=== PATIENT | male | born 1930 | race Caucasian/White ===

== ENCOUNTER 2017-06-05 10:32 | Inpatient (IN) ==
--- NOTE | 2017-06-05 11:08 | Emergency Department Note ---
Disposition Clinical Impression: Cellulitis Qualifiers: Site of cellulitis: buttock Qualified Code(s): L03.317 - Cellulitis of buttock DVT (deep venous thrombosis) Qualifiers: DVT location: lower extremity Affected thrombotic vein of extremity: other lower extremity vein Chronicity: acute Laterality: right Qualified Code(s): I82.491 - Acute embolism and thrombosis of other specified deep vein of right lower extremity Disposition: Admitted As Inpatient Condition: Fair Referrals: Giovanni Morrow MD [Primary Care Provider] - Forms: ED Satisfaction Letter Time of Disposition: 13:46 General Adult HPI - General Chief complaint: ED Extremity Problem,Nontraumatic Stated complaint: Knee pain Time Seen by Provider: 06/05/17 10:48 Source: patient Limitations: no limitations Nursing Notes Reviewed: Yes Vital Signs Reviewed: Yes - History of Present Illness HPI Narrative: 86-year-old male presents to the emergency department with abrupt sudden onset of right knee pain that started in the middle of the night. Patient states that his knee was hot and red. Patient also reported calf pain. Patient does have a previous history of DVTs. He is currently on blood thinners. Patient denies any shortness of breath, chest pain, pressure, tightness. Patient denies any hemoptysis. Patient denies any recent travel. Patient denies any fever or chills. Patient is also complaining of some pain of the superior aspect of his gluteal cleft. Patient does wear diapers. Patient says it is going on for 3 weeks. Patient denies using any creams or ointments on this area. Pain Scale: 10 - Related Data Previous Rx's Medication Instructions Recorded HYDROcodone/Acet 5/325 mg [[place] 1 tab PO Q4-6H PRN #20 tab 03/22/17 5-325 mg] Ondansetron ODT [Zofran ODT] 4 mg SL Q6HR PRN #14 tab.rapdis 03/22/17 Allergies Allergy/AdvReac Type Severity Reaction Status Date / Time No Known Allergies Allergy Verified 03/21/17 23:14 All systems ED: reviewed and negative except as stated. Review of Systems: As Per HPI Constitutional: Denies: fever, chills Respiratory: Denies: cough, dyspnea, wheezes, hemoptysis Musculoskeletal: Reports: other (Right knee pain) Integumentary: Reports: rash (In the gluteal region) Past Medical History - Past Medical History Medical history: Reports: cancer, DVT, hypertension - Social History Smoking Status: Never smoker Smokeless Tobacco Status: No Alcohol use: Reports: none Drug use: Reports: none Physical Exam General: Well Appearing, 86-year-old male, in no acute distress Head: autraumatic, EOMI, no conjuncitval pallor, no scleral icterus, Mouth: oral mucous membranes moist Neck: neck soft, trachea midline Chest:: Equal chest wall rise Lungs: Normal lungs sounds bilaterally, no wheezes, no respiratory distress Heart: normal heart sounds, normal rate and rhythm, Abdomen: soft, non-tender, no rigidity, no guarding, no rebdound tenderness Lower Extremities: Right knee has tenderness to palpation of the lateral aspect on the lateral epicondyle. There is no effusion, no erythema, no redness, no calor, there feels to be a possible Blankens[place] cyst on the posterior popliteal fossa , tenderness upon palpation of the right calf. There does not appear to be any increased swelling of the right leg. There is, however 1+ pitting edema of the left leg. No palpable cords. exam: Appears to be erythema up on the superior aspect of the gluteal cleft that appears irritated in nature, very tender to palpation, no areas of fluctuance or induration. Neuro: Alert Psych: normal affect, normal mood - General Limitations: no limitations General appearance: alert, in no apparent distress Course Vital Signs Temperature 97.6 F 06/05/17 10:33 Pulse Rate 63 06/05/17 10:33 Respiratory Rate 18 06/05/17 10:33 Blood Pressure 142/86 06/05/17 10:33 O2 Sat by Pulse Oximetry 97 06/05/17 10:33 Temperature 97.6 F 06/05/17 10:33 Pulse Rate 71 06/05/17 13:19 Respiratory Rate 16 06/05/17 13:19 Blood Pressure 128/69 06/05/17 13:19 O2 Sat by Pulse Oximetry 97 06/05/17 13:19 Oxygen Delivery Oxygen Delivery Room Air Medical Decision Making - MDM Narrative Medical decision making narrative: 86-year-old male with past history of DVT of which she is taking blood thinners for and arthritis presents to the emergency department with right knee pain and right calf pain that is concerning for DVT. We are obtaining a Doppler of the right lower extremity to rule out a DVT as this patient's abdomen the past. We are also obtaining plain films of the right knee to rule out fracture. At this time, I do not think it is necessary to perform a needle aspiration of the right knee has his knee does not appear to be septic or gouty. Also, there is an area of irritation from the superior aspect of the gluteal cleft that is this was tender to palpation physical exam. CT scan of the pelvis was obtained and revealed possible infection without abscess of the left buttock. Again this patient Keflex here orally. Knee x-ray of the right revealed moderate to severe bicompartmental the DuoNeb changes. Patient's knee does not appear to be swollen or red or erythematous to be suspicious of septic arthritis or gout. 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 Patient is currently on Coumadin. His INR is 2.5. Due to the fact that he is therapeutic on Coumadin and is failing outpatient management for blood clot, we will initiate heparin at this time. There is also concern for further propagation of the blood clot, so we will admit this patient to the hospital at this time for further management. I discussed the plan with patient and daughter at bedside and they agree with the plan for admission. I discussed this with the hospitalist and he agrees as well. Patient was not in any acute distress and was hemodynamically stable at time of admission to the hospital. Knee X-Ray 06/05/17 10:49 IMPRESSION: Moderate to severe bicompartmental degenerative changes. D/ / Melvin Magaña MD / Melvin Magaña MD Interpreting Provider: Melvin Magaña MD Pelvis CT 06/05/17 11:18 within the prostate. Prominent nodular impression on the undersurface of the bladder, similar to the prior examination. There is asymmetric soft tissue thickening along the posterior left buttock relative to the right. There is linear soft tissue thickening extending toward the ischial tuberosity on the left which is asymmetric to the right though no rim enhancing collection is identified. Mild induration is also demonstrated of the subcutaneous fat posterior to the sacrum, without drainable collection. No soft tissue emphysema at these sites. Partially sclerotic lesion within the proximal left femur, for which fibrous dysplasia is most common in an otherwise healthy patient. Degenerative change of the spine. IMPRESSION: Asymmetric soft tissue induration at the left buttock and posterior to the sacrum, suggestive of localized inflammation or infection, without evidence of rim enhancing collection to suggest abscess. Suggest correlation with physical examination. Diverticulosis. D/ / Luca Valles MD / Luca Valles MD Interpreting Provider: Luca Valles MD Vital Signs Temperature 97.6 F 06/05/17 10:33 Pulse Rate 63 06/05/17 10:33 Respiratory Rate 18 06/05/17 10:33 Blood Pressure 142/86 06/05/17 10:33 O2 Sat by Pulse Oximetry 97 06/05/17 10:33 Temperature 97.6 F 06/05/17 10:33 Pulse Rate 71 06/05/17 13:19 Respiratory Rate 16 06/05/17 13:19 Blood Pressure 128/69 06/05/17 13:19 O2 Sat by Pulse Oximetry 97 06/05/17 13:19 Oxygen Delivery Oxygen Delivery Room Air - Medical Records Medical records reviewed: Yes I reviewed the patient's medical records. - Lab Data Lab results reviewed: Yes I reviewed the patient's lab results. Result diagrams: 06/05/17 11:31 06/05/17 11:31 Lab Results 06/05/17 06/05/17 06/05/17 Range/Units 11:31 11:31 11:31 WBC 7.9 (4.3-11.1) K/mcL RBC 4.43 (4.19-5.50) M/mcL Hgb 14.1 (12.9-16.9) g/dL Hct 42.9 (37.5-50.1) % MCV 96.8 (83.0-100.0) fL MCH 31.8 (28.0-33.3) pg MCHC 32.9 (31.6-35.5) g/dL RDW 12.5 (11.5-14.5) % Plt Count 215 (140-400) K/mcL MPV 10.9 (9.4-12.4) fL Immature Gran % 0.5 (0-4) % Seg Neutrophils % 67.5 % Lymphocytes % 19.3 % Monocytes % 10.6 % Eosinophils % 1.5 % Basophils % 0.6 % Neutrophils # 5.4 (1.6-8.9) K/mcL Lymphocytes # 1.5 (0.6-4.6) K/mcL Monocytes # 0.8 (0.0-1.3) K/mcL Eosinophils # 0.1 (0.0-0.6) K/mcL Basophils # 0.1 (0.0-0.2) K/mcL Immature Plt Fraction 4.9 (1.1-6.1) % PT 26.5 H (9.4-12.1) Seconds INR 2.4 APTT 40.1 H (26.0-36.0) Seconds Sodium 141 (136-145) mEq/L Potassium 4.1 (3.5-4.5) mEq/L Chloride 107 (98-109) mEq/L Carbon Dioxide 24 (19-29) mEq/L BUN 21 (8-26) mg/dL Creatinine 1.18 (0.72-1.25) mg/dL Est GFR ( Amer) > 60 (> 60) Est GFR (Non-Af Amer) 59 L (> 60) BUN/Creatinine Ratio 18 (6-26) Glucose 132 H (70-99) mg/dL Calculated Osmolality 297 (280-300) Calcium 9.4 (8.6-10.8) mg/dL - Radiology Data Radiology results reviewed: Yes I reviewed the patient's radiology results. Critical Care Time Critical Care Time: Yes Total Critical Care Time: 35 Attestation: Critical care performed: Time is exclusive of separately billable procedures. Time includes: direct patient care, patient reassessment, coordination of patient care, interpretation of data (laboratory data, radiology data, and respiratory data), review of patient's medical records, medical consultation and documentation of patient care. Procedures included in critical care time: Procedures excluded from critical care time: Attestation Statement - Attestation Attestation: I, Chinedu Waters DO, examined this patient [id number] and my medical decision-making was reviewed with Dr. Fuentes Barnhart, Resident Physician. I agree with the documented findings, disposition and treatment plan as described except to the extent set forth below. Please see my progress notes for details. 86-year-old male presents to the emergency room with multiple complaints including right knee pain that has been there since Tuesday as well as skin irritation to the back of his tailbone. Patient currently wears diapers and has appears to be skin excoriation over the sacral area of the back. Does not appear to be any rectal involvement no visible signs of hemorrhoid. No firm indurated areas noted on exam. Patient does have tenderness and feels pressure when he sitting down on the couch or on a firm surface. Patient denies any other trauma or injury. No fevers no chills no nausea vomiting or diarrhea. Denies chest pain shortness of breath headache or vision change this time. Patient has not been on any antibiotics recently and has not had any manipulation or surgery. Patient also is complaining of right knee pain since Tuesday. He denies any redness or irritation to the knee. He has had this several times in the past and has required cortisone shots to help with the symptoms. Clinical examination shows a well-appearing lower extremity with no redness no swelling no visible signs of joint effusion. He does have tenderness to the medial compartment of the knee but no visible signs of irritation trauma or injury. He has normal neuromuscular function distally to the affected extremity at this time. No other visible signs of cellulitis or infectious etiology. He does have a history of deep venous thrombosis which is concerning at this point considering the presentation of the knee pain at this time. Patient will have Doppler study as well as imaging of the right lower extremity and CT of the pelvis with IV contrast making sure there is no subcutaneous abscesses noted on evaluation. See detailed documentation of the physical exam, medical intervention, medical decision-making and disposition the resident physician's note [id number] Patient found to have new propagation of DVT in the right lower extremity. Heparin order set was utilized at this time. Patient does not have any acute infectious etiology except for cellulitis on the posterior aspect of his back. Was given at this time. Patient discussed with the hospitals for admission. Other concerns or issues noted. Patient is currently therapeutic with his Coumadin to there is concern for progression of clot burden secondary to unknown etiology. Patient will be admitted for further evaluation. 1400 Patient has no acute signs of melenic stool hemoglobin is 14.1. Is currently appropriately anticoagulated on Coumadin. Clinical concern for acute GI bleed patient will be started on heparin drip at this time until definitive treatment is completed with either new anticoagulant or IVC filter.
[2017-06-05] MEDS ORDERED: 0.9 % Sodium Chloride 1,000 ML IVC ONE (11:18)
[2017-06-05 12:02] LABS: BUN/Creatinine Ratio 18 (6-26); Blood Urea Nitrogen 21 mg/dL (8-26); Calcium 9.4 mg/dL (8.6-10.8); Carbon Dioxide 24 mEq/L (19-29); Chloride 107 mEq/L (98-109); Glucose 132 mg/dL (70-99); Osmolality,Calculated 297 (280-300); Potassium 4.1 mEq/L (3.5-4.5); Sodium 141 mEq/L (136-145); eGFR For African Americans > 60 (> 60); eGFR For Non-African Americans 59 (> 60)
[2017-06-05 12:22] LABS: Basophils # 0.1 K/mcL (0.0-0.2); Basophils % 0.6 %; Eosinophils # 0.1 K/mcL (0.0-0.6); Eosinophils % 1.5 %; Hematocrit 42.9 % (37.5-50.1); Hemoglobin 14.1 g/dL (12.9-16.9); Immature Granulocytes % 0.5 % (0-4); Immature Platelets 4.9 % (1.1-6.1); Lymphocytes # 1.5 K/mcL (0.6-4.6); Lymphocytes % 19.3 %; Mean Corpuscular HGB Conc 32.9 g/dL (31.6-35.5); Mean Corpuscular Hemoglobin 31.8 pg (28.0-33.3); Mean Corpuscular Volume 96.8 fL (83.0-100.0); Mean Platelet Volume 10.9 fL (9.4-12.4); Monocytes # 0.8 K/mcL (0.0-1.3); Monocytes % 10.6 %; Neutrophils # 5.4 K/mcL (1.6-8.9); Platelet Count 215 K/mcL (140-400); Red Blood Count 4.43 M/mcL (4.19-5.50); Red Cell Distribution Width 12.5 % (11.5-14.5); Segmented Neutrophils % 67.5 %
[2017-06-05 12:29] LABS: INR 2.4; Prothrombin Time 26.5 Seconds (9.4-12.1)
[2017-06-05 12:31] LABS: Activated Partial Thrombo Time 40.1 Seconds (26.0-36.0)
[2017-06-05] MEDS ORDERED: *HR* Heparin 5,000 UNIT/ML VIAL IVP PRN ×2 (12:41)
[2017-06-05] MEDS ORDERED: *HR* Heparin 5,000 UNIT/ML VIAL IVP ONE (12:41)
[2017-06-05] MEDS: Heparin 25,000 UNIT/500 ML D5W 25,000 UNIT/500 ML MLS IVC SCH (13:09)
[2017-06-05] MEDS ORDERED: cephALEXin 250 MG CAPSULE PO ONE (13:37)
[2017-06-05] MEDS ORDERED: *HR* HYDROcodone/Acet 5/325 mg TABLET PO PRN (17:05)
[2017-06-05] MEDS ORDERED: Ondansetron 4 MG/2 ML VIAL IVP PRN (17:05)
[2017-06-05] MEDS ORDERED: *HR* Morphine 2 MG/ML SYRINGE IVP PRN (17:05)
[2017-06-05] MEDS ORDERED: Naloxone 0.4 MG/ML INJ IVP PRN (17:05)
[2017-06-05] MEDS ORDERED: Acetaminophen 325 MG TABLET PO PRN (17:05)
--- NOTE | 2017-06-05 19:40 | Internal Med History&Physical ---
<JackierachealдмитрийAncelmo puga - Last Filed: 06/05/17 21:05> Date of Encounter: 06/05/17 Time of Encounter: 17:00 Assessment and Plan (1) DVT (deep venous thrombosis) Current visit: Yes Status: Acute Acute DVT in RLE. Pt. has hx of DVTs and takes Coumadin. Heparin drip started. Monitor pt. for signs of bleeding. Coumadin will be be pharmacy dosed. Pt is at high risk for further morbidity d/t current DVT, current cellulitis, hx, and risk factors. Inpatient. Qualifiers: DVT location: lower extremity Affected thrombotic vein of extremity: other lower extremity vein Chronicity: acute Laterality: right Qualified Code(s) : I82.491 - Acute embolism and thrombosis of other specified deep vein of right lower extremity (2) Cellulitis Current visit: Yes Status: Acute Pelvis CT today shows asymmetric soft tissue induration of the left buttock and posterior to the sacrum, suggestive of localized inflammation or infection without evidence of rim-enhancing collection to suggest abscess. Pt. does not currently meet SIRS criteria but will be monitored closely. IVPB clindamycin 900 mg Q8HR for cellulitis infection. Monitor pt. and f/u labs for signs of increasing infection. Qualifiers: Site of cellulitis: buttock Qualified Code(s): L03.317 - Cellulitis of buttock (3) Prostate cancer Current visit: Yes Status: Chronic Hx of prostate cancer. Pt. had seed therapy performed. Stable. (4) HTN (hypertension) Current visit: Yes Status: Chronic Hx of chronic HTN. Monitor pt. and VS. Continue Losartan. Qualifiers: Hypertension type: essential hypertension Qualified Code(s): I10 - Essential (primary) hypertension (5) HLD (hyperlipidemia) Current visit: Yes Status: Chronic Hx of chronic HLD. Lipid panel in a.m. labs. Continue Zocor. Qualifiers: Hyperlipidemia type: pure hypercholesterolemia Qualified Code(s): E78.00 - Pure hypercholesterolemia, unspecified; E78.0 - Pure hypercholesterolemia (6) DVT prophylaxis Current visit: Yes Status: Acute Pt. placed on heparin drip for current DVT of right leg. Monitor pt. for signs of bleeding. Internal Medicine - H&P: HPI Chief complaint: Right knee pain Admitted From: Emergency Dept Plans for Post Hospital Care: Home History of present illness: Mr. Akbar is a 86 year old male with medical hx of prostate cancer, hx of DVTs , HLD, and HTN presents from the ED with chief complaint of pain in his right knee that began last evening. He states that his knee was hot and red and that he could not sleep because the pain was so bad. Also reports pain in his left buttock for the past three weeks. Patient reports hx of DVTs. He denies recent illness, fever, chills, nausea, vomiting, abdominal pain, diarrhea, constipation , changes in vision, unusual bleeding, chest pain, palpitations, numbness, tingling, dizziness, lightheadedness, pre-syncope, or syncope. Past Med Surg Social Fam HX - Past Medical History Source: patient, old records reviewed Medical history: cancer (Prostate), DVT, hypertension - Past Surgical History Surgical History: herniorrhaphy - Social History Smoking Status: Never smoker Smokeless Tobacco Status: No Alcohol use: none Drug use: none Current living situation: Home, With Family Activity Level: Independent ambulation Recent Out of Country Travel Within the Last 8 Weeks: No Exposure or Possible Exposure to Illness During Travel: No - Family History Son Race: Family Member Ethnicity: Non- Living Status: Still Living Hx Family Cardiac Disorders: Yes (son had 5 stents placed) Father Race: Family Member Ethnicity: Non- Living Status: (82) Age at : 82 Cause of : Stroke Hx Family Cardiac Disorders: Yes (CVA) Mother Race: Family Member Ethnicity: Non- Living Status: Age at : 74 Cause of : CAD Hx Family Cardiac Disorders: Yes (CAD, HTN) Hx Family Endocrine Disorder: Yes (DM) Brother Race: Family Member Ethnicity: Non- Living Status: Age at : 83 Cause of : PA Hx Family Cardiac Disorders: Yes (PA, HTN) Sister Race: Family Member Ethnicity: Non- Living Status: Still Living Hx Family Cardiac Disorders: Yes (Strokes) Hx Family Musculoskeletal Disorders: Yes (Muscle spasms) Internal Medicine - H&P: Meds HYDROcodone/Acet 5/325 mg [[place] 5-325 mg] 1 tab PO Q4-6H PRN #20 tab 03/22/17 [ Rx] Betamethasone Gabriella 0.1% Crm [Valisone 0.1%] 1 appl TP TID 06/05/17 [History] Losartan Potassium [Cozaar] 50 mg PO DAILY 06/05/17 [History] Simvastatin [Zocor] 20 mg PO DAILY 06/05/17 [History] Warfarin Sodium [Warfarin Sodium] 1.25 mg PO SUTUWEFRSA 06/05/17 [History] Warfarin Sodium [Warfarin Sodium] 2.5 mg PO MOTH 06/05/17 [History] 3 Allergy/AdvReac Type Severity Reaction Status Date / Time No Known Allergies Allergy Verified 03/21/17 23:14 All Systems PM: A 10-system review of systems was performed and is negative for pertinent findings except as documented above in the HPI. - Constitutional Constitutional: no chills, no fever(s), no night sweats - EENT Eyes: no change in vision, no discharge, no pain, no photophobia Ears: no ear discharge, no ear pain, no tinnitus Nose, mouth and throat: no dysphagia, no nasal discharge, no neck pain, no sore throat - Breasts Breasts: as per HPI - Cardiovascular Cardiovascular ROS IM: no chest pain, no diaphoresis, no dyspnea, no lightheadedness, no palpitations, no syncope - Respiratory Respiratory: no cough, no dyspnea, no wheezing, no excessive phlegm production - Gastrointestinal Gastrointestinal: no abdominal pain, no diarrhea, no hematemesis, no hematochezia, no melena, no nausea, no vomiting - Genitourinary Genitourinary ROS male: as per HPI - Musculoskeletal Musculoskeletal ROS IM: as per HPI, other (Pain in the right knee) - Integumentary Integumentary IM: as per HPI, other (Pain in left buttock, pain in the right knee) - Neurological Neurological ROS: no confusion, no convulsions, no focal weakness, no numbness, no tingling, no tremor(s) - Psychiatric Psychiatric: as per HPI - Endocrine Endocrine IM: as per HPI - Hematologic/Lymphatic Hematologic/Lymphatic: no easy bruising - Allergic/Immunologic Allergic/Immunologic: as per HPI - Constitutional Vitals: Temp Pulse Resp BP Pulse Ox 97.9 F 51 18 142/58 97 06/05/17 14:40 06/05/17 14:40 06/05/17 14:40 06/05/17 14:40 06/05/17 14:40 General appearance: Present: cooperative, A&O X 3, pleasant, no acute distress, obese, answers questions appropriately - Head Head exam: Present: atraumatic, normocephalic - Eye Eye exam: Present: PERRL, conjuntiva pink, sclera anicteric Pupils: Present: PERRL - ENT ENT exam: Present: normal exam - Neck Neck exam general surgery: Present: normal inspection, supple, trachea midline. Absent: lymphadenopathy - Respiratory Respiratory exam: Present: CTAB. Absent: accessory muscle use, rales, rhonchi, wheezes - Cardiovascular Cardiovascular exam: Present: RRR, +S1, +S2. Absent: diastolic murmur, gallop, rubs, systolic murmur - GI/Abdominal GI/Abdominal exam: Present: normal bowel sounds, soft, no peritoneal signs. Absent: distended, tenderness - Rectal Rectal exam: Present: deferred - Additional comments: exam deferred. - Extremities Exam Extremities exam: Present: warm, radial pulses palpable and symmetrical. Absent : calf tenderness, cyanotic, pedal edema - Back Exam Back exam: Present: normal inspection - Neurological Exam Neurological exam: Present: CN II-XII intact, oriented X3, no focal deficits. Absent: pronater drift, facial droop, speech deficit - Psychiatric Psychiatric exam: Present: normal affect, normal mood - Skin Skin exam: Present: dry, intact Internal Med - H&P Results - Labs CBC & Chem 7: 06/05/17 11:31 06/05/17 11:31 - Diagnostic Studies Other Images Additional comments: Impressions Knee X-Ray 06/05/17 10:49 IMPRESSION: Moderate to severe bicompartmental degenerative changes. D/ / Melvin Magaña MD / Melvin Magaña MD Interpreting Provider: Melvin Magaña MD CT scan - pelvis Additional comments: Impressions Pelvis CT 06/05/17 11:18 within the prostate. Prominent nodular impression on the undersurface of the bladder, similar to the prior examination. There is asymmetric soft tissue thickening along the posterior left buttock relative to the right. There is linear soft tissue thickening extending toward the ischial tuberosity on the left which is asymmetric to the right though no rim enhancing collection is identified. Mild induration is also demonstrated of the subcutaneous fat posterior to the sacrum, without drainable collection. No soft tissue emphysema at these sites. Partially sclerotic lesion within the proximal left femur, for which fibrous dysplasia is most common in an otherwise healthy patient. Degenerative change of the spine. IMPRESSION: Asymmetric soft tissue induration at the left buttock and posterior to the sacrum, suggestive of localized inflammation or infection, without evidence of rim enhancing collection to suggest abscess. Suggest correlation with physical examination. Diverticulosis. D/ / Luca Valles MD / Luca Valles MD Interpreting Provider: Luca Valles MD <Zeus Walters P - Last Filed: 06/06/17 13:44> Date of Encounter: 06/06/17 Internal Medicine - H&P: HPI History of present illness: Mr. Akbar is a 86 year old male All Systems PM: A 10-system review of systems was performed and is negative for pertinent findings except as documented above in the HPI. - Constitutional Vitals: Temp Pulse Resp BP Pulse Ox 98.0 F 62 14 123/74 96 06/06/17 11:26 06/06/17 11:26 06/06/17 11:26 06/06/17 11:26 06/06/17 11:26 Internal Med - H&P Results - Labs CBC & Chem 7: 06/06/17 04:26 06/06/17 04:26 Labs: Short CBC 06/06/17 Range/Units 04:26 WBC 6.8 (4.3-11.1) K/mcL Hgb 12.8 L (12.9-16.9) g/dL Hct 39.3 (37.5-50.1) % Plt Count 183 (140-400) K/mcL Neutrophils # 3.9 (1.6-8.9) K/mcL BMP 06/06/17 04:26 Sodium 140 Potassium 4.1 Chloride 109 Carbon Dioxide 21 BUN 18 Creatinine 1.20 Glucose 153 H Calcium 8.5 L Liver Function 06/06/17 Range/Units 04:26 Total Bilirubin 0.2 (0.2-1.2) mg/dL AST 19 (5-34) Units/L ALT 16 (0-55) Units/L Alkaline Phosphatase 54 (38-126) Units/L Albumin 3.0 L (3.5-5.0) g/dL - Attending Attestation I examined this patient and my medical decision-making was reviewed with the Resident Physician/ BOG WORKER. I agree with the documented findings, disposition and treatment plan as described except to the extent set forth below.
[2017-06-05 20:34] LABS: Activated Partial Thrombo Time > 360.0 Seconds (26.0-36.0)
[2017-06-05] MEDS: BETAMETHASONE VALERATE 0.1% TP SCH (20:36)
[2017-06-05 20:45] LABS: Heparin anti-factor XA UFH 1.31 IU/mL (0.30-0.70)
[2017-06-06] MEDS ORDERED: Clindamycin 900 MG/50 ML 900 MG/50 ML IV.SOLN IVPB SCH
[2017-06-06] MEDS: Clindamycin 900 MG/50 ML 900 MG/50 ML IV.SOLN IVPB SCH ×3 (04:32→21:07)
[2017-06-06 04:56] LABS: Basophils # 0.1 K/mcL (0.0-0.2); Basophils % 0.7 %; Eosinophils # 0.2 K/mcL (0.0-0.6); Eosinophils % 3.1 %; Hematocrit 39.3 % (37.5-50.1); Hemoglobin 12.8 g/dL (12.9-16.9); Immature Granulocytes % 0.4 % (0-4); Lymphocytes # 1.9 K/mcL (0.6-4.6); Lymphocytes % 28.6 %; Mean Corpuscular HGB Conc 32.6 g/dL (31.6-35.5); Mean Corpuscular Hemoglobin 31.4 pg (28.0-33.3); Mean Corpuscular Volume 96.6 fL (83.0-100.0); Mean Platelet Volume 10.9 fL (9.4-12.4); Monocytes # 0.6 K/mcL (0.0-1.3); Monocytes % 9.3 %; Neutrophils # 3.9 K/mcL (1.6-8.9); Platelet Count 183 K/mcL (140-400); Red Blood Count 4.07 M/mcL (4.19-5.50); Red Cell Distribution Width 12.4 % (11.5-14.5); Segmented Neutrophils % 57.9 %
[2017-06-06 05:04] LABS: INR 2.4; Prothrombin Time 26.2 Seconds (9.4-12.1)
[2017-06-06 05:18] LABS: Activated Partial Thrombo Time 225.1 Seconds (26.0-36.0)
[2017-06-06 05:26] LABS: Heparin anti-factor XA UFH 0.66 IU/mL (0.30-0.70)
[2017-06-06 05:35] LABS: Alanine Aminotransferase 16 Units/L (0-55); Albumin/Globulin Ratio 0.9 (1.1-2.2); Alkaline Phosphatase 54 Units/L (38-126); Aspartate Amino Transferase 19 Units/L (5-34); BUN/Creatinine Ratio 15 (6-26); Bilirubin,Total 0.2 mg/dL (0.2-1.2); Blood Urea Nitrogen 18 mg/dL (8-26); Calcium 8.5 mg/dL (8.6-10.8); Carbon Dioxide 21 mEq/L (19-29); Chloride 109 mEq/L (98-109); Chol/HDL Ratio 4.6 (0-4.9); Cholesterol 125 mg/dL (< 200); Globulin 3.4 g/dL (2.4-3.5); Glucose 153 mg/dL (70-99); HDL Cholesterol 27 mg/dL (40-59); LDL Cholesterol,Calculated 65 mg/dL (0-99); Magnesium 1.9 mg/dL (1.6-2.6); Osmolality,Calculated 295 (280-300); Potassium 4.1 mEq/L (3.5-4.5); Sodium 140 mEq/L (136-145); Total Protein 6.4 g/dL (6.0-8.3); Triglycerides 166 mg/dL (< 150); eGFR For African Americans > 60 (> 60); eGFR For Non-African Americans 58 (> 60)
[2017-06-06] MEDS: BETAMETHASONE VALERATE 0.1% TP SCH ×3 (09:16→21:07)
--- NOTE | 2017-06-06 14:33 | Internal Med Progress Note ---
Date of Encounter: 06/06/17 Time of Encounter: 13:15 - Assessment and plan (1) Cellulitis Current Visit: Yes Status: Acute Assessment and plan: continue empiric abx f/u blood culture reports duration of abx depends on clinical response pt educated about the need to keep the area clean and frequent change of his soiled diapers, pt willing to comply Qualifiers: Site of cellulitis: buttock Qualified Code(s): L03.317 - Cellulitis of buttock (2) DVT (deep venous thrombosis) Current Visit: Yes Status: Acute Assessment and plan: Noted to have acute right tibioperoneal DVT despite being on coumadin therapy continue heparin gtt at this time Hematology consultation requested for mcc management, as patient appears to have failed coumadin therapy despite maintaining a therapeutic INR Qualifiers: DVT location: lower extremity Affected thrombotic vein of extremity: other lower extremity vein Chronicity: acute Laterality: right Qualified Code(s) : I82.491 - Acute embolism and thrombosis of other specified deep vein of right lower extremity (3) HLD (hyperlipidemia) Current Visit: Yes Status: Chronic Assessment and plan: continue home meds Qualifiers: Hyperlipidemia type: pure hypercholesterolemia Qualified Code(s): E78.00 - Pure hypercholesterolemia, unspecified; E78.0 - Pure hypercholesterolemia (4) HTN (hypertension) Current Visit: Yes Status: Chronic Assessment and plan: BP within acceptable range continue home medications Qualifiers: Hypertension type: essential hypertension Qualified Code(s): I10 - Essential (primary) hypertension (5) Prostate cancer Current Visit: Yes Status: Chronic - Subjective Interval history: Patient seen and examined with family present at bedside. Patient reports of feeling better compared to previous day. Pt is noted to have erythema surrounding the sacral area and as per ( present at bedside), patient has history of poor hygiene and does not change his soiled diapers frequently. 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 Absent: respiratory distress, wheezes - Cardiovascular Cardiovascular exam: Present: RRR, +S1, +S2 - GI/Abdominal GI/Abdominal exam: Present: normal bowel sounds, soft, no peritoneal signs. Absent: distended, tenderness - Extremities Exam Extremities exam: Present: pedal edema, tenderness (right knee tenderness to palpation ), warm, radial pulses palpable and symmetrical. Absent: calf tenderness - Back Exam Additional comments: erythema noted to sacral region, no skin tear noted - Neurological Exam Neurological exam: Present: alert, oriented X3 - Psychiatric Psychiatric exam: Present: normal affect, normal mood Internal Medicine: Result - Labs CBC & Chem 7: 06/06/17 04:26 06/06/17 04:26 Labs: Short CBC 06/06/17 Range/Units 04:26 WBC 6.8 (4.3-11.1) K/mcL Hgb 12.8 L (12.9-16.9) g/dL Hct 39.3 (37.5-50.1) % Plt Count 183 (140-400) K/mcL Neutrophils # 3.9 (1.6-8.9) K/mcL BMP 06/06/17 04:26 Sodium 140 Potassium 4.1 Chloride 109 Carbon Dioxide 21 BUN 18 Creatinine 1.20 Glucose 153 H Calcium 8.5 L Liver Function 06/06/17 Range/Units 04:26 Total Bilirubin 0.2 (0.2-1.2) mg/dL AST 19 (5-34) Units/L ALT 16 (0-55) Units/L Alkaline Phosphatase 54 (38-126) Units/L Albumin 3.0 L (3.5-5.0) g/dL - ABG Interpretation ABG results: PT/INR, D-dimer PT 26.2 Seconds (9.4-12.1) H 06/06/17 04:26 Consult Discharge Plan - Plan Referrals: Giovanni Morrow MD [Primary Care Provider] -
--- NOTE | 2017-06-06 15:28 | Oncology Inp Consult Note ---
Date of Encounter: 06/06/17 Time of Encounter: 17:00 Assessment and Plan (1) DVT (deep venous thrombosis) Status: Acute Assessment and plan: Deep venous thrombosis, acute lower extremity, right tibia peroneal vein thrombosis. Patient reports that he has had multiple prior DVT, has been on Coumadin for many years. He also has a inferior vena cava filter placed. INR has been therapeutic. Patient is ambulatory and does not have any recent sickness. We discussed briefly oral anticoagulation with alternative anticoagulants, Xarelto. He could be discharged home on 15 mg twice daily and follow up in the clinic for long-term anticoagulations. PSA added to labs history of prostate cancer in the past noted. Risks benefits of long-term anticoagulation, patient is aware. Currently without any evidence of bleeding lab works reviewed. Plan of care discussed in detail with patient. Qualifiers: DVT location: lower extremity Affected thrombotic vein of extremity: other lower extremity vein Chronicity: acute Laterality: right Qualified Code(s) : I82.491 - Acute embolism and thrombosis of other specified deep vein of right lower extremity - Data of Consult Requesting Physician: Nano Ventura MD Primary Care Provider: Giovanni Morrow MD - Consult Narrative Reason for consult: DVT on coumadin History of present illness: Mr. Akbar is a 86 year old male with medical history significant for deep venous thrombosis was taking Coumadin, with INR that appears to be therapeutic, history of prostate cancer, hypertension, hyperlipidemia developed pain in the right knee as well as pain in the left buttock for the last 3 weeks. A venous Doppler of the lower extremity shows a right tibial peroneal vein acute thrombosis right superficial femoral chronic thrombosis. He underwent Ct pelvis- -for pain-that showed asymmetric soft tissue induration at the left buttock and posterior to the sacrum, suggestive of localized inflammation or infection. No evidence of abscess, he is on clindamycin to treat possible cellulitis, without leukocytosis not needing drainage. He has been started here on Coumadin, hematology consulted as patient now has acute right lower extremity deep venous thrombosis on coumadin. He denies any blood in stool or hematuria. His pain in the left lower back has been present for the last few days only. He has a history of prostate cancer previously unknown. Review of systems negative for any shortness of breath chest pain or palpitations. Past Med Surg Social Fam HX - Past Medical History Medical history: cancer (Prostate), DVT, hypertension - Past Surgical History Surgical History: herniorrhaphy - Social History Smoking Status: Never smoker Smokeless Tobacco Status: No Alcohol use: none Drug use: none - Family History Son Race: Family Member Ethnicity: Non- Living Status: Still Living Hx Family Cardiac Disorders: Yes (son had 5 stents placed) Father Race: Family Member Ethnicity: Non- Living Status: (82) Age at : 82 Cause of : Stroke Hx Family Cardiac Disorders: Yes (CVA) Mother Race: Family Member Ethnicity: Non- Living Status: Age at : 74 Cause of : CAD Hx Family Cardiac Disorders: Yes (CAD, HTN) Hx Family Endocrine Disorder: Yes (DM) Brother Race: Family Member Ethnicity: Non- Living Status: Age at : 83 Cause of : RI Hx Family Cardiac Disorders: Yes (RI, HTN) Sister Race: Family Member Ethnicity: Non- Living Status: Still Living Hx Family Cardiac Disorders: Yes (Strokes) Hx Family Musculoskeletal Disorders: Yes (Muscle spasms) Medications and Allergies HYDROcodone/Acet 5/325 mg [[place] 5-325 mg] 1 tab PO Q4-6H PRN #20 tab 03/22/17 [ Rx] Betamethasone Gabriella 0.1% Crm [Valisone 0.1%] 1 appl TP TID 06/05/17 [History] Losartan Potassium [Cozaar] 50 mg PO DAILY 06/05/17 [History] Simvastatin [Zocor] 20 mg PO DAILY 06/05/17 [History] Warfarin Sodium [Warfarin Sodium] 1.25 mg PO SUTUWEFRSA 06/05/17 [History] Warfarin Sodium [Warfarin Sodium] 2.5 mg PO MOTH 06/05/17 [History] 3 Allergy/AdvReac Type Severity Reaction Status Date / Time No Known Allergies Allergy Verified 03/21/17 23:14 Review of systems: as in HPI Oncology - Exam - Constitutional Vitals: Temp Pulse Resp BP Pulse Ox 98.0 F 62 14 123/74 96 06/06/17 11:26 06/06/17 11:26 06/06/17 11:26 06/06/17 11:26 06/06/17 11:26 General appearance: average body habitus - Head Head exam: Present: atraumatic, normal inspection - Eye Eye exam: Present: sclera anicteric - ENT ENT exam: Present: mucous membranes moist, normal exam - Respiratory Respiratory exam: Present: CTAB - Cardiovascular Cardiovascular exam: Present: +S1, +S2 - GI/Abdominal GI/Abdominal exam: Present: normal bowel sounds, soft - Extremities Exam Extremities exam: Present: pedal edema - Neurological Exam Neurological exam: Present: alert, CN II-XII intact, oriented X3, no focal deficits Oncology - Results Labs: Short CBC 06/06/17 Range/Units 04:26 WBC 6.8 (4.3-11.1) K/mcL Hgb 12.8 L (12.9-16.9) g/dL Hct 39.3 (37.5-50.1) % Plt Count 183 (140-400) K/mcL Neutrophils # 3.9 (1.6-8.9) K/mcL BMP 06/06/17 04:26 Sodium 140 Potassium 4.1 Chloride 109 Carbon Dioxide 21 BUN 18 Creatinine 1.20 Glucose 153 H Calcium 8.5 L Liver Function 06/06/17 Range/Units 04:26 Total Bilirubin 0.2 (0.2-1.2) mg/dL AST 19 (5-34) Units/L ALT 16 (0-55) Units/L Alkaline Phosphatase 54 (38-126) Units/L Albumin 3.0 L (3.5-5.0) g/dL Consult Discharge Plan - Plan Referrals: Giovanni Morrow MD [Primary Care Provider] -
[2017-06-06] MEDS ORDERED: *HR* Warfarin 2.5 MG TABLET PO ONE (18:00)
[2017-06-06] MEDS ORDERED: Warfarin perPT PO PRN (18:00)
[2017-06-06] MEDS: Heparin 25,000 UNIT/500 ML D5W 25,000 UNIT/500 ML MLS IVC SCH (21:07)
[2017-06-07 02:21] LABS: Basophils % 0.6 %; Eosinophils # 0.3 K/mcL (0.0-0.6); Hematocrit 37.3 % (37.5-50.1); Hemoglobin 12.5 g/dL (12.9-16.9); Immature Granulocytes % 0.4 % (0-4); Lymphocytes # 1.6 K/mcL (0.6-4.6); Lymphocytes % 23.1 %; Mean Corpuscular HGB Conc 33.5 g/dL (31.6-35.5); Mean Corpuscular Hemoglobin 32.3 pg (28.0-33.3); Mean Corpuscular Volume 96.4 fL (83.0-100.0); Mean Platelet Volume 10.8 fL (9.4-12.4); Monocytes # 0.7 K/mcL (0.0-1.3); Monocytes % 10.4 %; Neutrophils # 4.2 K/mcL (1.6-8.9); Platelet Count 189 K/mcL (140-400); Red Blood Count 3.87 M/mcL (4.19-5.50); Red Cell Distribution Width 12.2 % (11.5-14.5); Segmented Neutrophils % 61.5 %
[2017-06-07 02:22] LABS: Magnesium 2.2 mg/dL (1.6-2.6); Phosphorous 3.4 mg/dL (2.3-4.7)
[2017-06-07 02:25] LABS: Alanine Aminotransferase 14 Units/L (0-55); Albumin/Globulin Ratio 0.9 (1.1-2.2); Alkaline Phosphatase 55 Units/L (38-126); Aspartate Amino Transferase 16 Units/L (5-34); BUN/Creatinine Ratio 15 (6-26); Bilirubin,Total 0.2 mg/dL (0.2-1.2); Blood Urea Nitrogen 18 mg/dL (8-26); Calcium 8.9 mg/dL (8.6-10.8); Carbon Dioxide 25 mEq/L (19-29); Chloride 109 mEq/L (98-109); Globulin 3.5 g/dL (2.4-3.5); Glucose 149 mg/dL (70-99); Osmolality,Calculated 293 (280-300); Potassium 4.4 mEq/L (3.5-4.5); Sodium 139 mEq/L (136-145); Total Protein 6.5 g/dL (6.0-8.3); eGFR For African Americans > 60 (> 60); eGFR For Non-African Americans 58 (> 60)
[2017-06-07] MEDS: Clindamycin 900 MG/50 ML 900 MG/50 ML IV.SOLN IVPB SCH (04:32)
[2017-06-07] MEDS ORDERED: *HR* Rivaroxaban 15 MG TABLET PO SCH (09:00)
[2017-06-07 09:38] LABS: Activated Partial Thrombo Time 126.5 Seconds (26.0-36.0)
[2017-06-07] MEDS: BETAMETHASONE VALERATE 0.1% TP SCH (09:43)
[2017-06-07 10:09] LABS: Heparin anti-factor XA UFH 0.43 IU/mL (0.30-0.70)
--- NOTE | 2017-06-07 13:07 | Discharge Summary ---
Date of Encounter: 06/07/17 Time of Encounter: 12:35 - Discharge Diagnosis (1) Cellulitis Priority: Secondary Status: Acute Qualifiers: Site of cellulitis: buttock Qualified Code(s): L03.317 - Cellulitis of buttock (2) DVT (deep venous thrombosis) Priority: Primary Status: Acute Qualifiers: DVT location: lower extremity Affected thrombotic vein of extremity: other lower extremity vein Chronicity: acute Laterality: right Qualified Code(s) : I82.491 - Acute embolism and thrombosis of other specified deep vein of right lower extremity (3) HLD (hyperlipidemia) Priority: Secondary Status: Chronic Qualifiers: Hyperlipidemia type: pure hypercholesterolemia Qualified Code(s): E78.00 - Pure hypercholesterolemia, unspecified; E78.0 - Pure hypercholesterolemia (4) HTN (hypertension) Priority: Secondary Status: Chronic Qualifiers: Hypertension type: essential hypertension Qualified Code(s): I10 - Essential (primary) hypertension (5) Prostate cancer Priority: Secondary Status: Chronic - Discharge Medications Prescriptions: RX: Clindamycin HCl [Cleocin HCl] 300 mg PO TID #16 cap Home Medications: HYDROcodone/Acet 5/325 mg [[place] 5-325 mg] 1 tab PO Q4-6H PRN #20 tab 03/22/17 [ Rx] Betamethasone Gabriella 0.1% Crm [Valisone 0.1%] 1 appl TP TID 06/05/17 [History] Losartan Potassium [Cozaar] 50 mg PO DAILY 06/05/17 [History] Simvastatin [Zocor] 20 mg PO DAILY 06/05/17 [History] Clindamycin HCl [Cleocin HCl] 300 mg PO TID #16 cap 06/07/17 [Rx] Rivaroxaban [Xarelto] 15 mg PO BIDWM tablet 06/07/17 [Rx] Allergies/Adverse Reactions: 3 Allergy/AdvReac Type Severity Reaction Status Date / Time No Known Allergies Allergy Verified 03/21/17 23:14 Date of admission: 06/05/17 17:06 Primary care physician: Giovanni Morrow MD Consults: 06/06/17 08:39 Consult to Oncology Hematology [CONS] Routine Consulting Provider: Donan Powers Reason for Consult: recurrent DVT despite anticoagulation therapy Call Completed: Yes 06/06/17 14:41 Consult to Physical Therapy [CONS] Routine Comment: Evaluate, develop and implement POC Reason for Consult: evaluation for placement Discharging clinician: Nano Ventura Anticipated date of discharge: 06/07/17 - Patient Status Disposition: Home, Self-Care Condition: Good Functional capacity at discharge: uses cane/walker Overall status at discharge: patient is back to baseline - Discharge Instructions Follow Up With: Giovanni Morrow MD [Primary Care Provider] - Additional Instructions: Please follow up with your primary care physician and parquet floor layer within one week after your discharge from the hospital. Your home medication of Coumadin has been discontinued. Xarelto 15mg twice a day has been added to your home medications. Your parquet floor layer will be managing continuation of this medication Please continue oral antibiotics with meals as prescribed. Resume all other medications as prescribed by your primary care physician. - Diet and Activity Activity: resume usual activities as tolerated Diet: low salt diet Hospital course: Mr. Akbar is a 86 year old male with PMH of PE, s/p IVC filter placement, DVT , HTN who was admitted for lower extremity pain and was found to have new acute LE DVT. He was noted to have failed coumadin therapy as he was found to have recurrent DVT despite having INR within therapeutic range. He was started on heparin gtt and hematology was consulted. He was switched to Xarelto, and heparin gtt and coumadin were discontinued. He was also noted to have sacral/ buttock erythema concerning for cellulitis for which he was started on IV abx. He responded well to therapy and reports of improvement of his presenting symptoms. He is currently hemodynamically stable and will be discharged to home with Xarelto and abx. He is to follow up with PCP and hematology after discharge. - Time Spent with Patient Total time spent providing and/or coordinating discharge services: Greater than 30 minutes - Constitutional Vitals: Temp Pulse Resp BP Pulse Ox 97.8 F 55 16 128/73 95 06/07/17 08:24 06/07/17 08:24 06/07/17 08:24 06/07/17 08:24 06/07/17 08:24 General appearance: Present: cooperative, A&O X 3, pleasant, no acute distress, obese, answers questions appropriately - Head Head exam: Present: atraumatic, normocephalic - Eye Eye exam: Present: conjuntiva pink, sclera anicteric - Respiratory Respiratory exam: Absent: respiratory distress, wheezes - Cardiovascular Cardiovascular exam: Present: RRR, +S1, +S2. Absent: diastolic murmur, gallop, rubs, systolic murmur - GI/Abdominal GI/Abdominal exam: Present: normal bowel sounds, soft, no peritoneal signs. Absent: distended, tenderness - Extremities Exam Extremities exam: Present: warm, radial pulses palpable and symmetrical. Absent : calf tenderness - Neurological Exam Neurological exam: Present: alert, oriented X3
[2017-06-07 13:53] VITALS: BP 119/71
== END 2017-06-07 15:15 | disposition home or self-care (01) | DRG 253 ==
LOC: 3NENU 10:32 → EMEROO 10:32 → 3NENU 14:28 → SUATTDRO 17:06
PROVIDERS: ADMIT Nurse Practitioner Family; ATTEND Internal Medicine

== ENCOUNTER 2018-04-10 09:02 | Observation (INO) ==
--- NOTE | 2018-04-10 09:39 | Emergency Department Note ---
Disposition Clinical Impression: Pulmonary nodule, History of prostate cancer, Hx of factor V Leiden mutation Chest pain Qualifiers: Chest pain type: unspecified Qualified Code(s): R07.9 - Chest pain, unspecified Disposition: Admitted As Inpatient Condition: Good Time of Disposition: 11:47 General Adult HPI - General Chief complaint: ED Chest Pain Stated complaint: Chest heaviness Time Seen by Provider: 04/10/18 09:13 Source: patient Mode of arrival: ambulatory Limitations: no limitations Nursing Notes Reviewed: Yes Vital Signs Reviewed: Yes - History of Present Illness HPI Narrative: Patient is an 87-year-old male with a past medical history of factor V, prostate cancer, DVT, PE and Malina filter currently on Coumadin presents the emergency department primarily further evaluation of chest pressure that has been going on for the past 3 weeks. The patient states that his symptoms have been intermittent. He describes it as a 5/10 pain across his chest. Denies any associated dyspnea, exertional component, nausea or vomiting. Patient also complaining of mild diffuse abdominal pain but is currently asymptomatic at this time. States that he is chronically dyspneic but there is no new dyspnea. States he has never had a VT in the past however he has had cardiac catheterization 2 times. Patient also states that he had one episode yesterday evening while he was sleeping when he had a sharp pain in his neck that he felt chilled through his entire body. According to his son the patient has been having issues with his neck and his currently planning to undergo some type of neck injection for relief of pain once they are able to switch him off his Coumadin on Lovenox for a 5 day period. - Related Data Home Medications Medication Instructions Recorded Confirmed Losartan Potassium [Cozaar] 50 mg PO DAILY 06/05/17 04/10/18 Simvastatin [Zocor] 20 mg PO HS 06/05/17 04/10/18 Timolol [Betimol] 1 drop BOTH EYES DAILY 04/10/18 04/10/18 Tizanidine HCl [Zanaflex] 2 mg PO DAILY PRN 04/10/18 04/10/18 Warfarin Sodium [Warfarin Sodium] 1.25 mg PO SUTUWEFRSA 04/10/18 04/10/18 Warfarin Sodium [Warfarin Sodium] 2.5 mg PO MOTH 04/10/18 04/10/18 Allergies Allergy/AdvReac Type Severity Reaction Status Date / Time No Known Allergies Allergy Verified 04/10/18 11:08 All systems ED: reviewed and negative except as stated. Review of Systems: As Per HPI Constitutional: Denies: fever, chills Cardiovascular: Reports: chest pain, dyspnea on exertion (chronic). Denies: palpitations, edema Respiratory: Reports: dyspnea. Denies: cough, wheezes, hemoptysis Gastrointestinal: Reports: abdominal pain. Denies: nausea, vomiting, diarrhea Genitourinary: Denies: urgency, dysuria Musculoskeletal: Denies: back pain, neck pain Integumentary: Denies: rash Neurological: Denies: headache, weakness Past Medical History - Past Medical History Attestation: Yes The following information was validated with the patient. Medical history: Reports: cancer, DVT, hypertension Surgical history: Reports: herniorrhaphy Psychiatric history: Reports: no psych history - Social History Smoking Status: Never smoker Smokeless Tobacco Status: No Alcohol use: Reports: none Drug use: Reports: none Physical Exam CONSTITUTIONAL: Well-appearing; well-nourished; A&O X 3, in no apparent distress HEAD: Normocephalic; atraumatic EYES: PERRL, no scleral icterus NOSE: The nose is normal in appearance without rhinorrhea NECK: No JVD or distended neck veins RESP: Normal chest excursion with respiration; breath sounds clear and equal bilaterally; no wheezes, rhonchi, or rales CARD: Regular rhythm, without murmurs, rub or gallop ABD: Non-distended; non-tender, soft, without rigidity, rebound or guarding,no pulsatile mass CHEST: No pain with palpation SKIN: Normal for age and race; warm and dry without diaphoresis ; no apparent lesions EXTREMITIES: Pulses are 2 plus and equal times 4 extremities, no peripheral edema or calf muscle pain NEUROLOGICAL: Patient is alert and oriented times three. Cranial nerves III- XII are intact. Sensory and motor functions are intact. Strength is 5/5 for flexion and extension in all 4 extremities. Patellar DTRS are equal and intact. Finger to nose testing is equal and normal bilaterally. Course Course Narrative: HEART Score of moderate. Plan at this time is to work the patient up for his chest pain has been going on for the past 3 weeks and is currently intermittent. He will undergo a chest x-ray, EKG as well as troponin. Given his history of his clotting disorder, patient will also undergo evaluation for pulmonary embolism pending metabolic panel results. We will treat the patient's pain with morphine at this time. Declined an aspirin, states he can't take them with his warfarin. Discussed with patient we will also evaluate his abdominal pain given complaints and recent outpatient KUB that negative. - Reevaluation(s) Reevaluation #1: Patient labwork was unremarkable. CT of the chest and abdomen negative for acute findings or PE. Pain improved with morphine. Patient admitted to the hospital for further evaluation and workup of his chest pain. Spoke with the hospitalist on-call, and he accepts the patient. Time: 11:46 Reevaluation #2: Patient pain consistent after morphine. Will start on nitro drip, given low blood pressure can tolerate. COAGs were also added. Time: 12:01 Vital Signs Temperature 98.5 F 04/10/18 09:26 Pulse Rate 62 04/10/18 09:26 Respiratory Rate 16 04/10/18 09:26 Blood Pressure 135/77 04/10/18 09:26 O2 Sat by Pulse Oximetry 95 04/10/18 09:26 Temperature 98.5 F 04/10/18 09:26 Pulse Rate 48 04/10/18 12:17 Respiratory Rate 18 04/10/18 12:17 Blood Pressure 116/64 04/10/18 12:17 O2 Sat by Pulse Oximetry 96 04/10/18 12:17 Oxygen Delivery Oxygen Delivery Room Air Medical Decision Making - Medical Records Medical records reviewed: Yes I reviewed the patient's medical records. - Lab Data Lab results reviewed: Yes I reviewed the patient's lab results. Result diagrams: 04/10/18 09:35 04/10/18 09:35 Lab Results 04/10/18 04/10/18 04/10/18 Range/Units 09:32 09:35 09:35 WBC 8.6 (4.3-11.1) K/mcL RBC 4.32 (4.19-5.50) M/mcL Hgb 13.7 (12.9-16.9) g/dL Hct 41.0 (37.5-50.1) % MCV 94.9 (83.0-100.0) fL MCH 31.7 (28.0-33.3) pg MCHC 33.4 (31.6-35.5) g/dL RDW 12.5 (11.5-14.5) % Plt Count 209 (140-400) K/mcL MPV 10.5 (9.4-12.4) fL Immature Gran % 0.5 (0-4) % Seg Neutrophils % 73.5 % Lymphocytes % 15.4 % Monocytes % 8.7 % Eosinophils % 1.3 % Basophils % 0.6 % Neutrophils # 6.3 (1.6-8.9) K/mcL Lymphocytes # 1.3 (0.6-4.6) K/mcL Monocytes # 0.7 (0.0-1.3) K/mcL Eosinophils # 0.1 (0.0-0.6) K/mcL Basophils # 0.1 (0.0-0.2) K/mcL Sodium 136 (136-145) mEq/L Potassium 4.3 (3.5-5.1) mEq/L Chloride 104 (98-107) mEq/L Carbon Dioxide 27 (23-29) mEq/L BUN 21 (8-23) mg/dL Creatinine 1.19 (0.70-1.30) mg/dL Est GFR ( Amer) > 60 (> 60) Est GFR (Non-Af Amer) 58 L (> 60) BUN/Creatinine Ratio 18 (6-26) Glucose 186 H (70-105) mg/dL Calculated Osmolality 290 (280-300) Calcium 9.2 (8.6-10.3) mg/dL Troponin I < 0.03 (< 0.04) ng/mL B-Natriuretic Peptide 24 (Less than 100) pg/mL - Radiology Data Radiology results reviewed: Yes I reviewed the patient's radiology results. Chest X-Ray 04/10/18 09:14 IMPRESSION: No acute abnormalities are identified. Stable prominence of aortic arch which could relate to ectasia/aneurysm. If there is clinical concern for acute aortic pathology, consider CTA evaluation. D/ : / 04/10/2018 10:00:11 Balbir Kang MD / aqu[facility] Interpreting Provider: Balbir Kang MD Abdomen/Pelvis CT 04/10/18 10:13 IMPRESSION: No acute central or segmental pulmonary embolus. Linear filling defect within a right lower lobe pulmonary artery branch is more suggestive of a remote/chronic nonocclusive pulmonary embolus. No acute pulmonary process. 4 mm left lower lobe nodule. Hepatic steatosis. Sigmoid diverticulosis without acute diverticulitis. Focal prostate nodule. Correlate with PSA values. RECOMMENDATIONS: Fleischner Society guidelines for follow-up and management of incidentally detected pulmonary nodules: Single Solid Nodule: Nodule size less than 6 mm In a low-risk patient, no routine follow-up. In a high-risk patient, optional CT at 12 months. - Low risk patients include individuals with minimal or absent history of smoking and other known risk factors. - High risk patients include individuals with a history or smoking or known risk factors. Radiology 2017 http://pubs.rsna.org/doi/full/10.1148/radiol.[email or web address] D/ / 04/10/2018 11:29:29 Shaw Betts MD / michael Interpreting Provider: Shaw Betts MD Chest CTA 04/10/18 10:13 IMPRESSION: No acute central or segmental pulmonary embolus. Linear filling defect within a right lower lobe pulmonary artery branch is more suggestive of a remote/chronic nonocclusive pulmonary embolus. No acute pulmonary process. 4 mm left lower lobe nodule. Hepatic steatosis. Sigmoid diverticulosis without acute diverticulitis. Focal prostate nodule. Correlate with PSA values. RECOMMENDATIONS: Fleischner Society guidelines for follow-up and management of incidentally detected pulmonary nodules: Single Solid Nodule: Nodule size less than 6 mm In a low-risk patient, no routine follow-up. In a high-risk patient, optional CT at 12 months. - Low risk patients include individuals with minimal or absent history of smoking and other known risk factors. - High risk patients include individuals with a history or smoking or known risk factors. Radiology 2017 http://pubs.rsna.org/doi/full/10.1148/radiol.[email or web address] D/ / 04/10/2018 11:29:29 Shaw Betts MD / michael Interpreting Provider: Shaw Betts MD Head CT 04/10/18 10:13 IMPRESSION: No acute intracranial abnormality. 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 D/ / 04/10/2018 11:17:22 Shaw Betts MD / michael Interpreting Provider: Shaw Betts MD - EKG Data EKG #1 EKG attestation: Yes I reviewed and interpreted this EKG. EKG results narrative: EKG done at 9:24 shows sinus rhythm at a rate of 57 bpm. Normal axis. Intervals within normal limits. No signs of ST elevation, ST depression or Q waves present. Patient does have a right bundle branch block. This is unchanged when looking at old EKG done on 01/06/2018. Attestation Statement - Attestation Attestation: I, Chinedu Waters DO, examined this patient [id number] and my medical decision-making was reviewed with Dr. Mamadou Cisse, Resident Physician. I agree with the documented findings, disposition and treatment plan as described except to the extent set forth below. Please see my progress notes for details.
[2018-04-10 09:58] LABS: Basophils # 0.1 K/mcL (0.0-0.2); Basophils % 0.6 %; Eosinophils # 0.1 K/mcL (0.0-0.6); Eosinophils % 1.3 %; Hemoglobin 13.7 g/dL (12.9-16.9); Immature Granulocytes % 0.5 % (0-4); Lymphocytes # 1.3 K/mcL (0.6-4.6); Lymphocytes % 15.4 %; Mean Corpuscular HGB Conc 33.4 g/dL (31.6-35.5); Mean Corpuscular Hemoglobin 31.7 pg (28.0-33.3); Mean Corpuscular Volume 94.9 fL (83.0-100.0); Mean Platelet Volume 10.5 fL (9.4-12.4); Monocytes # 0.7 K/mcL (0.0-1.3); Monocytes % 8.7 %; Neutrophils # 6.3 K/mcL (1.6-8.9); Platelet Count 209 K/mcL (140-400); Red Blood Count 4.32 M/mcL (4.19-5.50); Red Cell Distribution Width 12.5 % (11.5-14.5); Segmented Neutrophils % 73.5 %
[2018-04-10] MEDS ORDERED: *HR* Morphine 2 MG/ML SYRINGE IVP ONE (10:03)
[2018-04-10 10:11] LABS: BUN/Creatinine Ratio 18 (6-26); Blood Urea Nitrogen 21 mg/dL (8-23); Calcium 9.2 mg/dL (8.6-10.3); Carbon Dioxide 27 mEq/L (23-29); Chloride 104 mEq/L (98-107); Glucose 186 mg/dL (70-105); Osmolality,Calculated 290 (280-300); Potassium 4.3 mEq/L (3.5-5.1); Sodium 136 mEq/L (136-145); eGFR For Non-African Americans 58 (> 60)
[2018-04-10 10:12] LABS: Troponin I < 0.03 ng/mL (< 0.04)
[2018-04-10] MEDS ORDERED: Isovue-370 500 ML INFUS..BTL IV ONE (10:12)
[2018-04-10] MEDS ORDERED: 0.9 % Sodium Chloride 500 ML IVC ONE (10:12)
--- NOTE | 2018-04-10 10:55 | Emergency Department Note ---
Disposition Clinical Impression: Pulmonary nodule, History of prostate cancer, Hx of factor V Leiden mutation Chest pain Qualifiers: Chest pain type: unspecified Qualified Code(s): R07.9 - Chest pain, unspecified Disposition: Admitted As Inpatient Condition: Good Referrals: Giovanni Morrow MD [Primary Care Provider] - Forms: ED Satisfaction Letter Time of Disposition: 11:53 General Adult HPI - General Chief complaint: ED Chest Pain Stated complaint: Chest heaviness Time Seen by Provider: 04/10/18 09:13 Source: patient Mode of arrival: ambulatory Limitations: no limitations - History of Present Illness Pain Scale: 5 - Related Data Home Medications Medication Instructions Recorded Confirmed Losartan Potassium [Cozaar] 50 mg PO DAILY 06/05/17 04/10/18 Simvastatin [Zocor] 20 mg PO HS 06/05/17 04/10/18 Timolol [Betimol] 1 drop BOTH EYES DAILY 04/10/18 04/10/18 Tizanidine HCl [Zanaflex] 2 mg PO DAILY PRN 04/10/18 04/10/18 Warfarin Sodium [Warfarin Sodium] 1.25 mg PO SUTUWEFRSA 04/10/18 04/10/18 Warfarin Sodium [Warfarin Sodium] 2.5 mg PO MOTH 04/10/18 04/10/18 Allergies Allergy/AdvReac Type Severity Reaction Status Date / Time No Known Allergies Allergy Verified 04/10/18 11:08 Constitutional: Denies: fever, chills Cardiovascular: Reports: chest pain, dyspnea on exertion (chronic). Denies: palpitations, edema Respiratory: Reports: dyspnea. Denies: cough, wheezes, hemoptysis Gastrointestinal: Reports: abdominal pain. Denies: nausea, vomiting, diarrhea Genitourinary: Denies: urgency, dysuria Musculoskeletal: Denies: back pain, neck pain Integumentary: Denies: rash Neurological: Denies: headache, weakness Past Medical History - Past Medical History Medical history: Reports: cancer, DVT, hypertension Surgical history: Reports: herniorrhaphy Psychiatric history: Reports: no psych history - Social History Smoking Status: Never smoker Smokeless Tobacco Status: No Alcohol use: Reports: none Drug use: Reports: none Physical Exam - General Limitations: no limitations General appearance: alert, in no apparent distress Course Vital Signs Temperature 98.5 F 04/10/18 09:26 Pulse Rate 62 04/10/18 09:26 Respiratory Rate 16 04/10/18 09:26 Blood Pressure 135/77 04/10/18 09:26 O2 Sat by Pulse Oximetry 95 04/10/18 09:26 Temperature 98.5 F 04/10/18 09:26 Pulse Rate 56 04/10/18 11:00 Respiratory Rate 16 04/10/18 11:00 Blood Pressure 137/74 04/10/18 11:00 O2 Sat by Pulse Oximetry 96 04/10/18 11:00 Oxygen Delivery Oxygen Delivery Room Air Medical Decision Making - Lab Data Result diagrams: 04/10/18 09:35 04/10/18 09:35 Lab Results 04/10/18 04/10/18 04/10/18 Range/Units 09:32 09:35 09:35 WBC 8.6 (4.3-11.1) K/mcL RBC 4.32 (4.19-5.50) M/mcL Hgb 13.7 (12.9-16.9) g/dL Hct 41.0 (37.5-50.1) % MCV 94.9 (83.0-100.0) fL MCH 31.7 (28.0-33.3) pg MCHC 33.4 (31.6-35.5) g/dL RDW 12.5 (11.5-14.5) % Plt Count 209 (140-400) K/mcL MPV 10.5 (9.4-12.4) fL Immature Gran % 0.5 (0-4) % Seg Neutrophils % 73.5 % Lymphocytes % 15.4 % Monocytes % 8.7 % Eosinophils % 1.3 % Basophils % 0.6 % Neutrophils # 6.3 (1.6-8.9) K/mcL Lymphocytes # 1.3 (0.6-4.6) K/mcL Monocytes # 0.7 (0.0-1.3) K/mcL Eosinophils # 0.1 (0.0-0.6) K/mcL Basophils # 0.1 (0.0-0.2) K/mcL Sodium 136 (136-145) mEq/L Potassium 4.3 (3.5-5.1) mEq/L Chloride 104 (98-107) mEq/L Carbon Dioxide 27 (23-29) mEq/L BUN 21 (8-23) mg/dL Creatinine 1.19 (0.70-1.30) mg/dL Est GFR ( Amer) > 60 (> 60) Est GFR (Non-Af Amer) 58 L (> 60) BUN/Creatinine Ratio 18 (6-26) Glucose 186 H (70-105) mg/dL Calculated Osmolality 290 (280-300) Calcium 9.2 (8.6-10.3) mg/dL Troponin I < 0.03 (< 0.04) ng/mL B-Natriuretic Peptide 24 (Less than 100) pg/mL Attestation Statement - Attestation Attestation: I, Chinedu Waters DO, examined this patient [id number] and my medical decision-making was reviewed with Dr. Mamadou Cisse, Resident Physician. I agree with the documented findings, disposition and treatment plan as described except to the extent set forth below. Please see my progress notes for details. 87-year-old male presents emergency room with several days of progressively worsening shortness of breath and weakness and generalized malaise. Patient was describing chest discomfort and heaviness that started within the last 24 hours. He does not have any specific history of cardiac related coronary artery disease but he does have a history of blood clots in his lower extremities with a filter in place as well as being on blood thinners. Denies any nausea vomiting or diarrhea. Denies any fevers or chills. Denies any specific complaints of chest pain but he does have heaviness. He also describes exertional shortness of breath. On physical exam the patient's vital signs are stable he is alert he is oriented he speaks in full sentences. He has no signs of chest wall injury or trauma. His lungs are clear to auscultation his heart appears to be regular. Abdomen is soft but he does have tenderness diffusely across the abdominal wall. He denies any trauma or injury to the abdomen at this point please had these symptoms on and off for several days. He has a history of intra-abdominal issues but he cannot remember directly with they are. He has not had any recent surgeries. Patient does have prostate related pathology as well but has been having normal urination at home. He said decreased stool over the last several days as well. Patient has multiple complaints on presentation as well as a concerning history for blood clots and pulmonary emboli. Patient will have chest x-ray CBC chemistry labs including the coagulation studies liver function testing lipase and urinalysis. CT imaging of the chest and abdomen will also be ordered. Fluids and nitroglycerin and aspirin will be given. Patient will most likely require admission with concern for pulmonary emboli, exertional dyspnea, chest discomfort and pressure. We will continue to monitor here and treat symptoms as the treatment course is established and completed. Patient is otherwise stable but has concerning presentation. See detailed documentation of the physical exam, medical intervention, medical decision-making and disposition in the resident physician's note. No critical care applied to the patient's treatment course at this time. Patient has no specific history of dissection or aneurysm and himself or his family members. CT angiography the chest as well as CT the abdomen have been ordered at this time. 1045 Chest x-ray is concerning for aortic arch abnormality. Recommendation for CT angiogram looking for aneurysm was discussed. This is artery been ordered. Fluids pain medication and nitroglycerin have been provided. Repeat evaluation will be completed this time disposition will be determined. Patient was provided with morphine instead of nitroglycerin secondary to his blood pressure being 1:30 originally. There is concern for pressure dropping too low. Because of the aneurysm concern we will monitor his blood pressure closely and augment as necessary. [address] angiography the chest and abdomen. There is potential for remote right lower lobe pulmonary infarct but does not appear to be acute at this time. Patient has no other signs of right ventricular strain or other etiology. Patient will be admitted for chest pain symptoms. Morphine appears to result chest pain at this time. He does not require any other aggressive medical intervention or symptomatic control this time but will be admitted for cardiac evaluation treatment course. Patient was discussed with the hospitalist Dr. Leigh and no other concerns or issues were noted. Patient is otherwise clinically stable to time of admission. Patient's symptoms have been present for approximately 72 hours or more and did not show any acute pathology on the EKG at this time.
[2018-04-10] MEDS ORDERED: Nitroglycerin 0.4 MG TAB.SUBL SL PRN (11:16)
[2018-04-10] MEDS ORDERED: Nitroglycerin 25 MG/250 ML INFUS..BTL IVC SCH (12:00)
[2018-04-10 12:41] LABS: INR 2.2; Prothrombin Time 24.5 Seconds (9.4-12.1)
[2018-04-10 12:43] LABS: Activated Partial Thrombo Time 41.7 Seconds (26.0-36.0)
--- NOTE | 2018-04-10 13:28 | Electrocardiograph Report ---
[place] [facility] Test Date: 2018-04-10 Pat Name: Deshaun Akbar Department: EXAM3 Room: 3B64 Gender: M [facility] Sales Consultant: : [id number] Requested By: Mamadou Cisse Order Number: [id number] Reading MD: Ancelmo Correa Measurements Intervals [place] Rate: 57 P: 34 MA: 171 QRS: 100 QRSD: 152 T: 55 QT: 457 QTc: 445 Interpretive Statements Sinus rhythm Right bundle branch block Electronically Signed On 04-10-2018 13:27:12 EDT by Ancelmo Correa
[2018-04-10] MEDS ORDERED: tiZANidine 4 MG TABLET PO PRN (14:53)
[2018-04-10] MEDS ORDERED: *HR* HYDROcodone/Acet 5/325 mg TABLET PO PRN (14:57)
[2018-04-10] MEDS ORDERED: Naloxone 0.4 MG/ML INJ IVP PRN (14:57)
[2018-04-10] MEDS ORDERED: Acetaminophen 325 MG TABLET PO PRN (14:57)
--- NOTE | 2018-04-10 16:01 | Internal Med History&Physical ---
<NickiAncelmo Dyer - Last Filed: 04/10/18 16:29> Date of Encounter: 04/10/18 Time of Encounter: 14:30 Internal Medicine - H&P: HPI Chief complaint: CP Admitted From: Emergency Dept Plans for Post Hospital Care: Home History of present illness: Mr. Akbar is a 87 year old male w/PMH of prostate cancer w/seed therapy, pulmonary nodule, Factor V Leiden mutation, hx of DVTs w/filter placed in 2007 (MRI compatible not exceeding 1.5 [place]) and on Coumadin, HLD, and HTN presents from the ED with CC of chest pain that began on Tuesday. Patient reports he could not see his physician until and had testing done which was basically unremarkable. Patient describes pain as pressure across his chest that is intermittent and radiates to his neck and shoulder blades. No alleviating or aggravating factors. Associated symptoms: Nausea and shortness of breath. Denies vomiting or diaphoresis. Pt. reports he was cold this morning and could not get warm. Pt. states he uses @L @ night via NC. Pt. denies recent illness, fever, chills, vomiting, headache, changes in vision, unusual bleeding, cough, chest congestion, abdominal pain, diarrhea, constipation, dizziness, lightheadedness, numbness, tingling, pre-syncope, or syncope. Past Med Surg Social Fam HX - Past Medical History Source: patient, old records reviewed, obtained from family Medical history: cancer (Prostate w/seed therapy), DVT, hyperlipidemia, hypertension, pulmonary embolus Additional medical history: prostate cancer Psychiatric history: no psych history - Past Surgical History Surgical History: cataract, herniorrhaphy, IVC Filter Additional surgical history: Radiation seeds (118) 2009 - Social History Smoking Status: Never smoker Smokeless Tobacco Status: No Alcohol use: none Drug use: none Current living situation: Home, With Family Activity Level: Independent ambulation Recent Out of Country Travel Within the Last 8 Weeks: No Exposure or Possible Exposure to Illness During Travel: No - Family History Son Race: Family Member Ethnicity: Non- Living Status: Still Living Hx Family Cardiac Disorders: Yes (son had 5 stents placed) Father Race: Family Member Ethnicity: Non- Living Status: Age at : 86 Cause of : Complications from hip fx Hx Family Cardiac Disorders: Yes (CVA) Mother Race: Family Member Ethnicity: Non- Living Status: Age at : 74 Cause of : [place] Hx Family Cardiac Disorders: Yes (CAD, HTN) Hx Family Endocrine Disorder: Yes (DM) Brother Race: Family Member Ethnicity: Non- Living Status: Age at : 82 Cause of : [place] Hx Family Cardiac Disorders: Yes (RI, HTN, CAD) Sister Race: Family Member Ethnicity: Non- Living Status: Still Living Hx Family Cardiac Disorders: Yes (CVA x3) Hx Family Neurologic Disorders: Yes (CVA) Internal Medicine - H&P: Meds Losartan Potassium [Cozaar] 50 mg PO DAILY 06/05/17 [History] Simvastatin [Zocor] 20 mg PO HS 06/05/17 [History] Timolol [Betimol] 1 drop BOTH EYES DAILY 04/10/18 [History] Tizanidine HCl [Zanaflex] 2 mg PO DAILY PRN 04/10/18 [History] Warfarin Sodium [Warfarin Sodium] 1.25 mg PO SUTUWEFRSA 04/10/18 [History] Warfarin Sodium [Warfarin Sodium] 2.5 mg PO MOTH 04/10/18 [History] 3 Allergy/AdvReac Type Severity Reaction Status Date / Time No Known Allergies Allergy Verified 04/10/18 11:08 All Systems PM: A 10-system review of systems was performed and is negative for pertinent findings except as documented above in the HPI. - Constitutional Constitutional: as per HPI, no chills, no fever(s), no night sweats - EENT Eyes: no change in vision, no discharge, no pain, no photophobia Ears: no ear discharge, no ear pain, no tinnitus Nose, mouth and throat: no dysphagia, no nasal discharge, no neck pain, no sore throat - Breasts Breasts: as per HPI - Cardiovascular Cardiovascular ROS IM: as per HPI, chest pain, dyspnea, dyspnea on exertion, no diaphoresis, no lightheadedness, no palpitations, no syncope - Respiratory Respiratory: as per HPI, dyspnea, dyspnea on exertion, no cough, no wheezing, no excessive phlegm production - Gastrointestinal Gastrointestinal: as per HPI, nausea, no abdominal pain, no diarrhea, no hematemesis, no hematochezia, no melena, no vomiting - Genitourinary Genitourinary ROS male: as per HPI - Musculoskeletal Musculoskeletal ROS IM: no numbness, no tingling - Integumentary Integumentary IM: no rash, no unusual bruising - Neurological Neurological ROS: no confusion, no convulsions, no focal weakness, no numbness, no tingling, no tremor(s) - Psychiatric Psychiatric: as per HPI - Endocrine Endocrine IM: as per HPI - Hematologic/Lymphatic Hematologic/Lymphatic: no easy bruising - Allergic/Immunologic Allergic/Immunologic: as per HPI - Constitutional Vitals: Temp Pulse Resp BP Pulse Ox 97.8 F 56 15 126/67 96 04/10/18 13:46 04/10/18 13:46 04/10/18 13:46 04/10/18 13:46 04/10/18 13:46 General appearance: Present: cooperative, A&O X 3, pleasant, no acute distress, answers questions appropriately Exam: Pt. examined at bedside. Pt. denies CP during exam. Nitro drip started in ED. Pt. reports SOB and nausea but denies any other sx or complaints at this time. VS: 97.8F temp, HR 56, RR 15, BP 126/67, SpO2 96% on RA. Plan for ACS r/o discussed w/pt. and family who expressed understanding and agreement. - Head Head exam: Present: atraumatic, normocephalic - Eye Eye exam: Present: PERRL, conjuntiva pink, sclera anicteric Pupils: Present: PERRL - ENT ENT exam: Present: normal exam - Neck Neck exam general surgery: Present: normal inspection, supple, trachea midline. Absent: lymphadenopathy - Respiratory Respiratory exam: Present: CTAB. Absent: accessory muscle use, rales, rhonchi, wheezes - Cardiovascular Cardiovascular exam: Present: RRR, +S1, +S2. Absent: diastolic murmur, gallop, rubs, systolic murmur - GI/Abdominal GI/Abdominal exam: Present: normal bowel sounds, soft, no peritoneal signs. Absent: distended, tenderness - Rectal Rectal exam: Present: deferred - Additional comments: exam deferred. - Extremities Exam Extremities exam: Present: warm, radial pulses palpable and symmetrical. Absent : calf tenderness, cyanotic, pedal edema - Back Exam Back exam: Present: normal inspection - Neurological Exam Neurological exam: Present: alert, CN II-XII intact, oriented X3, no focal deficits. Absent: pronater drift, facial droop, speech deficit - Psychiatric Psychiatric exam: Present: normal affect, normal mood - Skin Skin exam: Present: dry, intact Internal Med - H&P Results - Labs CBC & Chem 7: 04/10/18 09:35 04/10/18 09:35 - Diagnostic Studies CT scan - head Additional comments: Impressions Head CT 04/10/18 10:13 IMPRESSION: No acute intracranial abnormality. 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 D/ / 04/10/2018 11:17:22 Shaw Betts MD / michael Interpreting Provider: Shaw Betts MD Chest x-ray Additional comments: Impressions Chest X-Ray 04/10/18 09:14 IMPRESSION: No acute abnormalities are identified. Stable prominence of aortic arch which could relate to ectasia/aneurysm. If there is clinical concern for acute aortic pathology, consider CTA evaluation. D/ / 04/10/2018 10:00:11 Balbir Kang MD / aquiles Interpreting Provider: Balbir Kang MD CT scan - abdomen Additional comments: Impressions Abdomen/Pelvis CT 04/10/18 10:13 IMPRESSION: No acute central or segmental pulmonary embolus. Linear filling defect within a right lower lobe pulmonary artery branch is more suggestive of a remote/chronic nonocclusive pulmonary embolus. No acute pulmonary process. 4 mm left lower lobe nodule. Hepatic steatosis. Sigmoid diverticulosis without acute diverticulitis. Focal prostate nodule. Correlate with PSA values. RECOMMENDATIONS: Fleischner Society guidelines for follow-up and management of incidentally detected pulmonary nodules: Single Solid Nodule: Nodule size less than 6 mm In a low-risk patient, no routine follow-up. In a high-risk patient, optional CT at 12 months. - Low risk patients include individuals with minimal or absent history of smoking and other known risk factors. - High risk patients include individuals with a history or smoking or known risk factors. Radiology 2017 http://pubs.rsna.org/doi/full/10.1148/radiol.5143651949 D/ : / 04/10/2018 11:29:29 Shaw Betts MD / michael Interpreting Provider: Shaw Betts MD CT scan - chest Additional comments: Impressions Chest CTA 04/10/18 10:13 IMPRESSION: No acute central or segmental pulmonary embolus. Linear filling defect within a right lower lobe pulmonary artery branch is more suggestive of a remote/chronic nonocclusive pulmonary embolus. No acute pulmonary process. 4 mm left lower lobe nodule. Hepatic steatosis. Sigmoid diverticulosis without acute diverticulitis. Focal prostate nodule. Correlate with PSA values. RECOMMENDATIONS: Fleischner Society guidelines for follow-up and management of incidentally detected pulmonary nodules: Single Solid Nodule: Nodule size less than 6 mm In a low-risk patient, no routine follow-up. In a high-risk patient, optional CT at 12 months. - Low risk patients include individuals with minimal or absent history of smoking and other known risk factors. - High risk patients include individuals with a history or smoking or known risk factors. Radiology 2017 http://pubs.rsna.org/doi/full/10.1148/radiol.[email or web address] D/ /10/2018 11:29:29 Shaw Betts MD / michael Interpreting Provider: Shaw Betts MD - Assessment and plan (1) Chest pain Current Visit: Yes Status: Acute Assessment and plan: Acute CP that pt. reports began on Tuesday. Patient reports he could not see his physician until and had testing done which was basically unremarkable. Patient describes pain as pressure across his chest that is intermittent and radiates to his neck and shoulder blades. No alleviating or aggravating factors. Associated symptoms: Nausea and shortness of breath. Denies vomiting or diaphoresis. Initial troponin <0.03. Will trend. No recent cardiac w/u. Continuous cardiac telemetry. Echocardiogram. NPO @ midnight for a.m. nuclear pharm stress test if troponins remain WNL. Lipitor 80 mg NOW. Nitro drip started in ED. CTA of chest negative for PE. Continue pts. Coumadin w /Pharmacy dosing for now. Will convert to heparin drip if troponins begin to elevate. Falls/safety precautions and up with assist. Consider adding Cardiology consult if troponins, Echocardiogram, and/or stress test results abnormal. Pt. discussed w/Dr. Leigh who agrees w/plan of care. Pt. is high risk for cardiac event and further morbidity d/t current CP sx for the past several days, hx of DVT/PE/Factor V Leiden mutation; and risk factors of HTN, HLD, and borderline DM. Observation. Qualifiers: Chest pain type: unspecified Qualified Code(s): R07.9 - Chest pain, unspecified (2) Nausea Current Visit: Yes Status: Acute Assessment and plan: Acute nausea accompanying CP sx. IVP Zofran 4 mg Q6HR PRN for N/V. (3) SOB (shortness of breath) Current Visit: Yes Status: Acute Assessment and plan: Acute SOB accompanying CP sx. Reports using 2L O2 @ night via NC. Supplemental O2 w/titration and SpO2 monitoring. Falls/safety precautions and up with assist. (4) KRYSTEN (acute kidney injury) Current Visit: Yes Status: Acute Assessment and plan: KRYSTEN on admission w/GFR of 58. Hx of CKD dating back to 2017. Will use IV fluids judiciously and avoid nephrotoxins. Monitor I&O and daily weight. (5) Hx of deep venous thrombosis Current Visit: Yes Status: Chronic Assessment and plan: Hx of DVT. CTA negative for PE. Bilateral Dopplers of LEs ordered d/t report of recent DVT. Continue pts. Coumadin w/Pharmacy dosing. (6) Hx of factor V Leiden mutation Current Visit: Yes Status: Chronic Assessment and plan: Hx of chronic Factor V Leiden mutation. Continue pts. Coumadin w/Pharmacy dosing. CTA negative for PE. Bilateral Dopplers of LEs ordered. (7) HLD (hyperlipidemia) Current Visit: Yes Status: Chronic Assessment and plan: Hx of chronic HLD. Lipid panel in a.m. labs. Continue patient's Zocor. Qualifiers: Hyperlipidemia type: pure hypercholesterolemia Qualified Code(s): E78.00 - Pure hypercholesterolemia, unspecified; E78.0 - Pure hypercholesterolemia (8) HTN (hypertension) Current Visit: Yes Status: Chronic Assessment and plan: Hx of of chronic HTN. Monitor pt. and VS. Continue pts. Cozaar. Qualifiers: Hypertension type: essential hypertension Qualified Code(s): I10 - Essential (primary) hypertension (9) History of prostate cancer Current Visit: Yes Status: Chronic Assessment and plan: Hx of prostate cancer. Pt. reports being treated w/seed therapy. (10) DVT prophylaxis Current Visit: Yes Status: Acute Assessment and plan: Continue patient's Coumadin with pharmacy dosing for DVT prophylaxis. Monitor patient for signs of bleeding. (11) Hyperglycemia Current Visit: Yes Status: Acute Assessment and plan: Acute hyperglycemia w/BG of 186 on admission. Pt. reports he is borderline diabetic but does not use oral meds or insulin. Monitor. - Time Spent With Patient Total time spent is greater than 50% in coordination of care (as documented) at patient's floor/unit and/or counseling patient: Greater than 35 minutes <Chely Leigh - Last Filed: 04/11/18 13:48> Date of Encounter: 04/11/18 Internal Medicine - H&P: HPI History of present illness: Mr. Akbar is a 87 year old male All Systems PM: A 10-system review of systems was performed and is negative for pertinent findings except as documented above in the HPI. - Constitutional Vitals: Temp Pulse Resp BP Pulse Ox 98.1 F 54 15 136/71 96 04/11/18 06:41 04/11/18 06:41 04/11/18 06:41 04/11/18 06:41 04/11/18 06:41 Internal Med - H&P Results - Labs CBC & Chem 7: 04/11/18 07:16 04/11/18 07:16 Labs: Short CBC 04/11/18 Range/Units 07:16 WBC 7.3 (4.3-11.1) K/mcL Hgb 13.6 (12.9-16.9) g/dL Hct 41.5 (37.5-50.1) % Plt Count 188 (140-400) K/mcL Neutrophils # 4.9 (1.6-8.9) K/mcL BMP 04/11/18 07:16 Sodium 139 Potassium 4.2 Chloride 107 Carbon Dioxide 26 BUN 20 Creatinine 1.09 Glucose 165 H Calcium 9.1 Cardiac Enzymes 04/10/18 04/10/18 Range/Units 15:31 22:55 Troponin I < 0.03 < 0.03 (< 0.04) ng/mL Liver Function 04/11/18 Range/Units 07:16 Total Bilirubin 0.5 (0.3-1.0) mg/dL AST 18 (13-39) Units/L ALT 19 (7-52) Units/L Alkaline Phosphatase 49 (34-104) Units/L Albumin 3.8 (3.5-5.7) g/dL Urine 04/10/18 Range/Units 16:05 Urine Color Yellow (Yellow) Urine Clarity Clear (Clear) Urine pH 6.5 (5.0-8.0) pH Units Ur Specific Leslie > 1.030 H (1.010-1.025) Urine Protein Negative (Neg-Trace) mg/dL Urine Glucose (UA) Normal (Normal) mg/dL - Impressions ITS Impressions Echocardiogram 04/10/18 14:57 Impressions: LVEF 55%. Mild left ventricular diastolic dysfunction. Normal right ventricular structure and function. Mild tricuspid regurgitation. No pulmonary hypertension. Mildly dilated proximal ascending thoracic aorta, 3.8 cm. Left Ventricular Wall Motion: Rest Echo Findings All wall segments showed normal motion. Findings: Study Quality * Technically adequate exam. ECG Findings * Normal sinus rhythm. Left Ventricle * LVEF 55%. * Mild left ventricular diastolic dysfunction. * Normal LV chamber size and wall thickness. Right Ventricle * Normal right ventricular structure and function. Left Atrium * Left atrial size is not optimally visualized. Right Atrium * Right atrium is not well visualized. Aortic Valve * No aortic regurgitation. * Trileaflet aortic valve. * No aortic stenosis. Mitral Valve * No mitral regurgitation. * Normal mitral valve structure. * No mitral stenosis. Tricuspid Valve * Tricuspid valve not well visualized. * Mild tricuspid regurgitation. * Estimated RA pressure is 3 mmHg. * Estimated RVSP is 28 mmHg. * No pulmonary hypertension. Pulmonic Valve * Pulmonic valve is not well visualized. * No pulmonic stenosis. * No pulmonic regurgitation. Pulmonary Artery * Pulmonary artery not well visualized. Aorta * Normally sized aortic root. * Mildly dilated proximal ascending thoracic aorta, 3.8 cm. Pericardium * There is no pericardial effusion present. Interatrial Septum * No evidence of PFO by color Doppler. IVC * Normal IVC dimensions and inspiratory collapse. - Assessment and plan (1) DVT prophylaxis Current Visit: Yes Status: Acute (2) HTN (hypertension) Current Visit: Yes Status: Chronic Qualifiers: Hypertension type: essential hypertension Qualified Code(s): I10 - Essential (primary) hypertension (3) HLD (hyperlipidemia) Current Visit: Yes Status: Chronic Qualifiers: Hyperlipidemia type: pure hypercholesterolemia Qualified Code(s): E78.00 - Pure hypercholesterolemia, unspecified; E78.0 - Pure hypercholesterolemia (4) Chest pain Current Visit: Yes Status: Acute Qualifiers: Chest pain type: unspecified Qualified Code(s): R07.9 - Chest pain, unspecified (5) History of prostate cancer Current Visit: Yes Status: Chronic (6) Hx of factor V Leiden mutation Current Visit: Yes Status: Chronic (7) Nausea Current Visit: Yes Status: Acute (8) SOB (shortness of breath) Current Visit: Yes Status: Acute (9) Hx of deep venous thrombosis Current Visit: Yes Status: Chronic (10) KRYSTEN (acute kidney injury) Current Visit: Yes Status: Acute (11) Hyperglycemia Current Visit: Yes Status: Acute - Time Spent With Patient Total time spent is greater than 50% in coordination of care (as documented) at patient's floor/unit and/or counseling patient: - Attending Attestation Seen and assessed. Continue management for chest pain. Agree with plan per SPLICER OPERATOR
[2018-04-10] MEDS ORDERED: Ondansetron 4 MG/2 ML VIAL IVP PRN (16:19)
[2018-04-10 16:24] LABS: Bilirubin,Urine Negative (Negative); Blood,Urine Negative (Negative); Clarity,Urine Clear (Clear); Color,Urine Yellow (Yellow); Glucose,Urine (UA) Normal (Normal); Ketones,Urine Negative (Negative); Leukocyte Esterase,Urine Negative (Negative); Nitrite,Urine Negative (Negative); PH,Urine 6.5 pH Units (5.0-8.0); Protein,Urine Negative (Neg-Trace); Specific Gravity,Urine > 1.030 (1.010-1.025); Urobilinogen,Urine Normal (Normal)
[2018-04-10] MEDS ORDERED: *HR* Warfarin 2.5 MG TABLET PO ONE ×2 (18:00→23:30)
[2018-04-10] MEDS ORDERED: Warfarin perPT PO PRN (18:00)
[2018-04-10 18:20] LABS: Adenovirus Not Detected (Not Detect); Bordetella Pertussis Not Detected (Not Detect); Chlamydophila pneumoniae Not Detected (Not Detect); Coronavirus 229E Not Detected (Not Detect); Coronavirus HKU1 Not Detected (Not Detect); Coronavirus NL63 Not Detected (Not Detect); Coronavirus OC43 Not Detected (Not Detect); Human Metapneumovirus Not Detected (Not Detect); Human Rhinovirus/Enterovirus Not Detected (Not Detect); Influenza A Subtype 2009 H1 Not Detected (Not Detect); Influenza A Untypeable Not Detected (Not Detect); Influenza B Not Detected (Not Detect); Mycoplasma pneumoniae Not Detected (Not Detect); Parainfluenza Virus 1 Not Detected (Not Detect); Parainfluenza Virus 2 Not Detected (Not Detect); Parainfluenza Virus 3 Not Detected (Not Detect); Parainfluenza Virus 4 Not Detected (Not Detect); Respiratory Syncytial Virus Not Detected (Not Detect)
[2018-04-10] MEDS ORDERED: Dextrose Gel 15 GM/37.5 ML TUBE PO PRN ×2 (20:32)
[2018-04-10] MEDS ORDERED: *HR* Dextrose 50 % in Water (Syg) 50 ML SYRINGE IVP PRN (20:32)
[2018-04-10] MEDS ORDERED: D5% in Water 1,000 ML IVC PRN (20:32)
--- NOTE | 2018-04-10 22:31 | Event Note ---
Date of Encounter: 04/10/18 Time of Encounter: 21:18 Alerted by Cardio Venous Doppler that pt. 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 Pt. has hx of DVTs and PEs as well as hx of Factor V Leiden mutation. Pt. is on daily Coumadin. Pt. admitted w/CP and plan was to hold Coumadin tonight and re-check INR at 04:00 to see if INR <2.0 in order to transition to heparin drip if needed for increasing troponins and/or possible heart cath if needed. Three troponins <0.03. Cardiology consult ordered and discussed w/Dr. Cole d/t concern for DVTs in LEs, continuation of Coumadin versus heparin, and appropriateness of nuclear stress test w/presence of DVTs in LEs. Recommendation to resume Coumadin tonight, keep pt. NPO @ midnight, and pt. will be evaluated in a.m. pertaining to stress test. I appreciate the consult and recommendations as always. Order to resume Coumadin w/Pharmacy dosing placed and 2.5 mg to be given tonight per Bin in Pharmacy. Pt. to be monitored closely.
[2018-04-10] MEDS: Insulin LISPRO 300 UNITS/3 ML VIAL SQ SCH (23:40)
[2018-04-11 07:32] LABS: Basophils # 0.1 K/mcL (0.0-0.2); Basophils % 0.7 %; Eosinophils # 0.2 K/mcL (0.0-0.6); Eosinophils % 2.9 %; Hematocrit 41.5 % (37.5-50.1); Hemoglobin 13.6 g/dL (12.9-16.9); Immature Granulocytes % 0.5 % (0-4); Lymphocytes # 1.4 K/mcL (0.6-4.6); Lymphocytes % 18.9 %; Mean Corpuscular HGB Conc 32.8 g/dL (31.6-35.5); Mean Corpuscular Hemoglobin 31.9 pg (28.0-33.3); Mean Corpuscular Volume 97.4 fL (83.0-100.0); Mean Platelet Volume 10.5 fL (9.4-12.4); Monocytes # 0.7 K/mcL (0.0-1.3); Monocytes % 9.9 %; Neutrophils # 4.9 K/mcL (1.6-8.9); Platelet Count 188 K/mcL (140-400); Red Blood Count 4.26 M/mcL (4.19-5.50); Red Cell Distribution Width 12.5 % (11.5-14.5); Segmented Neutrophils % 67.1 %
[2018-04-11 07:33] LABS: Estimated Average Glucose 200 mg/dl; Hemoglobin A1C 8.6 %
[2018-04-11 07:38] LABS: INR 1.9; Prothrombin Time 21.6 Seconds (9.4-12.1)
[2018-04-11 07:50] LABS: Alanine Aminotransferase 19 Units/L (7-52); Albumin 3.8 g/dL (3.5-5.7); Albumin/Globulin Ratio 1.3 (1.1-2.2); Alkaline Phosphatase 49 Units/L (34-104); Aspartate Amino Transferase 18 Units/L (13-39); BUN/Creatinine Ratio 18 (6-26); Bilirubin,Total 0.5 mg/dL (0.3-1.0); Blood Urea Nitrogen 20 mg/dL (8-23); Calcium 9.1 mg/dL (8.6-10.3); Carbon Dioxide 26 mEq/L (23-29); Chloride 107 mEq/L (98-107); Chol/HDL Ratio 4.7 (0-4.9); Cholesterol 132 mg/dL (< 200); Globulin 2.9 g/dL (2.4-3.5); Glucose 165 mg/dL (70-105); HDL Cholesterol 28 mg/dL (40-59); LDL Cholesterol,Calculated 69 mg/dL (0-99); Magnesium 2.2 mg/dL (1.6-2.6); Osmolality,Calculated 294 (280-300); Potassium 4.2 mEq/L (3.5-5.1); Sodium 139 mEq/L (136-145); Total Protein 6.7 g/dL (6.4-8.9); Triglycerides 177 mg/dL (< 150); eGFR For Non-African Americans > 60 (> 60)
[2018-04-11] MEDS: Insulin LISPRO 300 UNITS/3 ML VIAL SQ SCH ×4 (09:39→20:49)
[2018-04-11] MEDS ORDERED: 0.9 % Sodium Chloride 500 ML IVC SCH (09:45)
[2018-04-11] MEDS ORDERED: Regadenoson 0.4 MG/5 ML SYRINGE IVP ONE (12:36)
--- NOTE | 2018-04-11 16:07 | Internal Med Progress Note ---
Hospitalist Progress Note - Encounter Date of Encounter: 04/11/18 Time of Encounter: 09:25 - Subjective Interval History: cont intermittent panfilo pain an pressure, located at right chest and left chest when present. no associated n/v/diaphoresis. no sob, calf pain or swelling at this time. - Exam Vitals: Temp Pulse Resp BP Pulse Ox 98.4 F 61 15 138/74 96 04/11/18 16:03 04/11/18 16:03 04/11/18 16:03 04/11/18 16:03 04/11/18 16:03 Exam: General: awake, alert, appears stated age HEENT:EOM intact, pupils equal, round, moist mucus membranes Cardiovascular:regular rate and rhythm, normal S1 & S2, no rubs, murmurs or gallops. No JVD. radial pulses 2+, no lower extremity edema Lungs:Normal breath sounds, no wheezes, or crackles. Normal respiratory effort Abdomen:Soft, non-tender, non-distended, , + bowel sounds Extremities:equal calf size Neurological: AAOx3 Skin:Normal color, no rash, no pallor, no jaundice - Assessment and Plan (1) Chest pain Current Visit: Yes Status: Acute Assessment and Plan: Atypical Acute CP -that pt. reports began nearly a week ago. - Initial troponin <0.03. neg x3 -ekg in ED withotu acute ischemic changes -CXR no acute findings - CTA of chest negative for acute PE or aneurysm/dissection. 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 Continue pts. Coumadin w/Pharmacy dosing for now. Will convert to heparin drip if troponins begin to elevate. -Echocardiogram EF 55%, mild diastolic dysfunction, mildly dilated thoracic aorta 3.8 cm, no sig valvular disease, no pulm htn -cards consulted and rec for stress test 04/11 -stress test normal with normal EF -will fu further cards recs -Lipitor 80 mg daily started this admit--lipid panel -not on asa at home, start baby asa + statin + cont home arb and prn nitro while awaiting formal cards recs -Nitro drip started in ED, discontinued on admit (2) HTN (hypertension) Current Visit: Yes Status: Chronic Assessment and Plan: Hx of of chronic HTN. Monitor pt. and VS. Continue pts. Cozaar. (3) HLD (hyperlipidemia) Current Visit: Yes Status: Chronic Assessment and Plan: Hx of chronic HLD. Lipid panel with high LDL and low HDL Continue patient's Zocor. (4) History of prostate cancer Current Visit: Yes Status: Chronic Assessment and Plan: Hx of prostate cancer. Pt. reports being treated w/seed therapy. (5) Hx of factor V Leiden mutation Current Visit: Yes Status: Chronic Assessment and Plan: Hx of chronic Factor V Leiden mutation. Continue pts. Coumadin w/Pharmacy dosing. CTA negative for acute PE, + remote RLL PE BL LE US +R superficial fem vein and popliteal vein chronci thrombosis, left great saphenous superficial chronic thrombosis -INR is 1.9 today, therapeutic lovenox dosing to bridge to therapeutic INR -pharmacy dosing coumadin (6) Nausea Current Visit: Yes Status: Resolved Assessment and Plan: Acute nausea accompanying CP sx. IVP Zofran 4 mg Q6HR PRN for N/V. now resolved (7) SOB (shortness of breath) Current Visit: Yes Status: Resolved Assessment and Plan: Acute SOB accompanying CP sx. Now resolved Reports using 2L O2 @ night via NC. Supplemental O2 w/titration and SpO2 monitoring. (8) Hx of deep venous thrombosis Current Visit: Yes Status: Chronic Assessment and Plan: Hx of DVT. CTA negative for acute PE, + for chronic PE. Bilateral Dopplers of LEs + chronic thromboses as above . Continue pts. Coumadin w/Pharmacy dosing. bridge as needed as noted above (9) KRYSTEN (acute kidney injury) Current Visit: Yes Status: Acute Assessment and Plan: KRYSTEN on admission w/GFR of 58. Resolved Hx of CKD dating back to 2017. avoid nephrotoxins. Monitor I&O and daily weight. (10) Hyperglycemia Current Visit: Yes Status: Acute Assessment and Plan: New Diagnosis DM with A1C 8.6 -SSI and accu checks -will require outpt fu (11) DVT prophylaxis Current Visit: Yes Status: Acute Assessment and Plan: Continue patient's Coumadin with pharmacy dosing, see above - Time Spent with Patient Total time spent is greater than 50% in coordination of care (as documented) at patient's floor/unit and/or counseling patient: 25 - 35 minutes Plan of Care Discussed with: patient Internal Medicine: Result - Labs CBC & Chem 7: 04/11/18 07:16 04/11/18 07:16 Labs: Short CBC 04/11/18 Range/Units 07:16 WBC 7.3 (4.3-11.1) K/mcL Hgb 13.6 (12.9-16.9) g/dL Hct 41.5 (37.5-50.1) % Plt Count 188 (140-400) K/mcL Neutrophils # 4.9 (1.6-8.9) K/mcL BMP 04/11/18 07:16 Sodium 139 Potassium 4.2 Chloride 107 Carbon Dioxide 26 BUN 20 Creatinine 1.09 Glucose 165 H Calcium 9.1 Cardiac Enzymes 04/10/18 04/10/18 Range/Units 15:31 22:55 Troponin I < 0.03 < 0.03 (< 0.04) ng/mL Liver Function 04/11/18 Range/Units 07:16 Total Bilirubin 0.5 (0.3-1.0) mg/dL AST 18 (13-39) Units/L ALT 19 (7-52) Units/L Alkaline Phosphatase 49 (34-104) Units/L Albumin 3.8 (3.5-5.7) g/dL Urine 04/10/18 Range/Units 16:05 Urine Color Yellow (Yellow) Urine Clarity Clear (Clear) Urine pH 6.5 (5.0-8.0) pH Units Ur Specific [place] > 1.030 H (1.010-1.025) Urine Protein Negative (Neg-Trace) mg/dL Urine Glucose (UA) Normal (Normal) mg/dL - ABG Interpretation ABG results: PT/INR, D-dimer PT 21.6 Seconds (9.4-12.1) H 04/11/18 07:16 - Impressions Impressions Echocardiogram 04/10/18 14:57 Impressions: LVEF 55%. Mild left ventricular diastolic dysfunction. Normal right ventricular structure and function. Mild tricuspid regurgitation. No pulmonary hypertension. Mildly dilated proximal ascending thoracic aorta, 3.8 cm. Left Ventricular Wall Motion: Rest Echo Findings All wall segments showed normal motion. Findings: Study Quality * Technically adequate exam. ECG Findings * Normal sinus rhythm. Left Ventricle * LVEF 55%. * Mild left ventricular diastolic dysfunction. * Normal LV chamber size and wall thickness. Right Ventricle * Normal right ventricular structure and function. Left Atrium * Left atrial size is not optimally visualized. Right Atrium * Right atrium is not well visualized. Aortic Valve * No aortic regurgitation. * Trileaflet aortic valve. * No aortic stenosis. Mitral Valve * No mitral regurgitation. * Normal mitral valve structure. * No mitral stenosis. Tricuspid Valve * Tricuspid valve not well visualized. * Mild tricuspid regurgitation. * Estimated RA pressure is 3 mmHg. * Estimated RVSP is 28 mmHg. * No pulmonary hypertension. Pulmonic Valve * Pulmonic valve is not well visualized. * No pulmonic stenosis. * No pulmonic regurgitation. Pulmonary Artery * Pulmonary artery not well visualized. Aorta * Normally sized aortic root. * Mildly dilated proximal ascending thoracic aorta, 3.8 cm. Pericardium * There is no pericardial effusion present. Interatrial Septum * No evidence of PFO by color Doppler. IVC * Normal IVC dimensions and inspiratory collapse. Consult Discharge Plan - Plan Instructions: How to Check Your Blood Sugar (DC), Diabetes Mellitus Type 2 in Adults (GEN) Referrals: Giovanni Morrow MD [Primary Care Provider] - (1) Chest pain Qualifiers: Chest pain type: unspecified Qualified Code(s): R07.9 - Chest pain, unspecified (2) HTN (hypertension) Qualifiers: Hypertension type: essential hypertension Qualified Code(s): I10 - Essential (primary) hypertension (3) HLD (hyperlipidemia) Qualifiers: Hyperlipidemia type: pure hypercholesterolemia Qualified Code(s): E78.00 - Pure hypercholesterolemia, unspecified; E78.0 - Pure hypercholesterolemia
--- NOTE | 2018-04-11 16:27 | Cardiology Consult Note ---
Date of Encounter: 04/11/18 Time of Encounter: 10:00 Assessment and Plan (1) Atypical chest pain Current Visit: Yes Status: Acute Troponin negative x 2 and no ischemic changes on EKG Will proceed with pharmacological nuclear stress test......negative for ischemia. EF 64%. No further cardiac test needed at this time. (2) Hx of deep venous thrombosis Current Visit: Yes Status: Chronic Hx of multipe DVTs and PE. CTA negative for acute PE in this admission. Lower extremity USS showed chronic thormboses. Continue coumadin dosing to therapeutic INR of 2-3 Discussion w patient/family: The assessment and plan as outlined above was discussed with the patient and/or family members who expressed understanding and agreement. All questions were answered. Thank you for involving us in the care of your patient. Please call with any questions. History of Present Illness Consult date: 04/11/18 Requesting physician: Chely Leigh Consult reason: Chest pain History of present illness: Mr. Akbar is a pleasant 87 year old male with PMH of prostate cancer s/p seed therapy, pulmonary nodule, Factor V Leiden mutation, hx of VTEs s/p IVC filter placed in 09/25/2007, on Coumadin, HLD, and HTN admitted for atypical chest pain at rest. Described as as pressure across his chest that is intermittent and radiates to his neck and shoulder blades, associated dry heaves with shortness of breath. Denies vomiting or diaphoresis. No hemoptysis, no calf pain or swelling. He has been taking his coumadin religiously. Denies history of CAD, unsure if he ever had a stress test. Past Med Surg Social Fam HX - Past Medical History Medical history: cancer, DVT, hypertension Additional medical history: prostate cancer Psychiatric history: no psych history - Past Surgical History Surgical History: herniorrhaphy Additional surgical history: Radiation seeds ([phone] 2009 - Social History Smoking Status: Never smoker Smokeless Tobacco Status: No Alcohol use: none Drug use: none - Family History Son Race: Family Member Ethnicity: Non- Living Status: Still Living Hx Family Cardiac Disorders: Yes (son had 5 stents placed) Father Race: Family Member Ethnicity: Non- Living Status: Age at : 86 Cause of : Complications from hip fx Hx Family Cardiac Disorders: Yes (CVA) Mother Race: Family Member Ethnicity: Non- Living Status: Age at : 74 Cause of : ID Hx Family Cardiac Disorders: Yes (CAD, HTN) Hx Family Endocrine Disorder: Yes (DM) Brother Race: Family Member Ethnicity: Non- Living Status: Age at : 82 Cause of : ID Hx Family Cardiac Disorders: Yes (ID, HTN, CAD) Sister Race: Family Member Ethnicity: Non- Living Status: Still Living Hx Family Cardiac Disorders: Yes (CVA x3) Hx Family Neurologic Disorders: Yes (CVA) Medications and Allergies Losartan Potassium [Cozaar] 50 mg PO DAILY 06/05/17 [History] Simvastatin [Zocor] 20 mg PO HS 06/05/17 [History] Timolol [Betimol] 1 drop BOTH EYES DAILY 04/10/18 [History] Tizanidine HCl [Zanaflex] 2 mg PO DAILY PRN 04/10/18 [History] Warfarin Sodium [Warfarin Sodium] 1.25 mg PO SUTUWEFRSA 04/10/18 [History] Warfarin Sodium [Warfarin Sodium] 2.5 mg PO MOTH 04/10/18 [History] 3 Allergy/AdvReac Type Severity Reaction Status Date / Time No Known Allergies Allergy Verified 04/10/18 11:08 All Systems Review: The remainder of the systems were reviewed and are negative - Constitutional Constitutional: no anorexia, no fever(s), no headache(s) - EENT Eyes: no blurred vision Nose, mouth and throat: no bleeding gums - Cardiovascular Cardiovascular: as per HPI, no chest pain with exertion, no diaphoresis - Respiratory Respiratory: no cough - Gastrointestinal Gastrointestinal: no abdominal pain - Genitourinary Genitourinary: no dysuria - Musculoskeletal Musculoskeletal: no abnormal gait - Integumentary Integumentary: no erythema - Neurological Neurological: no abnormal speech - Psychiatric Psychiatric: no anxiety, no depression - Hematological/Lymphatic Hematologic/Lymphatic: no easy bleeding Physical Examination Vital Signs, Last 4 Hours Temp Pulse Resp BP Pulse Ox 04/11/18 16:03 98.4 F 61 15 138/74 96 04/11/18 15:52 98.3 F 79 16 151/72 97 General: Conversant HEENT: Atraumatic Neck: No JVD Cardiac: Reg Rate and Rhythm, Normal S1 and S2 Lungs: Normal Breath Sounds, No Wheeze, Rales, Rhonchi Neuro: Alert and responsive Abdomen: Soft Musculoskeletal: No Chest Wall Tenderness Extremities: No Edema Results 04/11/18 07:16 04/11/18 07:16 Lab Results 04/10/18 04/11/18 04/11/18 22:55 07:16 07:16 WBC 7.3 Hgb 13.6 Hct 41.5 Plt Count 188 INR Sodium 139 Potassium 4.2 Chloride 107 Carbon Dioxide 26 BUN 20 Creatinine 1.09 Glucose 165 H Calcium 9.1 Magnesium 2.2 Total Bilirubin 0.5 AST 18 ALT 19 Alkaline Phosphatase 49 Troponin I < 0.03 04/11/18 07:16 WBC Hgb Hct Plt Count INR 1.9 Sodium Potassium Chloride Carbon Dioxide BUN Creatinine Glucose Calcium Magnesium Total Bilirubin AST ALT Alkaline Phosphatase Troponin I Consult Discharge Plan - Plan Instructions: How to Check Your Blood Sugar (DC), Diabetes Mellitus Type 2 in Adults (GEN) Referrals: Giovanni Morrow MD [Primary Care Provider] -
[2018-04-11] MEDS ORDERED: *HR* Warfarin 2.5 MG TABLET PO ONE (18:00)
[2018-04-11] MEDS: *HR* Enoxaparin 100 MG/ML SYRINGE SQ SCH (19:37)
[2018-04-11] MEDS: Nystatin POWDER 30 GM BOTTLE TP SCH (19:40)
[2018-04-12] MEDS: *HR* Enoxaparin 100 MG/ML SYRINGE SQ SCH (05:33)
[2018-04-12 05:54] LABS: Basophils # 0.1 K/mcL (0.0-0.2); Basophils % 0.6 %; Eosinophils # 0.3 K/mcL (0.0-0.6); Eosinophils % 3.5 %; Hematocrit 41.9 % (37.5-50.1); Immature Granulocytes % 0.4 % (0-4); Lymphocytes # 1.3 K/mcL (0.6-4.6); Lymphocytes % 15.4 %; Mean Corpuscular HGB Conc 33.4 g/dL (31.6-35.5); Mean Corpuscular Hemoglobin 32.1 pg (28.0-33.3); Mean Corpuscular Volume 96.1 fL (83.0-100.0); Mean Platelet Volume 10.9 fL (9.4-12.4); Monocytes # 0.7 K/mcL (0.0-1.3); Neutrophils # 6.1 K/mcL (1.6-8.9); Platelet Count 190 K/mcL (140-400); Red Blood Count 4.36 M/mcL (4.19-5.50); Red Cell Distribution Width 12.3 % (11.5-14.5); Segmented Neutrophils % 72.1 %
[2018-04-12 05:58] LABS: INR 2.2; Prothrombin Time 24.5 Seconds (9.4-12.1)
[2018-04-12 07:34] LABS: Alanine Aminotransferase 18 Units/L (7-52); Albumin 3.8 g/dL (3.5-5.7); Albumin/Globulin Ratio 1.3 (1.1-2.2); Alkaline Phosphatase 52 Units/L (34-104); Aspartate Amino Transferase 18 Units/L (13-39); BUN/Creatinine Ratio 17 (6-26); Bilirubin,Total 0.6 mg/dL (0.3-1.0); Blood Urea Nitrogen 18 mg/dL (8-23); Calcium 9.2 mg/dL (8.6-10.3); Carbon Dioxide 21 mEq/L (23-29); Chloride 107 mEq/L (98-107); Glucose 166 mg/dL (70-105); Osmolality,Calculated 292 (280-300); Potassium 4.2 mEq/L (3.5-5.1); Sodium 138 mEq/L (136-145); Total Protein 6.8 g/dL (6.4-8.9); eGFR For Non-African Americans > 60 (> 60)
[2018-04-12] MEDS: Nystatin POWDER 30 GM BOTTLE TP SCH (08:08)
[2018-04-12] MEDS: Insulin LISPRO 300 UNITS/3 ML VIAL SQ SCH (08:09)
[2018-04-12] MEDS ORDERED: Aspirin 81 MG TAB.CHEW PO SCH (09:00)
[2018-04-12 12:11] VITALS: BP 126/73
--- NOTE | 2018-04-12 12:24 | Discharge Summary ---
- NOTES TO OUTPATIENT PROVIDER Notes to Outpatient Provider: he has a new diagnosis of DM with A1C 8.6. Blood sugars remained under 200 throughout admission and he was covered with sliding scale insulin if needed. Discussed lifestyle modification and weight loss with pt. No metformin started due to having CTA chest with dye load preformed. He received diabetes education, rxs for blood sugar testing supplies, and needs to follow up in the upcoming days to discuss treatment of diabetes and arrange outpt podiatry and ophtho evals. Please check inr at appt, 2.2 on dc Orders not resulted at time of discharge: Pending orders 04/11/18 10:12 NM franki perf SPECT multi [NM] Routine 04/13/18 04:00 Complete Blood Count [HEME] AM 0400 Comprehensive Metabolic Panel AM 0400 Prothrombin Time INR [COAG] AM 0400 04/14/18 04:00 Prothrombin Time INR [COAG] AM 0400 04/15/18 04:00 Prothrombin Time INR [COAG] AM 0400 Date of Encounter: 04/12/18 Time of Encounter: 10:30 - Discharge Diagnosis (1) Chest pain Priority: Primary Status: Resolved Assessment and Plan: Atypical Acute CP, ACS ruled out, ischemic chest pain ruled out -that pt. reports began nearly a week ago - Initial troponin <0.03. neg x3 -ekg in ED withotu acute ischemic changes -CXR no acute findings - CTA of chest negative for acute PE or aneurysm/dissection. 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 Continue pts. Coumadin w/Pharmacy -Echocardiogram EF 55%, mild diastolic dysfunction, mildly dilated thoracic aorta 3.8 cm, no sig valvular disease, no pulm htn -cards consulted and rec for stress test 04/11 -stress test normal with normal EF -no further cardiac testing recommended -Lipitor 80 mg daily started this admit--lipid panel with elevated TGs and vldl- will cont on dc -november dc asa, cont home arb -fu with pcp Qualifiers: Chest pain type: unspecified Qualified Code(s): R07.9 - Chest pain, unspecified (2) HTN (hypertension) Priority: Secondary Status: Chronic Assessment and Plan: Hx of of chronic HTN. Continue pts. Cozaar. fu with outpt pcp for further management Qualifiers: Hypertension type: essential hypertension Qualified Code(s): I10 - Essential (primary) hypertension (3) HLD (hyperlipidemia) Priority: Secondary Status: Chronic Assessment and Plan: Hx of chronic HLD. Lipid panel with high LDL and low HDL and elevated TGs Continue patient's Zocor. Qualifiers: Hyperlipidemia type: pure hypercholesterolemia Qualified Code(s): E78.00 - Pure hypercholesterolemia, unspecified; E78.0 - Pure hypercholesterolemia (4) History of prostate cancer Priority: Secondary Status: Chronic Assessment and Plan: Hx of prostate cancer. Pt. reports being treated w/seed therapy. (5) Hx of factor V Leiden mutation Priority: Secondary Status: Chronic Assessment and Plan: Hx of chronic Factor V Leiden mutation. Continue pts. Coumadin CTA negative for acute PE, + remote RLL PE BL LE US +R superficial fem vein and popliteal vein chronci thrombosis, left great saphenous superficial chronic thrombosis -INR was subtherapeutic for one day, therapeutic lovenox dosing to bridge to therapeutic INR -pharmacy dosed coumadin -cont home dose on dc and inr check at pcp f/u appt, INR 2.2 on dc (6) Nausea Priority: Secondary Status: Resolved Assessment and Plan: Acute nausea accompanying CP sx. IVP Zofran 4 mg Q6HR PRN for N/V. now resolved (7) SOB (shortness of breath) Priority: Secondary Status: Resolved Assessment and Plan: Acute SOB accompanying CP sx. Now resolved Reports using 2L O2 @ night via NC. Supplemental O2 w/titration and SpO2 monitoring. cont home o2 (8) Hx of deep venous thrombosis Priority: Secondary Status: Chronic (9) KRYSTEN (acute kidney injury) Priority: Secondary Status: Resolved Assessment and Plan: KRYSTEN on admission w/GFR of 58. Resolved Hx of CKD dating back to 2017. avoid nephrotoxins. (10) Hyperglycemia Priority: Secondary Status: Acute Assessment and Plan: New Diagnosis DM with A1C 8.6 -SSI and accu checks while here, he was largely under 200 with little SSI reuirement -discussed diet and exercise, weight loss, diabetic educaiton provided by nursing -would have started metformin, however received dye load for CTA this admit. d/ w pt and his daughter and --he will check bs at home, keep record, fu with pcp in the next 3-5 days to initiate treatment plan (11) DVT prophylaxis Priority: Secondary Status: Acute Assessment and Plan: Continue patient's Coumadin with pharmacy dosing, see above Hospital course: Mr. Akbar is a 87 year old male with atypical chest pain and history of F5LD. Cardiac work up including stress test was negative. Cardiology followed and no further testing required. CTA showed remote PE and US LE showed chronic thromboses but no acute clots identified. Home meds were continued. All symptoms resolved this admission. New diagnosis DM based on A1c. Details of hospital course, treatment and dc recs as noted in assessment/plan. DC to home in stable condition with pcp fu Discharge discussed with: patient, family, nurse - Time Spent with Patient Total time spent providing and/or coordinating discharge services: Less than 30 minutes - Discharge Medications Home Medications: Losartan Potassium [Cozaar] 50 mg PO DAILY 06/05/17 [History] Simvastatin [Zocor] 20 mg PO HS 06/05/17 [History] Timolol [Betimol] 1 drop BOTH EYES DAILY 04/10/18 [History] Tizanidine HCl [Zanaflex] 2 mg PO DAILY PRN 04/10/18 [History] Warfarin Sodium 1.25 mg PO SUTUWEFRSA 04/10/18 [History] Warfarin Sodium 2.5 mg PO MOTH 04/10/18 [History] Allergies/Adverse Reactions: 3 Allergy/AdvReac Type Severity Reaction Status Date / Time No Known Allergies Allergy Verified 04/10/18 11:08 Date of admission: 04/10/18 12:31 Primary care physician: Giovanni Morrow MD Consults: 04/10/18 15:00 Consult to Steward/[employer]ward[employer] [CONS] Routine Reason for SW Consult: Please assess patient for possible home needs for post -discharge planning. Pt. and family are concerned that pts. insurance will not pay for Observation status. Please clarify ARMANDO. 04/10/18 15:01 Consult to Physical Therapy [CONS] Routine Comment: Evaluate, develop and implement POC Reason for Consult: Patient reports bilateral LE weakness and inability to walk long distances d/t SOB and weakness. Please assess patient for ambulation strength, safety, stability, and possible home assistive/rehabilitation needs for postdischarge planning. Does patient have active BEDREST order?: No Is patient medically & hemodynamically stable?: Yes Patient assessed for mobility or mobilized this visit?: No 04/10/18 23:02 Consult to Cardiology [CONS] Routine Comment: Consulting Provider: Cardiology Beba Reason for Consult: Patient admitted w/CP that he describes as across his chest as pressure that is intermittent and radiates to his neck and shoulder blades. First and second troponins <0.03. No recent cardiac w/u. Placed on nitro drip in ED. Hx of DVTs and PEs and on Coumadin. Currently negative for PE but multiple DVTs in LEs. Echocardiogram ordered. Recommendations from Cardiology appreciated on continuation of Coumadin versus heparin if LHC needed as well as contraindications for nuclear stress test d/t multiple DVTs in LEs. Call Completed: Yes Discharging clinician: Giovana Farley - Constitutional Vitals: Temp Pulse Resp BP Pulse Ox 98.7 F 67 15 126/73 97 04/12/18 12:09 04/12/18 12:09 04/12/18 12:09 04/12/18 12:04/12/18 12:09 General appearance: Present: cooperative, A&O X 3, pleasant, no acute distress, answers questions appropriately Exam: General: awake, alert, appears stated age Cardiovascular:regular rate and rhythm, normal S1 & S2, no rubs, murmurs or gallops. No JVD. radial pulses 2+, no lower extremity edema Lungs:Normal breath sounds, no wheezes, or crackles. Normal respiratory effort on RA Abdomen:Soft, non-tender, non-distended, , + bowel sounds Neurological: AAOx3 Skin:Normal color, no rash, no pallor, no jaundice - Patient Status Disposition: Home, Self-Care Condition: Good Overall status at discharge: patient is back to baseline - Discharge Instructions Instructions: How to Check Your Blood Sugar (DC), Diabetes Mellitus Type 2 in Adults (GEN) Follow Up With: Giovanni Morrow MD [Primary Care Provider] - - Diet and Activity Activity: increase activity as tolerated Diet: diabetic diet
[2018-04-12] MEDS ORDERED: *HR* Warfarin 2.5 MG TABLET PO ONE (18:00)
== END 2018-04-12 16:20 | disposition home or self-care (01) ==
LOC: 3BNU 09:02 → EMEROOARM 09:02 → SUATTDRO 12:31 → 3BNU 13:27
PROVIDERS: ADMIT Student in an Organized Health Care Education/Training Program; ATTEND Internal Medicine

== ENCOUNTER 2018-04-23 19:22 | Observation (INO) ==
[2018-04-23] MEDS ORDERED: 0.9 % Sodium Chloride 1,000 ML IVC ONE (21:04)
--- NOTE | 2018-04-23 21:05 | Emergency Department Note ---
Disposition Clinical Impression: Hematochezia, Abdominal pain, Lower GI bleed, Anticoagulated on Coumadin Disposition: Admitted As Inpatient Condition: Fair Referrals: Giovanni Morrow MD [Primary Care Provider] - Forms: ED Satisfaction Letter Time of Disposition: 23:11 GI Bleed HPI - General Chief complaint: ED GI Bleed Stated complaint: Rectal Bleeding Time Seen by Provider: 04/23/18 20:15 Source: patient, family Limitations: no limitations Nursing Notes Reviewed: Yes Vital Signs Reviewed: Yes - History of Present Illness HPI Narrative: 87yo male presents from home for evaluation of bright red blood in his stools. This occurred twice today. Associate with straining. Patient had copious bright red blood in the commode as well as blood on the toilet tissue. Patient has dyspnea slightly worse than his chronic dyspnea. He has weakness slightly worse than his chronic weakness. 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 Pulmonary nodule. HTN, HLD. Hx prostate cancer with seed therapy. Patient denies history of diverticulosis. Patient has never had a colonoscopy. ROS: Positive: As above Negative: Fever, chills, nausea, vomiting, chest pains, palpitations, diaphoresis, abdominal pain, dysuria - Related Data Home Medications Medication Instructions Recorded Confirmed Losartan Potassium [Cozaar] 50 mg PO DAILY 06/05/17 04/10/18 Simvastatin [Zocor] 20 mg PO HS 06/05/17 04/10/18 Timolol [Betimol] 1 drop BOTH EYES DAILY 04/10/18 04/10/18 Tizanidine HCl [Zanaflex] 2 mg PO DAILY PRN 04/10/18 04/10/18 Warfarin Sodium 1.25 mg PO SUTUWEFRSA 04/10/18 04/10/18 Warfarin Sodium 2.5 mg PO MOTH 04/10/18 04/10/18 Allergies Allergy/AdvReac Type Severity Reaction Status Date / Time No Known Allergies Allergy Verified 04/10/18 11:08 All systems ED: reviewed and negative except as stated. Review of Systems: As Per HPI Past Medical History - Past Medical History Medical history: Reports: cancer, DVT, hypertension Surgical history: Reports: herniorrhaphy Psychiatric history: Reports: no psych history - Social History Smoking Status: Never smoker Smokeless Tobacco Status: No Alcohol use: Reports: none Drug use: Reports: none Physical Exam Vital Signs Reviewed General: Patient is alert, oriented, and in no acute distress. Head: atraumatic, normocephalic Eye: normal appearance, PERRL, EOMI, no scleral icterus, no conjunctival injection ENT: mucous membranes moist, normal external ear exam Neck: normal inspection, trachea midline, full ROM Chest: normal inspection, symmetric chest rise Respiratory: Good respiratory effort. Bilateral breath sounds are clear without wheezing, crackles, or rhonchi. Cardiovascular: Regular rate and rhythm. No clicks, rubs, gallops, or murmors. Normal heart sounds. Abdomen: Bowel sounds present normoactive x-4 quadrants. Abdomen is soft, nondistended, and nontender. No guarding or rebound. Rectal exam: [place] Maker present. Appropriate rectal tone. Bright red blood mixed with stool on glove fingertip. FOBT submitted. Musculoskeletal: Spontaneously moving all extremities. Skin: warm, dry, intact. Neuro: Alert and oriented x4. Sensation light touch intact. Psych: Patient's affect is appropriate for situation. - General Limitations: no limitations General appearance: alert, in no apparent distress Course Course Narrative: 04/11/2018 nuclear stress test: Impression: Normal hemodynamic response to pharmacologic stress. Negative for ischemia at level of heart rate achieved. ECG not appreciably changed from baseline. No arrhythmias noted. No chest pain during stress test. Resting EKG was normal sinus rhythm with right bundle branch block. 04/10/2018 CTA of the chest with CT abdomen pelvis with IV contrast: Radiology impression: No PE. Right lower lobe pulmonary artery filling defect suggestive of remote/chronic nonocclusive PE. 4 mm left lower lobe nodule. Hepatic steatosis. Sigmoid diverticulosis without acute diverticulitis. Prostate nodule. 04/10/18 echocardiogram: Impression: LVEF 55% with mild LV diastolic dysfunction. Mild tricuspid regurg. No pulmonary Mildly dilated proximal ascending thoracic aorta 3.8 cm. Serum hematology shows no anemia. Serum chemistry shows elevation in creatinine above his baseline. INR is 2.5; appropriate for his Leiden factor V mutation. No elevation in lactic acid or troponin. Discussed the above with the patient's family. Discussed my concern over the patient's age, his cardiac history, his anticoagulation on Coumadin, is bright red blood per rectum, and the need for a colonoscopy. They agreed to admission to the hospital. I discussed the above with the hospitalist, Dr. Sepulveda, who agrees to accept the patient for continued evaluation and management. Consultation placed to gastroenterology with no call placed. EKG dated 04/23/2018 at 21:25 interpreted as sinus rhythm with rate of 61. MT 172. QTC 470. Normal axis. Nonspecific ST-T changes. Compared to previous EKG dated 04/10/2018 showing no acute ischemic changes in comparison. Chest X-Ray 04/23/18 21:04 IMPRESSION: Persistently enlarged cardiomediastinal silhouette. No radiographic evidence of acute cardiopulmonary process. D/ / Kevin Godinez MD / Kevin Godinez MD Interpreting Provider: Kevin Godinez MD Abdomen/Pelvis CT 04/23/18 22:17 IMPRESSION: Diverticulosis without scan evidence for diverticulitis or other acute process. D/ / Rudolph Breen MD / Rudolph Breen MD Interpreting Provider: Rudolph Breen MD Vital Signs Temperature 98.3 F 04/23/18 19:24 Pulse Rate 71 04/23/18 19:24 Respiratory Rate 18 04/23/18 19:24 Blood Pressure 123/64 04/23/18 19:24 O2 Sat by Pulse Oximetry 98 04/23/18 19:24 Temperature 98.3 F 04/23/18 19:24 Pulse Rate 57 04/23/18 22:00 Respiratory Rate 18 04/23/18 19:24 Blood Pressure 118/58 04/23/18 22:00 O2 Sat by Pulse Oximetry 99 04/23/18 22:00 Oxygen Delivery Oxygen Delivery Room Air GI Bleed - Lab Data Result diagrams: 04/23/18 21:25 04/23/18 21:25 Lab Results 04/23/18 04/23/18 04/23/18 Range/Units 20:50 21:25 21:25 WBC (4.3-11.1) K/mcL RBC (4.19-5.50) M/mcL Hgb (12.9-16.9) g/dL Hct (37.5-50.1) % MCV (83.0-100.0) fL MCH (28.0-33.3) pg MCHC (31.6-35.5) g/dL RDW (11.5-14.5) % Plt Count (140-400) K/mcL MPV (9.4-12.4) fL Immature Gran % (0-4) % Seg Neutrophils % % Lymphocytes % % Monocytes % % Eosinophils % % Basophils % % Neutrophils # (1.6-8.9) K/mcL Lymphocytes # (0.6-4.6) K/mcL Monocytes # (0.0-1.3) K/mcL Eosinophils # (0.0-0.6) K/mcL Basophils # (0.0-0.2) K/mcL PT (9.4-12.1) Seconds INR APTT (26.0-36.0) Seconds Sodium (136-145) mEq/L Potassium (3.5-5.1) mEq/L Chloride (98-107) mEq/L Carbon Dioxide (23-29) mEq/L BUN (8-23) mg/dL Creatinine (0.70-1.30) mg/dL Est GFR ( Amer) (> 60) Est GFR (Non-Af Amer) (> 60) BUN/Creatinine Ratio (6-26) Glucose (70-105) mg/dL Calculated Osmolality (280-300) Lactic Acid 1.1 (0.5-2.2) mmol/L Calcium (8.6-10.3) mg/dL Troponin I < 0.03 (< 0.04) ng/mL Lipase 43 (11-82) Units/L Stool Occult Bld Scrn Positive A (Negative) Blood Type Antibody Screen 04/23/18 04/23/18 04/23/18 Range/Units 21:25 21:25 21:25 WBC 8.3 (4.3-11.1) K/mcL RBC 4.18 L (4.19-5.50) M/mcL Hgb 13.4 (12.9-16.9) g/dL Hct 40.8 (37.5-50.1) % MCV 97.6 (83.0-100.0) fL MCH 32.1 (28.0-33.3) pg MCHC 32.8 (31.6-35.5) g/dL RDW 12.5 (11.5-14.5) % Plt Count 221 (140-400) K/mcL MPV 10.8 (9.4-12.4) fL Immature Gran % 0.5 (0-4) % Seg Neutrophils % 70.1 % Lymphocytes % 17.6 % Monocytes % 9.4 % Eosinophils % 1.9 % Basophils % 0.5 % Neutrophils # 5.8 (1.6-8.9) K/mcL Lymphocytes # 1.5 (0.6-4.6) K/mcL Monocytes # 0.8 (0.0-1.3) K/mcL Eosinophils # 0.2 (0.0-0.6) K/mcL Basophils # 0.0 (0.0-0.2) K/mcL PT 27.9 H (9.4-12.1) Seconds INR 2.5 APTT 41.0 H (26.0-36.0) Seconds Sodium 139 (136-145) mEq/L Potassium 3.9 (3.5-5.1) mEq/L Chloride 107 (98-107) mEq/L Carbon Dioxide 25 (23-29) mEq/L BUN 27 H (8-23) mg/dL Creatinine 1.46 H (0.70-1.30) mg/dL Est GFR ( Amer) 55 L (> 60) Est GFR (Non-Af Amer) 46 L (> 60) BUN/Creatinine Ratio 18 (6-26) Glucose 135 H (70-105) mg/dL Calculated Osmolality 295 (280-300) Lactic Acid (0.5-2.2) mmol/L Calcium 9.3 (8.6-10.3) mg/dL Troponin I (< 0.04) ng/mL Lipase (11-82) Units/L Stool Occult Bld Scrn (Negative) Blood Type Antibody Screen 04/23/18 Range/Units 21:25 WBC (4.3-11.1) K/mcL RBC (4.19-5.50) M/mcL Hgb (12.9-16.9) g/dL Hct (37.5-50.1) % MCV (83.0-100.0) fL MCH (28.0-33.3) pg MCHC (31.6-35.5) g/dL RDW (11.5-14.5) % Plt Count (140-400) K/mcL MPV (9.4-12.4) fL Immature Gran % (0-4) % Seg Neutrophils % % Lymphocytes % % Monocytes % % Eosinophils % % Basophils % % Neutrophils # (1.6-8.9) K/mcL Lymphocytes # (0.6-4.6) K/mcL Monocytes # (0.0-1.3) K/mcL Eosinophils # (0.0-0.6) K/mcL Basophils # (0.0-0.2) K/mcL PT (9.4-12.1) Seconds INR APTT (26.0-36.0) Seconds Sodium (136-145) mEq/L Potassium (3.5-5.1) mEq/L Chloride (98-107) mEq/L Carbon Dioxide (23-29) mEq/L BUN (8-23) mg/dL Creatinine (0.70-1.30) mg/dL Est GFR ( Amer) (> 60) Est GFR (Non-Af Amer) (> 60) BUN/Creatinine Ratio (6-26) Glucose (70-105) mg/dL Calculated Osmolality (280-300) Lactic Acid (0.5-2.2) mmol/L Calcium (8.6-10.3) mg/dL Troponin I (< 0.04) ng/mL Lipase (11-82) Units/L Stool Occult Bld Scrn (Negative) Blood Type O POSITIVE Antibody Screen NEGATIVE Attestation Statement - Attestation Attestation: I, Chinedu Waters DO, examined this patient [id number] and my medical decision-making was reviewed with Dr. Benitez Cummings, Resident Physician. I agree with the documented findings, disposition and treatment plan as described except to the extent set forth below. Please see my progress notes for details.
[2018-04-23] MEDS ORDERED: Isovue-370 500 ML INFUS..BTL IV ONE (21:06)
[2018-04-23 21:40] LABS: Basophils % 0.5 %; Eosinophils # 0.2 K/mcL (0.0-0.6); Eosinophils % 1.9 %; Hematocrit 40.8 % (37.5-50.1); Hemoglobin 13.4 g/dL (12.9-16.9); Immature Granulocytes % 0.5 % (0-4); Lymphocytes # 1.5 K/mcL (0.6-4.6); Lymphocytes % 17.6 %; Mean Corpuscular HGB Conc 32.8 g/dL (31.6-35.5); Mean Corpuscular Hemoglobin 32.1 pg (28.0-33.3); Mean Corpuscular Volume 97.6 fL (83.0-100.0); Mean Platelet Volume 10.8 fL (9.4-12.4); Monocytes # 0.8 K/mcL (0.0-1.3); Monocytes % 9.4 %; Neutrophils # 5.8 K/mcL (1.6-8.9); Platelet Count 221 K/mcL (140-400); Red Blood Count 4.18 M/mcL (4.19-5.50); Red Cell Distribution Width 12.5 % (11.5-14.5); Segmented Neutrophils % 70.1 %
[2018-04-23 21:50] LABS: INR 2.5; Prothrombin Time 27.9 Seconds (9.4-12.1)
[2018-04-23 21:59] LABS: Calcium 9.3 mg/dL (8.6-10.3); Potassium 3.9 mEq/L (3.5-5.1)
[2018-04-23 22:02] LABS: Lipase 43 Units/L (11-82); Troponin I < 0.03 ng/mL (< 0.04)
--- NOTE | 2018-04-23 22:02 | Emergency Department Note ---
Disposition Clinical Impression: Hematochezia, Lower gastrointestinal hemorrhage Disposition: Admitted As Inpatient Condition: Fair Forms: ED Satisfaction Letter Time of Disposition: 23:08 General Adult HPI - General Chief complaint: ED GI Bleed Stated complaint: Rectal Bleeding Time Seen by Provider: 04/23/18 20:15 Source: patient, family Limitations: no limitations - History of Present Illness Pain Scale: 0 - Related Data Home Medications Medication Instructions Recorded Confirmed Losartan Potassium [Cozaar] 50 mg PO DAILY 06/05/17 04/10/18 Simvastatin [Zocor] 20 mg PO HS 06/05/17 04/10/18 Timolol [Betimol] 1 drop BOTH EYES DAILY 04/10/18 04/10/18 Tizanidine HCl [Zanaflex] 2 mg PO DAILY PRN 04/10/18 04/10/18 Warfarin Sodium 1.25 mg PO SUTUWEFRSA 04/10/18 04/10/18 Warfarin Sodium 2.5 mg PO MOTH 04/10/18 04/10/18 Allergies Allergy/AdvReac Type Severity Reaction Status Date / Time No Known Allergies Allergy Verified 04/10/18 11:08 Past Medical History - Past Medical History Medical history: Reports: cancer, DVT, hypertension Surgical history: Reports: herniorrhaphy Psychiatric history: Reports: no psych history - Social History Smoking Status: Never smoker Smokeless Tobacco Status: No Alcohol use: Reports: none Drug use: Reports: none Physical Exam - General Limitations: no limitations General appearance: alert, in no apparent distress Course Vital Signs Temperature 98.3 F 04/23/18 19:24 Pulse Rate 71 04/23/18 19:24 Respiratory Rate 18 04/23/18 19:24 Blood Pressure 123/64 04/23/18 19:24 O2 Sat by Pulse Oximetry 98 04/23/18 19:24 Temperature 98.3 F 04/23/18 19:24 Pulse Rate 71 04/23/18 19:24 Respiratory Rate 18 04/23/18 19:24 Blood Pressure 123/64 04/23/18 19:24 O2 Sat by Pulse Oximetry 98 04/23/18 19:24 Oxygen Delivery Oxygen Delivery Room Air Medical Decision Making - Lab Data Result diagrams: 04/23/18 21:25 Lab Results 04/23/18 04/23/18 04/23/18 Range/Units 20:50 21:25 21:25 WBC 8.3 (4.3-11.1) K/mcL RBC 4.18 L (4.19-5.50) M/mcL Hgb 13.4 (12.9-16.9) g/dL Hct 40.8 (37.5-50.1) % MCV 97.6 (83.0-100.0) fL MCH 32.1 (28.0-33.3) pg MCHC 32.8 (31.6-35.5) g/dL RDW 12.5 (11.5-14.5) % Plt Count 221 (140-400) K/mcL MPV 10.8 (9.4-12.4) fL Immature Gran % 0.5 (0-4) % Seg Neutrophils % 70.1 % Lymphocytes % 17.6 % Monocytes % 9.4 % Eosinophils % 1.9 % Basophils % 0.5 % Neutrophils # 5.8 (1.6-8.9) K/mcL Lymphocytes # 1.5 (0.6-4.6) K/mcL Monocytes # 0.8 (0.0-1.3) K/mcL Eosinophils # 0.2 (0.0-0.6) K/mcL Basophils # 0.0 (0.0-0.2) K/mcL PT (9.4-12.1) Seconds INR APTT (26.0-36.0) Seconds Lactic Acid 1.1 (0.5-2.2) mmol/L Stool Occult Bld Scrn Positive A (Negative) 04/23/18 Range/Units 21:25 WBC (4.3-11.1) K/mcL RBC (4.19-5.50) M/mcL Hgb (12.9-16.9) g/dL Hct (37.5-50.1) % MCV (83.0-100.0) fL MCH (28.0-33.3) pg MCHC (31.6-35.5) g/dL RDW (11.5-14.5) % Plt Count (140-400) K/mcL MPV (9.4-12.4) fL Immature Gran % (0-4) % Seg Neutrophils % % Lymphocytes % % Monocytes % % Eosinophils % % Basophils % % Neutrophils # (1.6-8.9) K/mcL Lymphocytes # (0.6-4.6) K/mcL Monocytes # (0.0-1.3) K/mcL Eosinophils # (0.0-0.6) K/mcL Basophils # (0.0-0.2) K/mcL PT 27.9 H (9.4-12.1) Seconds INR 2.5 APTT 41.0 H (26.0-36.0) Seconds Lactic Acid (0.5-2.2) mmol/L Stool Occult Bld Scrn (Negative) Attestation Statement - Attestation Attestation: I, Chinedu Waters DO, examined this patient [id number] and my medical decision-making was reviewed with Dr. Benitez Cummings, Resident Physician. I agree with the documented findings, disposition and treatment plan as described except to the extent set forth below. Please see my progress notes for details. 87-year-old male presents emergency room with gross hematochezia here today. He denied any trauma or injury with it. He does have blood in the stool since yesterday. Patient is on Coumadin secondary to factor V deficiency. He was seen and evaluated and admitted by myself less than 2 weeks ago. During that admission process at an echocardiogram stress test and Doppler studies of his lower extremities completed. Patient was discharged home with persistent chest discomfort but did not have a cardiac etiology noted during the treatment course and evaluation here in the hospital setting. He presents here today secondary to the pain in his lower abdomen as well as blood in his stool. Denies any fever cough cold congestion chest pain shortness breath headache vision changes nausea vomiting or diarrhea. He did have constipation with a very closed with 3 days ago and then his had blood in his stool for the last 24 hours. Rectal examination was completed initially with gross blood noted at the rectal wall. No visible signs of large fissure but possible tears at the anal verge were noted. Patient also had good sphincter tone. No stool in the rectal vault was noted. Vital signs are stable patient does appear to be in some mild distress. Otherwise is not describing any other complaints or issues. Lungs are clear heart is regular abdomen is soft does have tenderness in left lower quadrant of the abdomen that is worse in the right. No specific history of hemorrhoids or Polyps. Patient does have a history of prostate related disease but is never had any surgical resection. Patient will have detailed workup. In today with CBC chemistry labs including chest x-ray troponin and BNP type and screen Hemoccult testing. CT imaging the abdomen was also ordered. Fluids pain medication will be provided as needed. Patient is otherwise resting in the bed. Disposition pending the full workup and treatment course. See detailed documentation of the physical exam, medical intervention, medical decision-making and disposition in the resident physician' s note. No critical care provider the patient's treatment course at this time. 2200 Hemoglobin appears to be stable. INR is 2.5. Creatinine is slightly elevated from baseline fluids will be provided.. Hemoccult testing is positive. CT imaging the abdomen is pending. Chest x-ray was added on as well. EKG appears to be stable. 2300 CT imaging of the abdomen is negative for diverticulitis. No signs of perforation obstruction or other intra-abdominal related etiology at this time. Patient was discussed with the hospitalist detailed review the presentation symptoms were discussed. No other concerns or issues noted this time. Patient will be admitted secondary to his age, coagulation and GI bleed. Patient family informed no other acute issues noted this time. Labs are otherwise unremarkable. Patient will be observed here in the emergency room until admission process is completed. Creatinine is slightly elevated and fluids have been provided.
[2018-04-24] MEDS ORDERED: tiZANidine 4 MG TABLET PO PRN (00:33)
[2018-04-24] MEDS: Ringers Solution, Lactated 1,000 ML IVC SCH ×2 (01:36→11:05)
--- NOTE | 2018-04-24 01:48 | Internal Med History&Physical ---
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 He presents today with a complaint of bright red blood per rectum that started today. He does report a chronic history of constipation and he frequently strains however he has never had bleeding through his stool. Denies any associated abdominal pain or cramping but noticed blood all over the toilet and it happened on 2 occasions prior to coming to the hospital. While he was clinically and hemodynamically stable on arrival physical exam done was not revealing of external hemorrhoids or fissures however there was gross blood noted in the rectal wall from gloved finger exam. Although his hemoglobin is stable and he shows no signs of decompensation, being that he is on warfarin with a therapeutic INR we have decided to observe him overnight in case of any recurrence requiring reversion of his INR. At this time he reports feeling well and has no other complaints. Past Med Surg Social Fam HX - Past Medical History Medical history: cancer, DVT, hypertension Additional medical history: prostate cancer Psychiatric history: no psych history - Past Surgical History Surgical History: herniorrhaphy Additional surgical history: Radiation seeds ([phone] 2009 - Social History Smoking Status: Never smoker Smokeless Tobacco Status: No Alcohol use: none Drug use: none - Family History Son Family Member Ethnicity: Non- Living Status: Still Living Hx Family Cardiac Disorders: Yes (son had 5 stents placed) Father Family Member Ethnicity: Non- Living Status: Hx Family Cardiac Disorders: Yes (CVA) Mother Family Member Ethnicity: Non- Living Status: Hx Family Cardiac Disorders: Yes (CAD, HTN) Hx Family Endocrine Disorder: Yes (DM) Brother Family Member Ethnicity: Non- Living Status: Hx Family Cardiac Disorders: Yes (ND, HTN, CAD) Sister Family Member Ethnicity: Non- Living Status: Still Living Hx Family Cardiac Disorders: Yes (CVA x3) Hx Family Neurologic Disorders: Yes (CVA) Internal Medicine - H&P: Meds Losartan Potassium [Cozaar] 50 mg PO DAILY 06/05/17 [History] Simvastatin [Zocor] 20 mg PO HS 06/05/17 [History] Timolol [Betimol] 1 drop BOTH EYES DAILY 04/10/18 [History] Tizanidine HCl [Zanaflex] 2 mg PO DAILY PRN 04/10/18 [History] Warfarin Sodium 1.25 mg PO SUTUWEFRSA 04/10/18 [History] Warfarin Sodium 2.5 mg PO MOTH 04/10/18 [History] 3 Allergy/AdvReac Type Severity Reaction Status Date / Time No Known Allergies Allergy Verified 04/10/18 11:08 All Systems PM: A 10-system review of systems was performed and is negative for pertinent findings except as documented above in the HPI. - Constitutional Vitals: Temp Pulse Resp BP Pulse Ox 97.8 F 58 15 127/74 97 04/24/18 00:19 04/24/18 00:19 04/24/18 00:19 04/24/18 00:19 04/24/18 00:19 Exam: Vitals: Reviewed General: Well-developed male lying comfortably in bed in no acute distress Skin: Warm and supple HEENT: Moist mucous membranes. No conjunctivae pallor. Neck: No lymphadenopathy. No JVD. No carotid bruits. No palpable thyroid. Chest: Normal thoracic expansion. Normal breath sounds. Clear to auscultation. Heart: Normal S1 & S2; rhythmic. No rubs or murmurs. Abdomen: Non-distended, soft and non-tender to palpation. Extremities: No clubbing, cyanosis or edema. No calf tenderness. Normal distal pulses. Neurological: Awake, alert and oriented to person, place and time. No focal deficits. Psych: Affect appropriate. Internal Med - H&P Results - Labs CBC & Chem 7: 04/23/18 21:25 04/23/18 21:25 - Assessment and plan (1) Lower gastrointestinal hemorrhage Current Visit: Yes Status: Acute Assessment and plan: Being completely painless bright red blood per rectum differentials include diverticulosis and colonic angiodysplasias. We shall obtain a CT scan of his abdomen and pelvis for further assessment. He will remain nothing by mouth pending GI evaluation in the morning. Obtain repeat H&H every 4 hours 3. If active bleeding recurs or becomes hemodynamically unstable FFP shall be given to revert INR. For now warfarin will remain simply on hold given his extensive history of venous thromboembolic phenomena. (2) KRYSTEN (acute kidney injury) Current Visit: Yes Status: Resolved Assessment and plan: Likely due to volume depletion. We will give IV fluids and recheck creatinine in the morning. (3) HLD (hyperlipidemia) Current Visit: Yes Status: Chronic Assessment and plan: On statin therapy. Qualifiers: Hyperlipidemia type: unspecified Qualified Code(s): E78.5 - Hyperlipidemia , unspecified (4) HTN (hypertension) Current Visit: Yes Status: Chronic Assessment and plan: We will hold antihypertensives for now in the setting of bleeding until we can ensure clinical and hemodynamic stability. 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 (6) DVT prophylaxis Current Visit: Yes Status: Acute Assessment and plan: On antiembolic stockings and INR is currently therapeutic. - Time Spent With Patient Total time spent is greater than 50% in coordination of care (as documented) at patient's floor/unit and/or counseling patient: Greater than 35 minutes
[2018-04-24 02:00] LABS: Basophils % 0.5 %; Eosinophils # 0.2 K/mcL (0.0-0.6); Eosinophils % 2.4 %; Hematocrit 36.7 % (37.5-50.1); Immature Granulocytes % 0.4 % (0-4); Lymphocytes # 1.7 K/mcL (0.6-4.6); Mean Corpuscular HGB Conc 32.7 g/dL (31.6-35.5); Mean Corpuscular Hemoglobin 32.1 pg (28.0-33.3); Mean Corpuscular Volume 98.1 fL (83.0-100.0); Mean Platelet Volume 10.7 fL (9.4-12.4); Monocytes # 0.7 K/mcL (0.0-1.3); Monocytes % 8.7 %; Neutrophils # 5.3 K/mcL (1.6-8.9); Platelet Count 196 K/mcL (140-400); Red Blood Count 3.74 M/mcL (4.19-5.50); Red Cell Distribution Width 12.5 % (11.5-14.5)
[2018-04-24 02:05] LABS: INR 2.7; Prothrombin Time 30.2 Seconds (9.4-12.1)
[2018-04-24 02:09] LABS: Activated Partial Thrombo Time 37.3 Seconds (26.0-36.0)
[2018-04-24 02:18] LABS: BUN/Creatinine Ratio 20 (6-26); Blood Urea Nitrogen 25 mg/dL (8-23); Calcium 8.7 mg/dL (8.6-10.3); Carbon Dioxide 24 mEq/L (23-29); Chloride 110 mEq/L (98-107); Glucose 136 mg/dL (70-105); Osmolality,Calculated 298 (280-300); Potassium 3.9 mEq/L (3.5-5.1); Sodium 141 mEq/L (136-145); eGFR For Non-African Americans 54 (> 60)
[2018-04-24] MEDS: Nystatin POWDER 30 GM BOTTLE TP SCH ×3 (11:07→22:34)
[2018-04-24] MEDS ORDERED: Albuterol 2.5 MG/3 ML NEBULIZER IH PRN (12:05)
[2018-04-24] MEDS ORDERED: *HR* Dextrose 50 % in Water (Syg) 50 ML SYRINGE IVP PRN (12:33)
[2018-04-24] MEDS ORDERED: D5% in Water 1,000 ML IVC PRN (12:33)
[2018-04-24] MEDS ORDERED: Dextrose Gel 15 GM/37.5 ML TUBE PO PRN ×2 (12:33)
--- NOTE | 2018-04-24 12:42 | Gastroenterology Consult Note ---
<MacHimanshu lugo Joseph - Last Filed: 04/24/18 12:40> Date of Encounter: 04/24/18 Time of Encounter: 11:15 - Assessment and plan (1) Lower gastrointestinal hemorrhage Current Visit: Yes Status: Acute Assessment and plan: On admission Hgb 13.4, MCV 97.6, INR 2.5 and this AM Hgb 12, MCV 98.1, INR 2.7. Baseline Hgb 13-14. Continue to monitor CBC and transfuse PRBC as needed. Plan for colonoscopy tomorrow. Clear liquid diet today, no red or purple. NPO at midnight. If unable tolerate NuLytely please use MiraLAX prep. If not clear by 6 AM, give 2 tap water enemas. (2) Hx of factor V Leiden mutation Current Visit: No Status: Chronic (3) Anticoagulated on Coumadin Current Visit: Yes Status: Acute - Time Spent With Patient Total time spent is greater than 50% in coordination of care (as documented) at patient's floor/unit and/or counseling patient: GI History of Present Illness - Data of Consult Patient: new to practice Consult date: 04/24/18 Requesting Physician: Boubacar Sepulveda MD - Consult Narrative Reason for consult: Hematochezia, diverticulosis History of present illness: Mr. Akbar is a 87 year old male with PMHx of PE, DVT, factor V Leiden-on Coumadin, HTN HLD, prostate cancer, and CKD who was recently admitted here for chest pain with before meals as being ruled out and a negative stress test less than 2 weeks ago. He presents 04/23 with a complaint of bright red blood per rectum that started the day of admission. He does report a chronic history of constipation and he frequently strains however he has never had bleeding through his stool. Denies any associated abdominal pain or cramping but noticed blood all over the toilet and it happened on 2 occasions prior to coming to the hospital. His warfarin was held given his extensive history of venous thromboembolic phenomena. On admission Hgb 13.4, MCV 97.6, INR 2.5 and this AM Hgb 12, MCV 98.1, INR 2.7. Baseline Hgb 13-14. Procedures: No record NSAIDs: None Anticoagulation: Coumadin Past Med Surg Social Fam HX - Past Medical History Medical history: cancer, DVT, hypertension Additional medical history: prostate cancer Psychiatric history: no psych history - Past Surgical History Surgical History: herniorrhaphy Additional surgical history: Radiation seeds ([phone] 2009 - Social History Smoking Status: Never smoker Smokeless Tobacco Status: No Alcohol use: none Drug use: none - Family History Son Family Member Ethnicity: Non- Living Status: Still Living Hx Family Cardiac Disorders: Yes (son had 5 stents placed) Father Family Member Ethnicity: Non- Living Status: Hx Family Cardiac Disorders: Yes (CVA) Mother Family Member Ethnicity: Non- Living Status: Hx Family Cardiac Disorders: Yes (CAD, HTN) Hx Family Endocrine Disorder: Yes (DM) Brother Family Member Ethnicity: Non- Living Status: Hx Family Cardiac Disorders: Yes (HI, HTN, CAD) Sister Family Member Ethnicity: Non- Living Status: Still Living Hx Family Cardiac Disorders: Yes (CVA x3) Hx Family Neurologic Disorders: Yes (CVA) - Gastrointestinal Gastrointestinal: Present: as per HPI - Constitutional Constitutional: as per HPI - EENT Eyes: as per HPI Ears: Present: as per HPI Nose, mouth and throat: Present: as per HPI - Cardiovascular Cardiovascular ROS: Present: as per HPI - Respiratory Respiratory IM: Present: as per HPI - Genitourinary Genitourinary: Absent: change in color, Urinary frequency - Neurological ROS Neurological GI: Present: as per HPI - Hematologic/Lymphatic Hematologic/Lymphatic pediatric: Present: as per HPI - Musculoskeletal Musculoskeletal ROS GI: Present: as per HPI - Integumentary Integumentary GI: Present: as per HPI - Psychiatric ROS Psychiatric GI: Present: as per HPI - Endocrine Endocrine IM: Present: as per HPI - Constitutional Vitals: Temp Pulse Resp BP Pulse Ox 98.4 F 53 16 134/71 97 04/24/18 11:09 04/24/18 11:09 04/24/18 11:09 04/24/18 11:09 04/24/18 11:09 General appearance: Present: cooperative, A&O X 3, no acute distress, answers questions appropriately - Head Head exam: Present: atraumatic, normocephalic - Eye Eye exam: Present: normal appearance, sclera anicteric - ENT ENT exam: Present: mucous membranes dry - Neck Neck exam general surgery: Present: normal inspection, trachea midline - Respiratory Respiratory exam: Present: CTAB. Absent: rales, rhonchi - Cardiovascular Cardiovascular exam: Present: RRR, +S1, +S2 - GI/Abdominal GI/Abdominal exam: Present: soft, no peritoneal signs. Absent: distended, firm , guarding, tenderness - Rectal Rectal exam: Present: deferred - Extremities Exam Extremities exam: Present: warm - Neurological Exam Neurological exam: Present: no focal deficits - Psychiatric Psychiatric exam: Present: normal affect, normal mood - Skin Skin exam: Present: dry, intact, normal color, warm Results - Labs CBC & Chem 7: 04/24/18 01:34 04/24/18 01:34 Labs: Last Result Calcium 8.7 mg/dL (8.6-10.3) 04/24/18 01:34 Troponin I < 0.03 ng/mL (< 0.04) 04/23/18 21:25 Entire Visit Hgb 12.0 g/dL (12.9-16.9) L 04/24/18 01:34 Hct 36.7 % (37.5-50.1) L 04/24/18 01:34 PT 30.2 Seconds (9.4-12.1) H 04/24/18 01:34 Lipase 43 Units/L (11-82) 04/23/18 21:25 - ABG ABG results: PT/INR, D-dimer PT 30.2 Seconds (9.4-12.1) H 04/24/18 01:34 Consult Discharge Plan - Plan Referrals: Giovanni Morrow MD [Primary Care Provider] - <Colette Hernandez - Last Filed: 04/24/18 18:33> Date of Encounter: 04/24/18 Time of Encounter: 14:35 - Time Spent With Patient Total time spent is greater than 50% in coordination of care (as documented) at patient's floor/unit and/or counseling patient: GI History of Present Illness - Data of Consult Requesting Physician: Boubacar Seuplveda MD - Consult Narrative History of present illness: Mr. Akbar is a 87 year old male - Constitutional Vitals: Temp Pulse Resp BP Pulse Ox 98.5 F 57 16 133/69 97 04/24/18 16:50 04/24/18 16:50 04/24/18 16:50 04/24/18 16:50 04/24/18 16:50 Results - Labs CBC & Chem 7: 04/24/18 01:34 04/24/18 01:34 Labs: Last Result Calcium 8.7 mg/dL (8.6-10.3) 04/24/18 01:34 Troponin I < 0.03 ng/mL (< 0.04) 04/23/18 21:25 Entire Visit Hgb 12.0 g/dL (12.9-16.9) L 04/24/18 01:34 Hct 36.7 % (37.5-50.1) L 04/24/18 01:34 PT 30.2 Seconds (9.4-12.1) H 04/24/18 01:34 Lipase 43 Units/L (11-82) 04/23/18 21:25 - ABG ABG results: PT/INR, D-dimer PT 30.2 Seconds (9.4-12.1) H 04/24/18 01:34 - Attending Attestation I have personally performed a face to face evaluation on this patient. I have reviewed and agree with the care plan. History and Exam by me shows: Pt seen at the bedside no more bloody bowel movements since in the hospital. Examination abdomen is benign no tenderness in the left lower quadrant. Assessment: Patient with lower GI bleed most probably diverticular. Patient also has factor V Leiden and is currently on Coumadin. Recommendation: As patient bleeding has stopped at this point we will just watch him. If further drop in his hemoglobin then we will consider colonoscopy.
[2018-04-24] MEDS ORDERED: *HR* Phytonadione 10 MG/ML AMPUL SQ ONE (14:42)
[2018-04-24] MEDS ORDERED: SODIUM CHLORIDE/NAHCO3/KCL/PEG 4,000 ML SOLN.RECON PO ONE (17:00)
[2018-04-24] MEDS: Insulin LISPRO 300 UNITS/3 ML VIAL SQ SCH (17:01)
[2018-04-24] MEDS ORDERED: Insulin LISPRO 300 UNITS/3 ML VIAL SQ SCH (21:00)
[2018-04-25 06:18] LABS: Basophils % 0.5 %; Eosinophils # 0.2 K/mcL (0.0-0.6); Eosinophils % 2.7 %; Hematocrit 37.8 % (37.5-50.1); Hemoglobin 12.4 g/dL (12.9-16.9); Immature Granulocytes % 0.4 % (0-4); Lymphocytes % 12.6 %; Mean Corpuscular HGB Conc 32.8 g/dL (31.6-35.5); Mean Corpuscular Hemoglobin 32.1 pg (28.0-33.3); Mean Corpuscular Volume 97.9 fL (83.0-100.0); Mean Platelet Volume 10.8 fL (9.4-12.4); Monocytes # 0.7 K/mcL (0.0-1.3); Monocytes % 8.2 %; Neutrophils # 6.3 K/mcL (1.6-8.9); Platelet Count 201 K/mcL (140-400); Red Blood Count 3.86 M/mcL (4.19-5.50); Red Cell Distribution Width 12.1 % (11.5-14.5); Segmented Neutrophils % 75.6 %
[2018-04-25 06:21] LABS: INR 2.3; Prothrombin Time 25.5 Seconds (9.4-12.1)
[2018-04-25 06:42] LABS: BUN/Creatinine Ratio 15 (6-26); Blood Urea Nitrogen 17 mg/dL (8-23); Carbon Dioxide 26 mEq/L (23-29); Chloride 109 mEq/L (98-107); Glucose 150 mg/dL (70-105); Osmolality,Calculated 294 (280-300); Potassium 4.2 mEq/L (3.5-5.1); Sodium 140 mEq/L (136-145); eGFR For Non-African Americans > 60 (> 60)
[2018-04-25] MEDS ORDERED: *HR* SitaGLIPtin 100 MG TABLET PO SCH (09:00)
[2018-04-25] MEDS ORDERED: *HR* SitaGLIPtin 25 MG TABLET PO SCH (09:00)
[2018-04-25] MEDS: Insulin LISPRO 300 UNITS/3 ML VIAL SQ SCH (09:16)
--- NOTE | 2018-04-25 09:55 | Internal Med Progress Note ---
Hospitalist Progress Note - Encounter Date of Encounter: 04/25/18 Time of Encounter: 09:53 - Subjective Interval History: Patient with history of multiple pulmonary embolism and DVT and on Coumadin , factor V Leiden deficiency, hypertension, high cholesterol, prostate cancer, CK D patient was admitted with GI bleed hemoglobin is stable he has been seen by GI and plan for colonoscopy this morning patient apparently ate breakfast and is unclear about the current plan for GI evaluation nurse il will call and clarify from the GI about the plan hemoglobin is stable stool is to formed stool with some blood in - Exam Vitals: Temp Pulse Resp BP Pulse Ox 97.9 F 52 16 107/56 96 04/25/18 07:00 04/25/18 07:00 04/25/18 07:00 04/25/18 07:00 04/25/18 07:00 Exam: Vitals: Reviewed General: Well-developed male lying comfortably in bed in no acute distress Skin: Warm and supple HEENT: Moist mucous membranes. No conjunctivae pallor. Neck: No lymphadenopathy. No JVD. No carotid bruits. No palpable thyroid. Chest: Normal thoracic expansion. Normal breath sounds. Clear to auscultation. Heart: Normal S1 & S2; rhythmic. No rubs or murmurs. Abdomen: Non-distended, soft and non-tender to palpation. Extremities: No clubbing, cyanosis or edema. No calf tenderness. Normal distal pulses. Neurological: Awake, alert and oriented to person, place and time. No focal deficits. Psych: Affect appropriate. 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 on chronic Coumadin therapy (2) HTN (hypertension) Current Visit: Yes Status: Chronic Assessment and Plan: Chronic and well controlled (3) HLD (hyperlipidemia) Current Visit: Yes Status: Chronic (4) History of prostate cancer Current Visit: No Status: Chronic (5) Hx of factor V Leiden mutation Current Visit: No Status: Chronic Assessment and Plan: On chronic Coumadin therapy (6) KRYSTEN (acute kidney injury) Current Visit: Yes Status: Resolved Assessment and Plan: Resolved (7) Lower gastrointestinal hemorrhage Current Visit: Yes Status: Resolved Assessment and Plan: GI consult and evaluation noted plan for colonoscopy this morning nurse will call to clarify the plan since patient had breakfast this morning - Time Spent with Patient Total time spent is greater than 50% in coordination of care (as documented) at patient's floor/unit and/or counseling patient: Internal Medicine: Result - Labs CBC & Chem 7: 04/25/18 05:31 04/25/18 05:31 Labs: Short CBC 04/25/18 Range/Units 05:31 WBC 8.3 (4.3-11.1) K/mcL Hgb 12.4 L (12.9-16.9) g/dL Hct 37.8 (37.5-50.1) % Plt Count 201 (140-400) K/mcL Neutrophils # 6.3 (1.6-8.9) K/mcL BMP 04/25/18 05:31 Sodium 140 Potassium 4.2 Chloride 109 H Carbon Dioxide 26 BUN 17 Creatinine 1.10 Glucose 150 H Calcium 9.0 - ABG Interpretation ABG results: PT/INR, D-dimer PT 25.5 Seconds (9.4-12.1) H 04/25/18 05:31 Consult Discharge Plan - Plan Referrals: Giovanni Morrow MD [Primary Care Provider] - (1) DVT (deep venous thrombosis) Qualifiers: DVT location: lower extremity Affected thrombotic vein of extremity: other lower extremity vein Chronicity: acute Laterality: right Qualified Code(s): I82.491 - Acute embolism and thrombosis of other specified deep vein of right lower extremity (2) HTN (hypertension) Qualifiers: Hypertension type: essential hypertension Qualified Code(s): I10 - Essential (primary) hypertension (3) HLD (hyperlipidemia) Qualifiers: Hyperlipidemia type: pure hypercholesterolemia Qualified Code(s): E78.00 - Pure hypercholesterolemia, unspecified; E78.0 - Pure hypercholesterolemia
[2018-04-25 15:07] VITALS: BP 107/57
--- NOTE | 2018-04-25 17:28 | Discharge Summary ---
Orders not resulted at time of discharge: Pending orders 04/26/18 04:00 CBC no Diff [Complete Blood Count w/o Diff] [HEME] AM 0400 Date of Encounter: 04/25/18 Time of Encounter: 17:26 - Discharge Diagnosis (1) DVT (deep venous thrombosis) Priority: Secondary Status: Acute Qualifiers: DVT location: lower extremity Affected thrombotic vein of extremity: other lower extremity vein Chronicity: acute Laterality: right Qualified Code(s) : I82.491 - Acute embolism and thrombosis of other specified deep vein of right lower extremity (2) HTN (hypertension) Priority: Secondary Status: Chronic Qualifiers: Hypertension type: essential hypertension Qualified Code(s): I10 - Essential (primary) hypertension (3) HLD (hyperlipidemia) Priority: Secondary Status: Chronic Qualifiers: Hyperlipidemia type: pure hypercholesterolemia Qualified Code(s): E78.00 - Pure hypercholesterolemia, unspecified; E78.0 - Pure hypercholesterolemia (4) History of prostate cancer Priority: Secondary Status: Chronic (5) Hx of factor V Leiden mutation Priority: Secondary Status: Chronic (6) KRYSTEN (acute kidney injury) Priority: Secondary Status: Resolved (7) Lower gastrointestinal hemorrhage Priority: Primary Status: Resolved Hospital course: Mr. Akbar is a 87 year old male - Time Spent with Patient Total time spent providing and/or coordinating discharge services: Greater than 30 minutes - Discharge Medications Home Medications: Losartan Potassium [Cozaar] 50 mg PO DAILY 06/05/17 [History] Simvastatin [Zocor] 20 mg PO HS 06/05/17 [History] Timolol [Betimol] 1 drop LEFT EYE DAILY 04/10/18 [History] Tizanidine HCl [Zanaflex] 2 mg PO DAILY PRN 04/10/18 [History] Warfarin Sodium 1.25 mg PO SUTUWEFRSA 04/10/18 [History] Warfarin Sodium 2.5 mg PO MOTH 04/10/18 [History] Albuterol Neb [Proventil Neb] 1 aerosol AER Q4H PRN 04/24/18 [History] Omeprazole [PriLOSEC] 20 mg PO DAILY 04/24/18 [History] SitaGLIPtin [Januvia] 100 mg PO DAILY 04/24/18 [History] Allergies/Adverse Reactions: 3 Allergy/AdvReac Type Severity Reaction Status Date / Time No Known Allergies Allergy Verified 04/10/18 11:08 Date of admission: 04/23/18 23:24 Primary care physician: Giovanni Morrow MD Consults: 04/24/18 03:00 Consult to Pastoral Services [CONS] Routine Comment: Discharging clinician: Kaila Valdes Anticipated date of discharge: 04/25/18 - Constitutional Vitals: Temp Pulse Resp BP Pulse Ox 98.0 F 58 16 107/57 96 04/25/18 15:06 04/25/18 15:06 04/25/18 15:06 04/25/18 15:06 04/25/18 15:06 Exam: Vitals: Reviewed General: Well-developed male lying comfortably in bed in no acute distress Skin: Warm and supple HEENT: Moist mucous membranes. No conjunctivae pallor. Neck: No lymphadenopathy. No JVD. No carotid bruits. No palpable thyroid. Chest: Normal thoracic expansion. Normal breath sounds. Clear to auscultation. Heart: Normal S1 & S2; rhythmic. No rubs or murmurs. Abdomen: Non-distended, soft and non-tender to palpation. Extremities: No clubbing, cyanosis or edema. No calf tenderness. Normal distal pulses. Neurological: Awake, alert and oriented to person, place and time. No focal deficits. Psych: Affect appropriate. - Patient Status Disposition: Home, Self-Care Functional capacity at discharge: independent ambulation Overall status at discharge: patient is progressing back to baseline - Discharge Instructions - Diet and Activity Activity: other Diet: advance to your usual diet
--- NOTE | 2018-04-25 21:55 | Event Note ---
Date of Encounter: 04/25/18 Time of Encounter: 15:00 Pt seen, no more rectal bleed. O/E abd soft. A: Pt LGI bleed due to diverticulosis Rec: No Colon, can be d/c home
--- NOTE | 2018-04-27 09:35 | Electrocardiograph Report ---
[place] [id number] Test Date: 2018-04-23 Pat Name: Deshaun Akbar Department: [id number] Room: 3A32 Gender: M [employer]: : 1930 Requested By: Benitez Cummings Order Number: [id number] Reading MD: Jonas Guevara Measurements Intervals Sherrill Rate: 61 P: 64 IL: 172 QRS: 81 QRSD: 161 T: 54 QT: 474 QTc: 478 Interpretive Statements Sinus rhythm Ventricular premature complex Right bundle branch block Electronically Signed On 04-27-2018 9:34:00 EDT by Jonas Guevara
== END 2018-04-25 18:22 | disposition home or self-care (01) ==
LOC: 3ANU 19:22 → EMEROOARM 19:22 → 3ANU 23:56
PROVIDERS: ADMIT Internal Medicine; ATTEND Internal Medicine

== ENCOUNTER 2019-03-24 19:12 | Inpatient (IN) ==
--- NOTE | 2019-03-24 20:55 | Emergency Department Note ---
Disposition Clinical Impression: Suprapubic abdominal pain Chest pain Qualifiers: Chest pain type: unspecified Qualified Code(s): R07.9 - Chest pain, unspecified Right-sided back pain Qualifiers: Back pain location: back pain in unspecified location Chronicity: unspecified Qualified Code(s): M54.9 - Dorsalgia, unspecified Disposition: Still a Patient Condition: Good Referrals: NONE,PCP [Non-Partnered Physician] - Forms: ED Satisfaction Letter Time of Disposition: 22:18 Male Urogenital HPI - General Chief complaint: ED Urogenital-Male Stated complaint: Urinary Symptoms, RATLIFF Time Seen by Provider: 03/24/19 20:07 Source: patient Mode of arrival: private vehicle Limitations: no limitations Nursing Notes Reviewed: Yes Vital Signs Reviewed: Yes - History of Present Illness HPI Narrative: 88-year-old male with a past medical history of kidney stones that presents for 3 days of suprapubic abdominal pain, urinary frequency, dysuria. He is also endorsing some right-sided lumbar back pain. He is also endorsing some fevers and chills. Additionally he is complaining of some chest pain which radiates across his chest. Patient states that is intermittent and he does not know what triggers it. He denies shortness of breath. He reports some left hand numbness which is chronic for him. He also reports some bilateral leg weakness which has started over the last 2-3 days. - Related Data Home Medications Medication Instructions Recorded Confirmed Losartan Potassium [Cozaar] 50 mg PO DAILY 06/05/17 03/24/19 Timolol [Betimol] 1 drop LEFT EYE DAILY 04/10/18 03/24/19 Warfarin Sodium 1.25 mg PO SUTUWEFRSA 04/10/18 03/24/19 Warfarin Sodium 2.5 mg PO MOTH 04/10/18 03/24/19 Omeprazole [PriLOSEC] 20 mg PO DAILY 04/24/18 03/24/19 Rosuvastatin Calcium [Crestor] 10 mg PO DAILY 03/24/19 03/24/19 metFORMIN [Glucophage] 500 mg PO BIDWM 03/24/19 03/24/19 Allergies Allergy/AdvReac Type Severity Reaction Status Date / Time No Known Allergies Allergy Verified 03/24/19 19:51 Review of Systems: In addition to that documented in the HPI above, the additional ROS was obtained: Constitutional: Reports fevers and chills Eyes: Denies vision changes ENMT: Denies sore throat CV: Reports intermittent chest pain Resp: Denies SOB GI: Denies vomiting or diarrhea Reports anorexia : Reports painful urination, urinary frequency MSK: Denies recent trauma Skin: Denies new rashes Neuro: Denies new numbness or tingling Reports chronic left hand numbness, reports new bilateral leg weakness Endocrine: Denies unexpected weight loss Heme: Denies bleeding disorders Past Medical History - Past Medical History Attestation: Yes The following information was validated with the patient. Medical history: Reports: cancer, DVT, hypertension Surgical history: Reports: herniorrhaphy Psychiatric history: Reports: no psych history - Social History Smoking Status: Never smoker Smokeless Tobacco Status: No Alcohol use: Reports: none Drug use: Reports: none Physical Exam General: No acute distress. Well developed, well nourished. Head: atraumatic, normocephalic. ENT: No conjunctival injection, no scleral icterus. PERRLA. EOMI. Oropharynx non- erythematous. mucous membranes dry. Neuro: No focal deficits, no speech deficit, no facial droop, mentating well. Pulm: Lungs CTAB A/P. No wheezes, rales, ronchi. Cardio: Rate is mostly normal with occasional extra beats. Chest not tender to palpation. Abd: Soft, non-distended. Normoactive bowel sounds. Tender to palpation in suprapubic area. No guarding. Non rigid. Back: Right sided lumbar back pain, not made worse with palpation Extremities: Radial pulses 2+ savanna, dorsalis pedis/posterior tibialis 2+ savanna. No LE edema. No cyanosis, clubbing. Skin: warm, dry, intact. No rashes. Psych: Appropriate mood and affect. Answers questions appropriately. Cooperative with exam. - General Limitations: no limitations General appearance: alert Course Vital Signs Temperature 98.3 F 03/24/19 19:51 Pulse Rate 91 03/24/19 19:51 Respiratory Rate 18 03/24/19 19:51 Blood Pressure 154/83 03/24/19 19:51 O2 Sat by Pulse Oximetry 98 03/24/19 19:51 Temperature 98.3 F 03/24/19 19:51 Pulse Rate 72 03/24/19 21:54 Respiratory Rate 16 03/24/19 21:54 Blood Pressure 152/80 03/24/19 21:54 O2 Sat by Pulse Oximetry 97 03/24/19 21:54 Oxygen Delivery Oxygen Delivery Room Air Urogenital-Male - MDM Narrative Medical decision making narrative: 2058:88-year-old male with past medical history of kidney stones and urinary tract infections that presents with fevers chills, suprapubic abdominal pain, chest pain, right-sided lumbar back pain, urinary frequency, dysuria, bilateral leg weakness. We will obtain CT of abdomen and pelvis to rule out kidney stone or other intra-abdominal pathology. We will obtain UA to check for signs of infection. We will also do a septic workup to include blood cultures, lactic acid. Suspect the patient will be admitted. Pt was signed out to Dr. Ashley Arrington, please see her note for results of the workup and disposition. - Medical Records Medical records reviewed: Yes I reviewed the patient's medical records. - Lab Data Lab results reviewed: Yes I reviewed the patient's lab results. Result diagrams: 03/24/19 20:57 03/24/19 20:57 Lab Results 03/24/19 03/24/19 03/24/19 Range/Units 20:44 20:57 20:57 WBC 9.3 (4.3-11.1) K/mcL RBC 4.40 (4.19-5.50) M/mcL Hgb 13.8 (12.9-16.9) g/dL Hct 41.9 (37.5-50.1) % MCV 95.2 (83.0-100.0) fL MCH 31.4 (28.0-33.3) pg MCHC 32.9 (31.6-35.5) g/dL RDW 12.5 (11.5-14.5) % Plt Count 205 (140-400) K/mcL MPV 10.5 (9.4-12.4) fL Immature Gran % 0.6 (0-4) % Seg Neutrophils % 76.5 % Lymphocytes % 13.5 % Monocytes % 8.1 % Eosinophils % 0.8 % Basophils % 0.5 % Neutrophils # 7.1 (1.6-8.9) K/mcL Lymphocytes # 1.3 (0.6-4.6) K/mcL Monocytes # 0.8 (0.0-1.3) K/mcL Eosinophils # 0.1 (0.0-0.6) K/mcL Basophils # 0.1 (0.0-0.2) K/mcL Sodium 135 L (136-145) mEq/L Potassium 4.1 (3.5-5.1) mEq/L Chloride 102 (98-107) mEq/L Carbon Dioxide 22 L (23-29) mEq/L BUN 22 (8-23) mg/dL Creatinine 1.19 (0.70-1.30) mg/dL Est GFR ( Amer) > 60 (> 60) Est GFR (Non-Af Amer) 58 L (> 60) BUN/Creatinine Ratio 18 (6-26) Glucose 128 H (70-105) mg/dL Calculated Osmolality 285 (280-300) Lactic Acid (0.5-2.2) mmol/L Calcium 9.6 (8.6-10.3) mg/dL Troponin I (< 0.04) ng/mL Lipase (11-82) Units/L Urine Color Yellow (Yellow) Urine Clarity Clear (Clear) Urine pH 6.0 (5.0-8.0) pH Units Ur Specific Kimberly 1.019 (1.010-1.025) Urine Protein Negative (Neg-Trace) mg/dL Urine Glucose (UA) Normal (Normal) mg/dL Urine Ketones Negative (Negative) mg/dL Urine Blood Negative (Negative) Urine Nitrite Negative (Negative) Urine Bilirubin Negative (Negative) Urine Urobilinogen Normal (Normal) mg/dL Ur Leukocyte Esterase Negative (Negative) Ur Culture Indicated? NO (NO) 03/24/19 03/24/19 03/24/19 Range/Units 21:23 21:23 21:23 WBC (4.3-11.1) K/mcL RBC (4.19-5.50) M/mcL Hgb (12.9-16.9) g/dL Hct (37.5-50.1) % MCV (83.0-100.0) fL MCH (28.0-33.3) pg MCHC (31.6-35.5) g/dL RDW (11.5-14.5) % Plt Count (140-400) K/mcL MPV (9.4-12.4) fL Immature Gran % (0-4) % Seg Neutrophils % % Lymphocytes % % Monocytes % % Eosinophils % % Basophils % % Neutrophils # (1.6-8.9) K/mcL Lymphocytes # (0.6-4.6) K/mcL Monocytes # (0.0-1.3) K/mcL Eosinophils # (0.0-0.6) K/mcL Basophils # (0.0-0.2) K/mcL Sodium (136-145) mEq/L Potassium (3.5-5.1) mEq/L Chloride (98-107) mEq/L Carbon Dioxide (23-29) mEq/L BUN (8-23) mg/dL Creatinine (0.70-1.30) mg/dL Est GFR ( Amer) (> 60) Est GFR (Non-Af Amer) (> 60) BUN/Creatinine Ratio (6-26) Glucose (70-105) mg/dL Calculated Osmolality (280-300) Lactic Acid 1.2 (0.5-2.2) mmol/L Calcium (8.6-10.3) mg/dL Troponin I 0.03 (< 0.04) ng/mL Lipase 28 (11-82) Units/L Urine Color (Yellow) Urine Clarity (Clear) Urine pH (5.0-8.0) pH Units Ur Specific Kimberly (1.010-1.025) Urine Protein (Neg-Trace) mg/dL Urine Glucose (UA) (Normal) mg/dL Urine Ketones (Negative) mg/dL Urine Blood (Negative) Urine Nitrite (Negative) Urine Bilirubin (Negative) Urine Urobilinogen (Normal) mg/dL Ur Leukocyte Esterase (Negative) Ur Culture Indicated? (NO) - EKG Data EKG attestation: Yes I reviewed and interpreted this EKG. EKG results narrative: Rate 92, rhythm sinus, axis right. MT 167, QRS 142 and prolonged, QTC 407. Right bundle branch noted which is also noted on previous EKG dated 12/12/18. No significant ST elevation or depression. Attestation Statement - Attestation Attestation: I, Gabino Arrington, examined this patient and my medical decision-making was reviewed with the PATIENT FINANCIAL SERVICES SPECIALIST/PA/Advanced Practice Nurse/Resident Physician. I agree with the documented findings, disposition and treatment plan as described except to the extent set forth below. 88-year-old male presents emergency Department with multiple complaints. His main concerns during my evaluation her chest pain that radiates to his abdomen, weakness, fatigue. Patient denies hematochezia, hematemesis, melena. No recent trauma. Patient denies fever, chills, vomiting, recent trauma. Patient reports that he has had dysuria and increased urinary frequency. Initial laboratory evaluation did not show evidence of acute abnormality. EKG did not show evidence of STEMI. I reviewed the EKG with the resident and agree with the interpretation. Patient signed out to Dr. Greco pending CT scan to evaluate for possible dissection, reevaluation and disposition.
[2019-03-24 21:00] LABS: Bilirubin,Urine Negative (Negative); Blood,Urine Negative (Negative); Clarity,Urine Clear (Clear); Color,Urine Yellow (Yellow); Glucose,Urine (UA) Normal (Normal); Ketones,Urine Negative (Negative); Leukocyte Esterase,Urine Negative (Negative); Nitrite,Urine Negative (Negative); Protein,Urine Negative (Neg-Trace); Specific Gravity,Urine 1.019 (1.010-1.025); Urobilinogen,Urine Normal (Normal)
[2019-03-24] MEDS ORDERED: Isovue-370 500 ML BOTTLE IVP ONE (21:13)
[2019-03-24 21:33] LABS: Basophils # 0.1 K/mcL (0.0-0.2); Basophils % 0.5 %; Eosinophils # 0.1 K/mcL (0.0-0.6); Eosinophils % 0.8 %; Hematocrit 41.9 % (37.5-50.1); Hemoglobin 13.8 g/dL (12.9-16.9); Immature Granulocytes % 0.6 % (0-4); Lymphocytes # 1.3 K/mcL (0.6-4.6); Lymphocytes % 13.5 %; Mean Corpuscular HGB Conc 32.9 g/dL (31.6-35.5); Mean Corpuscular Hemoglobin 31.4 pg (28.0-33.3); Mean Corpuscular Volume 95.2 fL (83.0-100.0); Mean Platelet Volume 10.5 fL (9.4-12.4); Monocytes # 0.8 K/mcL (0.0-1.3); Monocytes % 8.1 %; Neutrophils # 7.1 K/mcL (1.6-8.9); Platelet Count 205 K/mcL (140-400); Red Cell Distribution Width 12.5 % (11.5-14.5); Segmented Neutrophils % 76.5 %; White Blood Count 9.3 K/mcL (4.3-11.1)
[2019-03-24 21:53] LABS: BUN/Creatinine Ratio 18 (6-26); Blood Urea Nitrogen 22 mg/dL (8-23); Calcium 9.6 mg/dL (8.6-10.3); Carbon Dioxide 22 mEq/L (23-29); Chloride 102 mEq/L (98-107); Glucose 128 mg/dL (70-105); Osmolality,Calculated 285 (280-300); Potassium 4.1 mEq/L (3.5-5.1); Sodium 135 mEq/L (136-145); eGFR For African Americans > 60 (> 60); eGFR For Non-African Americans 58 (> 60)
[2019-03-24 22:37] LABS: INR 2.3; Prothrombin Time 26.6 Seconds (9.4-12.1)
--- NOTE | 2019-03-24 23:57 | Emergency Department Note ---
Disposition Clinical Impression: Suprapubic abdominal pain Chest pain Qualifiers: Chest pain type: unspecified Qualified Code(s): R07.9 - Chest pain, unspecified Right-sided back pain Qualifiers: Back pain location: back pain in unspecified location Chronicity: unspecified Qualified Code(s): M54.9 - Dorsalgia, unspecified Disposition: Still a Patient Condition: Good Referrals: NONE,PCP [Non-Partnered Physician] - Forms: ED Satisfaction Letter Time of Disposition: 23:57 General Adult HPI - General Chief complaint: ED Urogenital-Male Stated complaint: Urinary Symptoms, RATLIFF Time Seen by Provider: 03/24/19 20:07 Source: patient Mode of arrival: private vehicle Limitations: no limitations - History of Present Illness Pain Scale: 5 - Related Data Home Medications Medication Instructions Recorded Confirmed Losartan Potassium [Cozaar] 50 mg PO DAILY 06/05/17 03/24/19 Timolol [Betimol] 1 drop LEFT EYE DAILY 04/10/18 03/24/19 Warfarin Sodium 1.25 mg PO SUTUWEFRSA 04/10/18 03/24/19 Warfarin Sodium 2.5 mg PO MOTH 04/10/18 03/24/19 Omeprazole [PriLOSEC] 20 mg PO DAILY 04/24/18 03/24/19 Rosuvastatin Calcium [Crestor] 10 mg PO DAILY 03/24/19 03/24/19 metFORMIN [Glucophage] 500 mg PO BIDWM 03/24/19 03/24/19 Allergies Allergy/AdvReac Type Severity Reaction Status Date / Time No Known Allergies Allergy Verified 03/24/19 19:51 Past Medical History - Past Medical History Medical history: Reports: cancer, DVT, hypertension Surgical history: Reports: herniorrhaphy Psychiatric history: Reports: no psych history - Social History Smoking Status: Never smoker Smokeless Tobacco Status: No Alcohol use: Reports: none Drug use: Reports: none Physical Exam - General Limitations: no limitations General appearance: alert Course Vital Signs Temperature 98.3 F 03/24/19 19:51 Pulse Rate 91 03/24/19 19:51 Respiratory Rate 18 03/24/19 19:51 Blood Pressure 154/83 03/24/19 19:51 O2 Sat by Pulse Oximetry 98 03/24/19 19:51 Temperature 98.3 F 03/24/19 19:51 Pulse Rate 69 03/24/19 23:05 Respiratory Rate 17 03/24/19 23:05 Blood Pressure 153/77 03/24/19 23:05 O2 Sat by Pulse Oximetry 100 03/24/19 23:05 Oxygen Delivery Oxygen Delivery Room Air Medical Decision Making - MDM Narrative Medical decision making narrative: I received this patient in signout, to follow up on CT scan of the chest abdomen pelvis, showed no evidence of acute intra-abdominal or intrathoracic process as interpreted by radiology. Original plan was for this patient admitted for observation, the patient was agreeable to this plan. On repeat exam he remains alert awake and talking, no meningeal signs, cranial nerves are intact abdomen is soft and nontender, no focal neurologic findings. He requested Tylenol for his body aches which she was given I did add on a flu swab for his reported body aches. Had reviewed his chart initially I saw a stre ss test from last year that showed no abnormality, but reviewing the chart with the hospitalist he did have a stress test in November of this year which showed a possible reversible defect and it does not appear he underwent further evaluation of this, he was admitted to the hospital for further evaluation and management of chest pain generalized weakness and malaise and body aches and back pain. - Lab Data Result diagrams: 03/24/19 20:57 03/24/19 20:57 Lab Results 03/24/19 03/24/19 03/24/19 Range/Units 20:44 20:57 20:57 WBC 9.3 (4.3-11.1) K/mcL RBC 4.40 (4.19-5.50) M/mcL Hgb 13.8 (12.9-16.9) g/dL Hct 41.9 (37.5-50.1) % MCV 95.2 (83.0-100.0) fL MCH 31.4 (28.0-33.3) pg MCHC 32.9 (31.6-35.5) g/dL RDW 12.5 (11.5-14.5) % Plt Count 205 (140-400) K/mcL MPV 10.5 (9.4-12.4) fL Immature Gran % 0.6 (0-4) % Seg Neutrophils % 76.5 % Lymphocytes % 13.5 % Monocytes % 8.1 % Eosinophils % 0.8 % Basophils % 0.5 % Neutrophils # 7.1 (1.6-8.9) K/mcL Lymphocytes # 1.3 (0.6-4.6) K/mcL Monocytes # 0.8 (0.0-1.3) K/mcL Eosinophils # 0.1 (0.0-0.6) K/mcL Basophils # 0.1 (0.0-0.2) K/mcL PT (9.4-12.1) Seconds INR Sodium 135 L (136-145) mEq/L Potassium 4.1 (3.5-5.1) mEq/L Chloride 102 (98-107) mEq/L Carbon Dioxide 22 L (23-29) mEq/L BUN 22 (8-23) mg/dL Creatinine 1.19 (0.70-1.30) mg/dL Est GFR ( Amer) > 60 (> 60) Est GFR (Non-Af Amer) 58 L (> 60) BUN/Creatinine Ratio 18 (6-26) Glucose 128 H (70-105) mg/dL Calculated Osmolality 285 (280-300) Lactic Acid (0.5-2.2) mmol/L Calcium 9.6 (8.6-10.3) mg/dL Troponin I (< 0.04) ng/mL Lipase (11-82) Units/L Urine Color Yellow (Yellow) Urine Clarity Clear (Clear) Urine pH 6.0 (5.0-8.0) pH Units Ur Specific Gilchrist 1.019 (1.010-1.025) Urine Protein Negative (Neg-Trace) mg/dL Urine Glucose (UA) Normal (Normal) mg/dL Urine Ketones Negative (Negative) mg/dL Urine Blood Negative (Negative) Urine Nitrite Negative (Negative) Urine Bilirubin Negative (Negative) Urine Urobilinogen Normal (Normal) mg/dL Ur Leukocyte Esterase Negative (Negative) Ur Culture Indicated? NO (NO) 03/24/19 03/24/19 03/24/19 Range/Units 20:57 21:23 21:23 WBC (4.3-11.1) K/mcL RBC (4.19-5.50) M/mcL Hgb (12.9-16.9) g/dL Hct (37.5-50.1) % MCV (83.0-100.0) fL MCH (28.0-33.3) pg MCHC (31.6-35.5) g/dL RDW (11.5-14.5) % Plt Count (140-400) K/mcL MPV (9.4-12.4) fL Immature Gran % (0-4) % Seg Neutrophils % % Lymphocytes % % Monocytes % % Eosinophils % % Basophils % % Neutrophils # (1.6-8.9) K/mcL Lymphocytes # (0.6-4.6) K/mcL Monocytes # (0.0-1.3) K/mcL Eosinophils # (0.0-0.6) K/mcL Basophils # (0.0-0.2) K/mcL PT 26.6 H (9.4-12.1) Seconds INR 2.3 Sodium (136-145) mEq/L Potassium (3.5-5.1) mEq/L Chloride (98-107) mEq/L Carbon Dioxide (23-29) mEq/L BUN (8-23) mg/dL Creatinine (0.70-1.30) mg/dL Est GFR ( Amer) (> 60) Est GFR (Non-Af Amer) (> 60) BUN/Creatinine Ratio (6-26) Glucose (70-105) mg/dL Calculated Osmolality (280-300) Lactic Acid 1.2 (0.5-2.2) mmol/L Calcium (8.6-10.3) mg/dL Troponin I (< 0.04) ng/mL Lipase 28 (11-82) Units/L Urine Color (Yellow) Urine Clarity (Clear) Urine pH (5.0-8.0) pH Units Ur Specific Gilchrist (1.010-1.025) Urine Protein (Neg-Trace) mg/dL Urine Glucose (UA) (Normal) mg/dL Urine Ketones (Negative) mg/dL Urine Blood (Negative) Urine Nitrite (Negative) Urine Bilirubin (Negative) Urine Urobilinogen (Normal) mg/dL Ur Leukocyte Esterase (Negative) Ur Culture Indicated? (NO) 03/24/19 Range/Units 21:23 WBC (4.3-11.1) K/mcL RBC (4.19-5.50) M/mcL Hgb (12.9-16.9) g/dL Hct (37.5-50.1) % MCV (83.0-100.0) fL MCH (28.0-33.3) pg MCHC (31.6-35.5) g/dL RDW (11.5-14.5) % Plt Count (140-400) K/mcL MPV (9.4-12.4) fL Immature Gran % (0-4) % Seg Neutrophils % % Lymphocytes % % Monocytes % % Eosinophils % % Basophils % % Neutrophils # (1.6-8.9) K/mcL Lymphocytes # (0.6-4.6) K/mcL Monocytes # (0.0-1.3) K/mcL Eosinophils # (0.0-0.6) K/mcL Basophils # (0.0-0.2) K/mcL PT (9.4-12.1) Seconds INR Sodium (136-145) mEq/L Potassium (3.5-5.1) mEq/L Chloride (98-107) mEq/L Carbon Dioxide (23-29) mEq/L BUN (8-23) mg/dL Creatinine (0.70-1.30) mg/dL Est GFR ( Amer) (> 60) Est GFR (Non-Af Amer) (> 60) BUN/Creatinine Ratio (6-26) Glucose (70-105) mg/dL Calculated Osmolality (280-300) Lactic Acid (0.5-2.2) mmol/L Calcium (8.6-10.3) mg/dL Troponin I 0.03 (< 0.04) ng/mL Lipase (11-82) Units/L Urine Color (Yellow) Urine Clarity (Clear) Urine pH (5.0-8.0) pH Units Ur Specific Gilchrist (1.010-1.025) Urine Protein (Neg-Trace) mg/dL Urine Glucose (UA) (Normal) mg/dL Urine Ketones (Negative) mg/dL Urine Blood (Negative) Urine Nitrite (Negative) Urine Bilirubin (Negative) Urine Urobilinogen (Normal) mg/dL Ur Leukocyte Esterase (Negative) Ur Culture Indicated? (NO)
[2019-03-25] MEDS ORDERED: Acetaminophen 325 MG TABLET PO PRN (03:08)
[2019-03-25] MEDS ORDERED: Ondansetron 4 MG/2 ML VIAL IVP PRN (03:08)
[2019-03-25] MEDS ORDERED: Naloxone 0.4 MG/ML INJ IVP PRN (03:08)
[2019-03-25] MEDS ORDERED: 0.9 % Sodium Chloride 1,000 ML IVC SCH (03:15)
[2019-03-25] MEDS ORDERED: D5% in Water 1,000 ML IVC PRN (03:15)
[2019-03-25] MEDS ORDERED: *HR* Dextrose 50 % in Water (Syg) 50 ML SYRINGE IVP PRN (03:15)
[2019-03-25] MEDS ORDERED: Dextrose Gel 15 GM/37.5 ML TUBE PO PRN ×2 (03:15)
[2019-03-25] MEDS ORDERED: Nitroglycerin 0.4 MG TAB.SUBL SL PRN (03:15)
--- NOTE | 2019-03-25 03:36 | Internal Med History&Physical ---
Date of Encounter: 03/25/19 Time of Encounter: 02:15 Internal Medicine - H&P: HPI Chief complaint: CP/SOB/Weakness Admitted From: Emergency Dept Plans for Post Hospital Care: Home History of present illness: Mr. 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 Patient reports feeling unwell and having some back pain which has resolved. Patient describes CP as pressure in the central chest w/o radiation and intermittent. Alleviated w/rest. No aggravating factors. Patient has hx of abnormal nuclear stress test on 12/12/18. Last Echo was 04/10/18 which showed LVEF of 55%, mild left ventricular diastolic dysfunction, normal right ventricular structure and function, mild tricuspid regurgitation, no pulmonary hypertension, and mildly dilated proximal ascending thoracic aorta at 3.8 cm. Patient reports fever, chills, weakness, CP, SOB, and back pain but denies sick contacts, recent illness, headache, changes in vision, unusual bleeding, abdominal pain, diarrhea, constipation, dizziness, lightheadedness, pre-syncope, or syncope. Past Med Surg Social Fam HX - Past Medical History Source: patient, old records reviewed Medical history: cancer (Prostate), DVT, diabetes, hyperlipidemia, hypertension Additional medical history: prostate cancer with seeds, filter , current blod clots Psychiatric history: no psych history - Past Surgical History Surgical History: herniorrhaphy Additional surgical history: Radiation seeds (118) 2009 - Social History Smoking Status: Never smoker Smokeless Tobacco Status: No Alcohol use: none Drug use: none Current living situation: Home Activity Level: Uses cane/walker Recent Out of Country Travel Within the Last 8 Weeks: No Exposure or Possible Exposure to Illness During Travel: No - Family History Son Race: Family Member Ethnicity: Non- Living Status: Still Living Hx Family Cardiac Disorders: Yes (Son had 5 stents placed) Father Race: Family Member Ethnicity: Non- Living Status: Age at : 82 Cause of : CVA Hx Family Cardiac Disorders: Yes (CVA) Hx Family Neurologic Disorders: Yes (CVA) Mother Race: Family Member Ethnicity: Non- Living Status: Age at : 69 Cause of : Complications from DM Hx Family Cardiac Disorders: Yes (CAD, HTN) Hx Family Endocrine Disorder: Yes (DM) Brother Race: Family Member Ethnicity: Non- Living Status: Age at : 73 Cause of : [place] Hx Family Cardiac Disorders: Yes ([place], HTN, CAD) Sister Race: Family Member Ethnicity: Non- Living Status: Still Living Hx Family Cardiac Disorders: Yes (CVA x3) Hx Family Musculoskeletal Disorders: Yes (hip replaced) Hx Family Neurologic Disorders: Yes (CVAs) Daughter Race: Family Member Ethnicity: Non- Living Status: Hx Family Endocrine Disorder: Yes (DM) Internal Medicine - H&P: Meds Losartan Potassium [Cozaar] 50 mg PO DAILY 06/05/17 [History] Timolol [Betimol] 1 drop LEFT EYE DAILY 04/10/18 [History] Warfarin Sodium 1.25 mg PO SUTUWEFRSA 04/10/18 [History] Warfarin Sodium 2.5 mg PO MOTH 04/10/18 [History] Omeprazole [PriLOSEC] 20 mg PO BID 04/24/18 [History] Rosuvastatin Calcium [Crestor] 10 mg PO DAILY 03/24/19 [History] metFORMIN [Glucophage] 500 mg PO BIDWM 03/24/19 [History] Allergy/AdvReac Type Severity Reaction Status Date / Time No Known Allergies Allergy Verified 03/24/19 19:51 All Systems PM: A 10-system review of systems was performed and is negative for pertinent f indings except as documented above in the HPI. - Constitutional Constitutional: as per HPI, weakness, no chills, no fever(s), no night sweats - EENT Eyes: as per HPI, blurry vision (Left eye d/t glaucoma), no change in vision, no discharge, no pain, no photophobia Ears: no ear discharge, no ear pain, no tinnitus Nose, mouth and throat: no dysphagia, no nasal discharge, no neck pain, no sore throat - Breasts Breasts: as per HPI - Cardiovascular Cardiovascular ROS IM: as per HPI, chest pain, dyspnea, dyspnea on exertion, no diaphoresis, no lightheadedness, no palpitations, no syncope - Respiratory Respiratory: as per HPI, dyspnea, dyspnea on exertion, no cough, no wheezing, no excessive phlegm production - Gastrointestinal Gastrointestinal: no abdominal pain, no diarrhea, no hematemesis, no hematochezia, no melena, no nausea, no vomiting - Genitourinary Genitourinary ROS male: as per HPI - Musculoskeletal Musculoskeletal ROS IM: no numbness, no tingling - Integumentary Integumentary IM: no rash, no unusual bruising - Neurological Neurological ROS: as per HPI, weakness, no confusion, no convulsions, no focal weakness, no numbness, no tingling, no tremor(s) - Psychiatric Psychiatric: as per HPI - Endocrine Endocrine IM: as per HPI - Hematologic/Lymphatic Hematologic/Lymphatic: no easy bruising - Allergic/Immunologic Allergic/Immunologic: as per HPI - Constitutional Vitals: Temp Pulse Resp BP Pulse Ox 99.0 F 66 16 132/78 94 03/25/19 02:06 03/25/19 02:06 03/25/19 02:06 03/25/19 02:06 03/25/19 02:06 General appearance: Present: cooperative, A&O X 3, pleasant, no acute distress, answers questions appropriately Exam: Patient examined at bedside. Patient was resting comfortably. Stated that his back pain had resolved and he currently has no CP. States he still has mild SOB, but he wears 2L O2 via NC at night. Patient denies any other sx or complaints on exam. VS: 99.0F temp, HR 66, RR 16, BP 132/78, SPO2 94% on room air. - Head Head exam: Present: atraumatic, normocephalic - Eye Eye exam: Present: PERRL, conjuntiva pink, sclera anicteric Pupils: Present: PERRL - ENT ENT exam: Present: normal exam - Neck Neck exam general surgery: Present: normal inspection, supple, trachea midline. Absent: lymphadenopathy - Respiratory Respiratory exam: Present: CTAB. Absent: accessory muscle use, rales, rhonchi, wheezes - Cardiovascular Cardiovascular exam: Present: RRR, +S1, +S2. Absent: diastolic murmur, gallop, rubs, systolic murmur - GI/Abdominal GI/Abdominal exam: Present: normal bowel sounds, soft, no peritoneal signs. Absent: distended, tenderness - Rectal Rectal exam: Present: deferred - Additional comments: exam deferred. - Extremities Exam Extremities exam: Present: warm, radial pulses palpable and symmetrical. Absent: calf tenderness, cyanotic, pedal edema - Back Exam Back exam: Present: normal inspection - Neurological Exam Neurological exam: Present: alert, CN II-XII intact, oriented X3, no focal deficits. Absent: pronater drift, facial droop, speech deficit - Psychiatric Psychiatric exam: Present: normal affect, normal mood - Skin Skin exam: Present: dry, intact Internal Med - H&P Results - Labs CBC & Chem 7: 03/24/19 20:57 03/24/19 20:57 Labs: Short CBC 03/24/19 Range/Units 20:57 WBC 9.3 (4.3-11.1) K/mcL Hgb 13.8 (12.9-16.9) g/dL Hct 41.9 (37.5-50.1) % Plt Count 205 (140-400) K/mcL Neutrophils # 7.1 (1.6-8.9) K/mcL BMP 03/24/19 20:57 Sodium 135 L Potassium 4.1 Chloride 102 Carbon Dioxide 22 L BUN 22 Creatinine 1.19 Glucose 128 H Calcium 9.6 Cardiac Enzymes 03/24/19 Range/Units 21:23 Troponin I 0.03 (< 0.04) ng/mL Urine 03/24/19 Range/Units 20:44 Urine Color Yellow (Yellow) Urine Clarity Clear (Clear) Urine pH 6.0 (5.0-8.0) pH Units Ur Specific [place] 1.019 (1.010-1.025) Urine Protein Negative (Neg-Trace) mg/dL Urine Glucose (UA) Normal (Normal) mg/dL - EKG Data EKG shows normal: sinus rhythm - EKG Data Prior EKG available for review: no EKG comments: 03/25/19 03:50 EKG dated 03/24/19 shows sinus rhythm with marked right axis deviation and RBBB. - Impressions ITS Impressions Chest X-Ray 03/24/19 19:54 IMPRESSION: Chronic findings in the chest without acute airspace disease identified. D/ / Balbir Romero / Balbir Romero Interpreting Provider: Balbir Romero Dissection 03/24/19 21:13 IMPRESSION: No acute aortic pathology. No aneurysm, intramural hematoma, or dissection. No focal airspace consolidation or acute intrathoracic pathology. 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 A neoplastic process is not entirely excluded. Please correlate with any history of neoplastic process. D/ /24/2019 23:00:50 Xavier Ontiveros / silvino Interpreting Provider: Xavier Ontiveros - Diagnostic Studies CT scan - chest Additional comments: Impressions CT Dissection 03/24/19 21:13 IMPRESSION: No acute aortic pathology. No aneurysm, intramural hematoma, or dissection. No focal airspace consolidation or acute intrathoracic pathology. 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 A neoplastic process is not entirely excluded. Please correlate with any history of neoplastic process. D/ : / 03/24/2019 23:00:50 Xavier Ontiveros / silvino Interpreting Provider: Xavier Ontiveros Chest x-ray Additional comments: Impressions Chest X-Ray 03/24/19 19:54 IMPRESSION: Chronic findings in the chest without acute airspace disease identified. D/ / Balbir Romero / Balbir Romero Interpreting Provider: Balbir Romero - Assessment and Plan (1) Chest pain Current Visit: Yes Status: Acute Assessment and plan: Acute CP, SOB, and weakness for the past several days. Patient reports feeling unwell and having some back pain which has resolved. Patient describes CP as pressure in the central chest w/o radiation and intermittent. Alleviated w/rest. No aggravating factors. Patient has hx of abnormal nuclear stress test on 12/12/18 that showed perfusion imaging was positive for ischemia. There is a small sized reversible perfusion defect which is mild intensity in the apical lateral segment. SDS equals 4. Pharmacologic ECG was negative for ischemia at the level of heart rate achieved. Patient had chest pain with stress. Gated EF equals 65%. Last Echo was 04/10/18 which showed LVEF of 55%, mild left ventricular diastolic dysfunction, normal right ventricular structure and function, mild tricuspid regurgitation, no pulmonary hypertension, and mildly dilated proximal ascending thoracic aorta at 3.8 cm. Initial troponin <0.03. Trending. Pt. on Coumadin for DVT hx and Factor V Leiden. Nitro SL PRN. EKG esmer ws sinus rhythm with marked right axis deviation and RBBB. Echocardiogram ordered. No nuclear stress ordered yet d/t Coumadin use. Cardiology consult ordered but not confirmed d/t time of night placed. A.M. Hospitalist to f/u and confirm consult. Consult ordered d/t pts. hx of abnormal stress and current unstable angina. Patient is high risk for cardiac event and further morbidity d/t current unstable angina, hx of abnormal stress in November 2018, hx of bilateral DVTs, hx of Factor V Leiden on Coumadin, familial hx of CAD/NM; and risk factors of DM, HTN, HLD. Observation. Qualifiers: Chest pain type: other chest pain Qualified Code(s): R07.89 - Other chest pain; R07.8 - Other chest pain (2) SOB (shortness of breath) Current Visit: Yes Status: Acute Assessment and plan: Acute on chronic SOB. Pt. reports wearing O2 at night @ 2L via NC. Supplemental O2 w/titration and SpO2 monitoring. Will add breathing txs if warranted. (3) KRYSTEN (acute kidney injury) Current Visit: Yes Status: Acute Assessment and plan: KRYSTEN w/creatinine of 1.19 and GFR of 58. Will use IV fluids judiciously. Strict I&O. Monitor pt. and f/u labs. (4) Weakness Current Visit: Yes Status: Acute Assessment and plan: Acute weakness and feeling unwell. Swab for flu A & B negative. Stat respiratory infection panel ordered. CXR shows cardiac and mediastinal contours are unchanged in appearance. Chronic appearing left basilar opacity and blunting of the left costophrenic angle. No new airspace disease, pneumothorax, or evidence for edema. 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 No acute osseous abnormality identified. Falls/safety precautions. Up with assist only. Nutrition consult for PO supplementation. (5) Hyponatremia Current Visit: Yes Status: Acute Assessment and plan: Acute mild hyponatremia w/sodium of 135 on admission. 0.9 IV fluids at 50 mls/hr. Monitor pt. and f/u labs. Sodium re-check ordered for 08:00. (6) HTN (hypertension) Current Visit: Yes Status: Chronic Assessment and plan: Hx of chronic HTN. Monitor pt. and VS. Continue pts. Cozaar. Qualifiers: Hypertension type: essential hypertension Qualified Code(s): I10 - Essential (primary) hypertension (7) HLD (hyperlipidemia) Current Visit: Yes Status: Chronic Assessment and plan: Hx of chronic HLD. Lipid panel in a.m. labs. Continue pts. Lipitor. Qualifiers: Hyperlipidemia type: pure hypercholesterolemia Qualified Code(s): E78.00 - Pure hypercholesterolemia, unspecified; E78.0 - Pure hypercholesterolemia (8) Anticoagulated on Coumadin Current Visit: Yes Status: Chronic Assessment and plan: Hx of DVTs in bilateral LEs and Factor V Leiden. Continue pts. Coumadin w/Pharmacy dosing if no stress testing. (9) Hx of deep venous thrombosis Current Visit: Yes Status: Chronic Assessment and plan: Hx of DVT in bilateral LEs. Dopplers of bilateral LEs ordered. Will continue pts. Coumadin w/Pharmacy if no stress testing. (10) Hx of factor V Leiden mutation Current Visit: Yes Status: Chronic Assessment and plan: Hx of chronic Factor V Leiden. Continue pts. Coumadin w/Pharmacy dosing if no stress testing. Monitor pt. for signs of bleeding. 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 Continue patient's Betimol drops. Qualifiers: Glaucoma type: unspecified Qualified Code(s): H40.9 - Unspecified glaucoma (12) Prostate cancer Current Visit: Yes Status: Chronic Assessment and plan: Hx of chronic prostate cancer. Radioactive seed therapy used. Monitor w/Oncology as scheduled as OP. (13) DVT prophylaxis Current Visit: Yes Status: Acute Assessment and plan: Will continue pts. Coumadin for DVT prophylaxis if no stress testing. - Time Spent With Patient Total time spent is greater than 50% in coordination of care (as documented) at patient's floor/unit and/or counseling patient: Greater than 35 minutes
[2019-03-25 04:43] LABS: Adenovirus Not Detected (Not Detect); Bordetella Pertussis Not Detected (Not Detect); Chlamydophila pneumoniae Not Detected (Not Detect); Coronavirus 229E Not Detected (Not Detect); Coronavirus HKU1 Not Detected (Not Detect); Coronavirus NL63 Not Detected (Not Detect); Coronavirus OC43 Not Detected (Not Detect); Human Metapneumovirus Not Detected (Not Detect); Human Rhinovirus/Enterovirus Not Detected (Not Detect); Influenza A Subtype 2009 H1 Not Detected (Not Detect); Influenza A Untypeable Not Detected (Not Detect); Influenza B Not Detected (Not Detect); Mycoplasma pneumoniae Not Detected (Not Detect); Parainfluenza Virus 1 Not Detected (Not Detect); Parainfluenza Virus 2 Not Detected (Not Detect); Parainfluenza Virus 3 Not Detected (Not Detect); Parainfluenza Virus 4 Not Detected (Not Detect); Respiratory Syncytial Virus Not Detected (Not Detect)
[2019-03-25 05:16] LABS: Hematocrit 40.3 % (37.5-50.1); Hemoglobin 13.4 g/dL (12.9-16.9); Mean Corpuscular HGB Conc 33.3 g/dL (31.6-35.5); Mean Corpuscular Hemoglobin 31.5 pg (28.0-33.3); Mean Corpuscular Volume 94.6 fL (83.0-100.0); Mean Platelet Volume 10.1 fL (9.4-12.4); Platelet Count 185 K/mcL (140-400); Red Blood Count 4.26 M/mcL (4.19-5.50); Red Cell Distribution Width 12.6 % (11.5-14.5); White Blood Count 8.1 K/mcL (4.3-11.1)
[2019-03-25 05:37] LABS: BUN/Creatinine Ratio 18 (6-26); Blood Urea Nitrogen 21 mg/dL (8-23); Calcium 9.2 mg/dL (8.6-10.3); Carbon Dioxide 24 mEq/L (23-29); Chloride 103 mEq/L (98-107); Chol/HDL Ratio 4.3 (0-4.9); Cholesterol 117 mg/dL (< 200); Glucose 137 mg/dL (70-105); HDL Cholesterol 27 mg/dL (40-59); LDL Cholesterol,Calculated 56 mg/dL (0-99); Magnesium 1.7 mg/dL (1.6-2.6); Osmolality,Calculated 289 (280-300); Potassium 4.2 mEq/L (3.5-5.1); Sodium 137 mEq/L (136-145); Triglycerides 168 mg/dL (< 150); eGFR For African Americans > 60 (> 60); eGFR For Non-African Americans 58 (> 60)
[2019-03-25 06:19] LABS: Estimated Average Glucose 154 mg/dl
[2019-03-25] MEDS: Insulin LISPRO 300 UNITS/3 ML VIAL SQ SCH ×4 (07:39→21:48)
--- NOTE | 2019-03-25 08:16 | Event Note ---
Date of Encounter: 03/25/19 Time of Encounter: 09:00 I have seen and independently assessed this patient and I agree with plan per night team Plan Recurrent chest pain with recent stress test in november which was mildly abnormal. There would be no benefit to repeating a stress test. cardiology has been consulted and appreciate recs Patient expresses a desire to obtain a cardiac cath if indicated and possible stent placement if necessary. Continue aspirin and statin
--- NOTE | 2019-03-25 13:57 | Cardiology Consult Note ---
Date of Encounter: 03/25/19 Time of Encounter: 13:54 Assessment and Plan (1) Chest discomfort Current Visit: Yes Status: Acute Chest discomfort of unclear significance. Serial troponin measurements negative. Prior stress test mildly abnormal - small area of apical lateral ischemia. LVEF preserved per reports. Discussed options, including medical therapy +/- LHC. Recommend continue aspirin/statin/ARB therapy. Start BB. Low dose, monitor HR. Start Imdur titrate as needed. Repeat limited TTE. Further recommendations to follow based upon results of testing, response to medications, and discussion with family. Discussion w patient/family: The assessment and plan as outlined above was discussed with the patient and/or family members who expressed understanding and agreement. All questions were answered. Thank you for involving us in the care of your patient. Please call with any questions. History of Present Illness Consult date: 03/25/19 Requesting physician: Chely Leigh Consult reason: Chest discomfort Chief complaint: Chest discomfort History of present illness: Mr. Akbar is a 88 year old male with a history of prostate cancer presents with complaints of increasing shortness of breath, weakness, and intermittent episodes of chest discomfort. Describes as a substernal discomfort with radiation across his chest. Describes nausea at times. He is also noted shortness of breath with activity. ECG reviewed, which demonstrated sinus rhythm, right bundle branch block, and ST and T-wave changes similar to previous. Serial troponin measurements essentially negative. Previous cardiovascular testing reviewed: Lexiscan nuclear stress test 11/2017: Small area of ischemia involving the apical lateral segment. Gated EF 65%. TTE 03/2018: EF 55%. Mild TR. Normal LV, RV size and function. Past Med Surg Social Fam HX - Past Medical History Medical history: cancer (Prostate), DVT, diabetes, hyperlipidemia, hypertension Additional medical history: prostate cancer with seeds, filter , current blod clots Psychiatric history: no psych history - Past Surgical History Surgical History: herniorrhaphy Additional surgical history: Radiation seeds (118) 2009 - Social History Smoking Status: Never smoker Smokeless Tobacco Status: No Alcohol use: none Drug use: none - Family History Son Race: Family Member Ethnicity: Non- Living Status: Still Living Hx Family Cardiac Disorders: Yes (Son had 5 stents placed) Father Race: Family Member Ethnicity: Non- Living Status: Age at : 82 Cause of : CVA Hx Family Cardiac Disorders: Yes (CVA) Hx Family Neurologic Disorders: Yes (CVA) Mother Race: Family Member Ethnicity: Non- Living Status: Age at : 69 Cause of : Complications from DM Hx Family Cardiac Disorders: Yes (CAD, HTN) Hx Family Endocrine Disorder: Yes (DM) Brother Race: Family Member Ethnicity: Non- Living Status: Age at : 73 Cause of : [place] Hx Family Cardiac Disorders: Yes ([place], HTN, CAD) Sister Race: Family Member Ethnicity: Non- Living Status: Still Living Hx Family Cardiac Disorders: Yes (CVA x3) Hx Family Musculoskeletal Disorders: Yes (hip replaced) Hx Family Neurologic Disorders: Yes (CVAs) Daughter Race: Family Member Ethnicity: Non- Living Status: Hx Family Endocrine Disorder: Yes (DM) Medications and Allergies Losartan Potassium [Cozaar] 50 mg PO DAILY 06/05/17 [History] Timolol [Betimol] 1 drop LEFT EYE DAILY 04/10/18 [History] Warfarin Sodium 1.25 mg PO SUTUWEFRSA 04/10/18 [History] Warfarin Sodium 2.5 mg PO MOTH 04/10/18 [History] Omeprazole [PriLOSEC] 20 mg PO BID 04/24/18 [History] Rosuvastatin Calcium [Crestor] 10 mg PO DAILY 03/24/19 [History] metFORMIN [Glucophage] 500 mg PO BIDWM 03/24/19 [History] Allergy/AdvReac Type Severity Reaction Status Date / Time No Known Allergies Allergy Verified 03/24/19 19:51 All Systems Review: The remainder of the systems were reviewed and are negative - Cardiovascular Cardiovascular: as per HPI, chest pain at rest - Respiratory Respiratory: dyspnea Physical Examination Vital Signs, Last 4 Hours Temp Pulse Resp BP Pulse Ox 03/25/19 11:21 98.9 F 69 16 158/76 97 General: Conversant, No Apparent Distress HEENT: Atraumatic, Normocephaly Neck: No JVD Cardiac: Other (Distant, no significant murmurs) Lungs: Normal Breath Sounds, No Wheeze, Rales, Rhonchi Neuro: Alert and responsive, No focal deficits noted Abdomen: Soft, Non-Tender Skin: No rashes noted on visualized skin Musculoskeletal: No Chest Wall Tenderness Extremities: No Clubbing, No Cyanosis, No Edema Results 03/25/19 05:06 03/25/19 12:59 Lab Results 03/24/19 03/24/19 03/24/19 20:57 20:57 20:57 WBC 9.3 Hgb 13.8 Hct 41.9 Plt Count 205 INR 2.3 Sodium 135 L Potassium 4.1 Chloride 102 Carbon Dioxide 22 L BUN 22 Creatinine 1.19 Glucose 128 H Calcium 9.6 Magnesium Troponin I Lipase 03/24/19 03/24/19 03/25/19 21:23 21:23 05:06 WBC Hgb Hct Plt Count INR Sodium Potassium Chloride Carbon Dioxide BUN Creatinine Glucose Calcium Magnesium Troponin I 0.03 0.04 H* Lipase 28 03/25/19 03/25/19 03/25/19 05:06 05:06 09:50 WBC 8.1 Hgb 13.4 Hct 40.3 Plt Count 185 INR Sodium 137 Potassium 4.2 Chloride 103 Carbon Dioxide 24 BUN 21 Creatinine 1.19 Glucose 137 H Calcium 9.2 Magnesium 1.7 Troponin I 0.03 Lipase 03/25/19 12:59 WBC Hgb Hct Plt Count INR Sodium 134 L Potassium Chloride Carbon Dioxide BUN Creatinine Glucose Calcium Magnesium Troponin I Lipase - Imaging and Cardiology Stress Test: report reviewed Echo: report reviewed - EKG Interpretation EKG results cardiology: personally reviewed Consult Discharge Plan - Plan Referrals: Giovanni Morrow MD [Primary Care Provider] -
[2019-03-25] MEDS: Metoprolol XL (24 HR) Succ 25 MG TAB.ER.24H PO SCH (17:46)
[2019-03-25] MEDS: Isosorbide MONOnitrate (24 HR) 30 MG TAB.ER.24H PO SCH (17:46)
[2019-03-25] MEDS ORDERED: Warfarin perPT PO PRN (18:00)
[2019-03-25] MEDS ORDERED: 0.9 % Sodium Chloride 1,000 ML IVC ONE (22:20)
[2019-03-26 01:19] LABS: Hematocrit 34.9 % (37.5-50.1); Mean Corpuscular HGB Conc 33.5 g/dL (31.6-35.5); Mean Corpuscular Hemoglobin 32.1 pg (28.0-33.3); Mean Corpuscular Volume 95.6 fL (83.0-100.0); Mean Platelet Volume 10.5 fL (9.4-12.4); Platelet Count 175 K/mcL (140-400); Red Blood Count 3.65 M/mcL (4.19-5.50); Red Cell Distribution Width 12.5 % (11.5-14.5); White Blood Count 9.1 K/mcL (4.3-11.1)
[2019-03-26 01:25] LABS: Hemoglobin 11.7 g/dL (12.9-16.9)
[2019-03-26 01:30] LABS: INR 1.7; Prothrombin Time 19.8 Seconds (9.4-12.1)
[2019-03-26 01:34] LABS: BUN/Creatinine Ratio 21 (6-26); Blood Urea Nitrogen 24 mg/dL (8-23); Calcium 8.4 mg/dL (8.6-10.3); Carbon Dioxide 21 mEq/L (23-29); Chloride 107 mEq/L (98-107); Glucose 134 mg/dL (70-105); Osmolality,Calculated 288 (280-300); Potassium 4.1 mEq/L (3.5-5.1); Sodium 136 mEq/L (136-145); eGFR For African Americans > 60 (> 60); eGFR For Non-African Americans > 60 (> 60)
[2019-03-26] MEDS: Insulin LISPRO 300 UNITS/3 ML VIAL SQ SCH ×4 (07:40→20:24)
[2019-03-26] MEDS: Metoprolol XL (24 HR) Succ 25 MG TAB.ER.24H PO SCH (07:41)
[2019-03-26] MEDS: Aspirin 81 MG TAB.CHEW PO SCH (08:35)
[2019-03-26] MEDS: Isosorbide MONOnitrate (24 HR) 30 MG TAB.ER.24H PO SCH (08:35)
--- NOTE | 2019-03-26 10:04 | Internal Med Progress Note ---
Hospitalist Progress Note - Encounter Date of Encounter: 03/26/19 - Exam Vitals: Temp Pulse Resp BP Pulse Ox 98 F 59 18 104/56 94 03/26/19 06:15 03/26/19 06:15 03/26/19 06:15 03/26/19 06:15 03/26/19 06:15 Exam: Patient examined at bedside. Patient was resting comfortably. Stated that his back pain had resolved and he currently has no CP. States he still has mild SOB, but he wears 2L O2 via NC at night. Patient denies any other sx or complaints on exam. VS: 99.0F temp, HR 66, RR 16, BP 132/78, SPO2 94% on room air. 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 (4) KRYSTEN (acute kidney injury) Current Visit: Yes Status: Acute (5) HTN (hypertension) Current Visit: Yes Status: Chronic (6) HLD (hyperlipidemia) Current Visit: Yes Status: Chronic (7) DVT prophylaxis Current Visit: Yes Status: Acute - Time Spent with Patient Total time spent is greater than 50% in coordination of care (as documented) at patient's floor/unit and/or counseling patient: Internal Medicine: Result - Labs CBC & Chem 7: 03/26/19 00:41 03/26/19 00:41 Labs: Short CBC 03/26/19 Range/Units 00:41 WBC 9.1 (4.3-11.1) K/mcL Hgb 11.7 L D (12.9-16.9) g/dL Hct 34.9 L (37.5-50.1) % Plt Count 175 (140-400) K/mcL BMP 03/25/19 03/26/19 12:59 00:41 Sodium 134 L 136 Potassium 4.1 Chloride 107 Carbon Dioxide 21 L BUN 24 H Creatinine 1.14 Glucose 134 H Calcium 8.4 L Cardiac Enzymes 03/25/19 Range/Units 09:50 Troponin I 0.03 (< 0.04) ng/mL - ABG Interpretation ABG results: PT/INR, D-dimer PT 19.8 Seconds (9.4-12.1) H 03/26/19 00:41 - Impressions Impressions Echocardiogram 03/25/19 03:05 Impressions: LVEF 60-65%. Normal LV chamber size and function. Mild concentric left ventricular hypertrophy. Mild left ventricular diastolic dysfunction. Atypical septal motion consistent with bundle branch block. Normal right ventricular structure and function. Mild tricuspid regurgitation. No pulmonary hypertension. Left Ventricular Wall Motion: Rest Echo Findings All wall segments showed normal motion. Findings: Study Quality * Technically adequate exam. ECG Findings * Sinus rhythm with BBB. Left Ventricle * LVEF 60-65%. * Normal LV chamber size and function. * Mild concentric left ventricular hypertrophy. * Mild left ventricular diastolic dysfunction. * Atypical septal motion consistent with bundle branch block. Right Ventricle * Normal right ventricular structure and function. Left Atrium * Normal left atrial size. Right Atrium * Normal right atrial size. Interatrial Septum * Interatrial septum not well evaluated. Aortic Valve * Trileaflet aortic valve. * No aortic regurgitation. * No aortic stenosis. Mitral Valve * Normal mitral valve structure and function. * No mitral regurgitation. * No mitral stenosis. Tricuspid Valve * Normal tricuspid valve structure. * Mild tricuspid regurgitation. * No pulmonary hypertension. Pulmonic Valve * Pulmonic valve not well visualized. * No pulmonic regurgitation. Aorta * Normally sized aortic root. Pericardium * The pericardium appears normal. IVC * Normal IVC dimensions and inspiratory collapse. Pulmonary Artery * Normal visualized portions of the main pulmonary artery. Consult Discharge Plan - Plan Referrals: Giovanni Morrow MD [Primary Care Provider] - (1) Chest pain Qualifiers: Chest pain type: other chest pain Qualified Code(s): R07.89 - Other chest pain; R07.8 - Other chest pain (5) HTN (hypertension) Qualifiers: Hypertension type: essential hypertension Qualified Code(s): I10 - Essential (primary) hypertension (6) HLD (hyperlipidemia) Qualifiers: Hyperlipidemia type: pure hypercholesterolemia Qualified Code(s): E78.00 - Pure hypercholesterolemia, unspecified; E78.0 - Pure hypercholesterolemia
--- NOTE | 2019-03-26 10:37 | Cardiology Progress Note ---
Date of Encounter: 03/26/19 Time of Encounter: 10:35 Assessment and Plan (1) Chest discomfort Current Visit: Yes Status: Acute Chest discomfort of unclear significance. Serial troponin measurements negative. Denies chest pain overnight. Prior stress test mildly abnormal - small area of apical lateral ischemia. Discussed options, including medical therapy +/- LHC. Recommend continue aspirin/statin/ARB therapy. BB/ARB not given this AM d/t hypotension. Started Imdur titrate as needed. Repeat TTE LVEF 60-65%. Mild cLVH. Mild LVDD. Normal RV. Mild TR. Given pt's age, preserved EF and only a mildly abnormal stress, would recommend continued medical management with outpt follow-up. Attempted to call son to discuss with no answer. Discussion w patient/family: The assessment and plan as outlined above was discussed with the patient and/or family members who expressed understanding and agreement. All questions were a nswered. Thank you for involving us in the care of your patient. Please call with any questions. I will discuss all the above with Dr. Santos and make changes as necessary. Subjective Principal diagnosis: Chest pain Interval history: Denies chest pain today. Reports fatigue and dyspnea. Objective Vital Signs Temp Pulse Resp BP Pulse Ox 03/26/19 06:15 98 F 59 18 104/56 94 03/26/19 04:20 62 93/49 03/26/19 03:37 99.6 F 57 93/53 93 03/26/19 00:03 61 91/50 03/25/19 22:01 98.6 F 71 20 88/46 93 03/25/19 21:38 93 03/25/19 19:54 99.0 F 82 20 143/71 93 03/25/19 17:11 98.2 F 67 16 126/72 94 03/25/19 11:21 98.9 F 69 16 158/76 97 Intake and Output 03/25/19 03/26/19 03/26/19 23:59 07:59 15:59 Intake Total 500 / 980 1150 / 1270 120 / 1270 Output Total 300 / 575 200 / 200 Balance 200 / 405 950 / 1070 120 / 1070 Intake: IV Fluids 300 / 300 1000 / 1000 0.9 % Sodium Chloride 1,000 ML 300 / 300 1000 / 1000 @ 999 mls/hr IVC .Q1H1M ONE Rx# :[id number] Oral 200 / 680 150 / 270 120 / 270 Output: Urine 300 / 575 200 / 200 Other: Meal Breakfast Percent of Meal Consumed 95% Stool Size Small Stool Consistency formed Stool Color Brown # Voids 1 # Urine Diapers 1 # Bowel Movements 1 Weight 86.8 kg Blood Glucose* 126 125 Patient Weight 03/26/19 23:59 Weight 86.8 kg General: Conversant, No Apparent Distress HEENT: Atraumatic, Normocephaly, Mucus Membranes Moist Neck: No JVD, Normal carotid pulses Cardiac: Reg Rate and Rhythm, Normal S1 and S2, No Murmur Lungs: Normal Breath Sounds, No Wheeze, Rales, Rhonchi Neuro: Alert and responsive, No focal deficits noted Abdomen: Soft, Non-Tender Skin: No rashes noted on visualized skin Musculoskeletal: No Chest Wall Tenderness Extremities: No Clubbing, No Cyanosis, No Edema, Normal Pulses Results 03/26/19 00:41 03/26/19 00:41 Lab Results 03/25/19 03/25/19 03/26/19 09:50 12:59 00:41 WBC 9.1 Hgb 11.7 L D Hct 34.9 L Plt Count 175 INR Sodium 134 L Potassium Chloride Carbon Dioxide BUN Creatinine Glucose Calcium Troponin I 0.03 03/26/19 03/26/19 00:41 00:41 WBC Hgb Hct Plt Count INR 1.7 Sodium 136 Potassium 4.1 Chloride 107 Carbon Dioxide 21 L BUN 24 H Creatinine 1.14 Glucose 134 H Calcium 8.4 L Troponin I Short CBC 03/26/19 Range/Units 00:41 WBC 9.1 (4.3-11.1) K/mcL Hgb 11.7 L D (12.9-16.9) g/dL Hct 34.9 L (37.5-50.1) % Plt Count 175 (140-400) K/mcL BMP 03/26/19 03/25/19 Range/Units 00:41 12:59 Sodium 136 134 L (136-145) mEq/L Potassium 4.1 (3.5-5.1) mEq/L Chloride 107 (98-107) mEq/L Carbon Dioxide 21 L (23-29) mEq/L BUN 24 H (8-23) mg/dL Creatinine 1.14 (0.70-1.30) mg/dL Glucose 134 H (70-105) mg/dL Calcium 8.4 L (8.6-10.3) mg/dL Cardiac Enzymes 03/25/19 Range/Units 09:50 Troponin I 0.03 (< 0.04) ng/mL Impressions Echocardiogram 03/25/19 03:05 Impressions: LVEF 60-65%. Normal LV chamber size and function. Mild concentric left ventricular hypertrophy. Mild left ventricular diastolic dysfunction. Atypical septal motion consistent with bundle branch block. Normal right ventricular structure and function. Mild tricuspid regurgitation. No pulmonary hypertension. Left Ventricular Wall Motion: Rest Echo Findings All wall segments showed normal motion. Findings: Study Quality * Technically adequate exam. ECG Findings * Sinus rhythm with BBB. Left Ventricle * LVEF 60-65%. * Normal LV chamber size and function. * Mild concentric left ventricular hypertrophy. * Mild left ventricular diastolic dysfunction. * Atypical septal motion consistent with bundle branch block. Right Ventricle * Normal right ventricular structure and function. Left Atrium * Normal left atrial size. Right Atrium * Normal right atrial size. Interatrial Septum * Interatrial septum not well evaluated. Aortic Valve * Trileaflet aortic valve. * No aortic regurgitation. * No aortic stenosis. Mitral Valve * Normal mitral valve structure and function. * No mitral regurgitation. * No mitral stenosis. Tricuspid Valve * Normal tricuspid valve structure. * Mild tricuspid regurgitation. * No pulmonary hypertension. Pulmonic Valve * Pulmonic valve not well visualized. * No pulmonic regurgitation. Aorta * Normally sized aortic root. Pericardium * The pericardium appears normal. IVC * Normal IVC dimensions and inspiratory collapse. Pulmonary Artery * Normal visualized portions of the main pulmonary artery. Active Medications Acetaminophen (Tylenol) 650 mg PO Q6H PRN PRN Reason: Mild Pain/Fever Stop: 09/24/19 03:09 Last Admin: 03/25/19 11:13 Dose: 650 mg Documented by: Aspirin (Aspirin) 81 mg PO DAILY FOR[facility]LY [facility], [facility]1983 Stop: 09/25/19 09:01 Last Admin: 03/26/19 08:35 Dose: 81 mg Documented by: Atorvastatin Calcium (Lipitor) 20 mg PO DAILY [facility], [facility]1983 Stop: 09/24/19 09:01 Last Admin: 03/26/19 08:35 Dose: 20 mg Documented by: Dextrose/Water (Dextrose 50% (Syg)) 25 ml IVP AD PRN PRN Reason: Hypoglycemia Stop: 09/24/19 03:16 Glucagon (Glucagen) 1 mg IM ONCE PRN PRN Reason: Hypoglycemia Stop: 09/24/19 03:16 Glucose (Gluctose) 15 gm PO ONCE PRN PRN Reason: Hypoglycemia Stop: 09/24/19 03:16 Glucose (Gluctose) 30 gm PO ONCE PRN PRN Reason: Hypoglycemia Stop: 09/24/19 03:16 Dextrose (Dextrose 5%) 1,000 mls @ 100 mls/hr IVC .Q10H PRN PRN Reason: HYPOGLYCEMIA Stop: 09/24/19 03:16 Insulin Human Lispro (Humalog) 0 units SQ HS [facility], [facility]; Protocol Stop: 09/24/19 21:01 Last Admin: 03/25/19 21:48 Dose: Not Given Documented by: Insulin Human Lispro (Humalog) 0 units SQ TIDAC [facility], [facility]1983; Protocol Stop: 09/24/19 07:31 Last Admin: 03/26/19 07:40 Dose: Not Given Documented by: Isosorbide Mononitrate (Imdur) 30 mg PO DAILY [facility] Stop: 09/24/19 14:16 Last Admin: 03/26/19 08:35 Dose: 30 mg Documented by: Losartan Potassium (Cozaar) 50 mg PO DAILY [facility] Stop: 09/24/19 09:01 Last Admin: 03/26/19 07:41 Dose: Not Given Documented by: Metoprolol Succinate (Toprol Xl) 12.5 mg PO DAILY [facility] Stop: 09/24/19 14:16 Last Admin: 03/26/19 07:41 Dose: Not Given Documented by: Naloxone HCl (Narcan) 0.4 mg IVP Q2MPRN PRN PRN Reason: SEE COMMENTS Stop: 09/24/19 03:09 Nitroglycerin (Nitroglycerin) 0.4 mg SL Q5MPRN PRN PRN Reason: Chest Pain Stop: 09/24/19 03:16 Omeprazole (Prilosec) 20 mg PO BID [facility], [facility]; Protocol Stop: 09/24/19 09:01 Last Admin: 03/26/19 08:35 Dose: 20 mg Documented by: Ondansetron HCl (Zofran) 4 mg IVP Q8H PRN PRN Reason: Nausea And Vomiting Stop: 09/24/19 03:09 Timolol Maleate (Timolol Maleate 0.5%) 1 drop LEFT EYE DAILY INDY Stop: 09/24/19 09:01 Last Admin: 03/25/19 11:14 Dose: 1 drop Documented by: Tramadol HCl (Ultram) 50 mg PO Q6H PRN PRN Reason: Moderate Pain Stop: 09/24/19 03:09 Warfarin Sodium (Coumadin Perpt) 1 each PO DAILY@1800 PRN; Protocol PRN Reason: SEE COMMENTS Stop: 09/24/19 18:01 - Imaging and Cardiology Echo: report reviewed - EKG Interpretation EKG results cardiology: other (12 hr tele AVG HR 58, SR) Consult Discharge Plan - Plan Referrals: Giovanni Morrow MD [Primary Care Provider] -
--- NOTE | 2019-03-26 13:32 | Discharge Summary ---
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 Patient reports feeling unwell and having some back pain which has resolved. Patient describes CP as pressure in the central chest w/o radiation and intermittent. Alleviated w/rest. No aggravating factors. Patient has hx of abnormal nuclear stress test on 12/12/18. He was assessed with chest pain r/o ACS. He was noted to have a mildly abnormal stress test in nov, 2018, so stress test was not repeated. Cardiac enzymes were initially 0.04 but subsequenly 0.03 x 2 sets. He had an echo done showing preserved EF and no wall motion abnormalities. He was seen by cardiology and due to his age and comorbidities, medical management has been recommended as opposed to cardiac cath. This was explained to the patient at great length. Imdur and aspirin were added to his regimen and he will follow up with cardiology as an outpatient. He was discharged in a stable condition. Qualifiers: Chest pain type: other chest pain Qualified Code(s): R07.89 - Other chest pain; R07.8 - Other chest pain (2) Prostate cancer Priority: Primary Status: Chronic (3) Hx of deep venous thrombosis Priority: Primary Status: Chronic (4) KRYSTEN (acute kidney injury) Priority: Primary Status: Acute (5) HTN (hypertension) Priority: Primary Status: Chronic Qualifiers: Hypertension type: essential hypertension Qualified Code(s): I10 - Essential (primary) hypertension (6) HLD (hyperlipidemia) Priority: Primary Status: Chronic Qualifiers: Hyperlipidemia type: pure hypercholesterolemia Qualified Code(s): E78.00 - Pure hypercholesterolemia, unspecified; E78.0 - Pure hypercholesterolemia (7) DVT prophylaxis Priority: Primary Status: Acute Hospital course: Mr. Akbar is a 88 year old male - Time Spent with Patient Total time spent providing and/or coordinating discharge services: - Discharge Medications Prescriptions: New Nitroglycerin 0.4 mg SL Q5MPRN PRN #30 tab.subl PRN Reason: Chest Pain Aspirin 81 mg PO DAILY #30 tab.chew Continued Losartan Potassium [Cozaar] 50 mg PO DAILY Warfarin Sodium 2.5 mg PO MOTHSA Warfarin Sodium 1.25 mg PO SUTUWEFR Timolol [Betimol] 1 drop LEFT EYE DAILY Omeprazole [PriLOSEC] 20 mg PO BID metFORMIN [Glucophage] 500 mg PO BIDWM Rosuvastatin Calcium [Crestor] 10 mg PO DAILY Metoprolol Succinate [Toprol Xl] 12.5 mg PO DAILY Isosorbide MONOnitrate (24 HR) [Imdur] 30 mg PO DAILY #60 tab.er.24h Home Medications: Losartan Potassium [Cozaar] 50 mg PO DAILY 06/05/17 [History] Timolol [Betimol] 1 drop LEFT EYE DAILY 04/10/18 [History] Warfarin Sodium 1.25 mg PO SUTUWEFR 04/10/18 [History] Warfarin Sodium 2.5 mg PO MOTHSA 04/10/18 [History] Omeprazole [PriLOSEC] 20 mg PO BID 04/24/18 [History] Rosuvastatin Calcium [Crestor] 10 mg PO DAILY 03/24/19 [History] metFORMIN [Glucophage] 500 mg PO BIDWM 03/24/19 [History] Metoprolol Succinate [Toprol Xl] 12.5 mg PO DAILY 03/25/19 [History] Aspirin 81 mg PO DAILY #30 tab.chew 03/26/19 [Rx] Isosorbide MONOnitrate (24 HR) [Imdur] 30 mg PO DAILY #60 tab.er.24h 03/26/19 [Rx] Nitroglycerin 0.4 mg SL Q5MPRN PRN #30 tab.subl 03/26/19 [Rx] Allergies/Adverse Reactions: Allergy/AdvReac Type Severity Reaction Status Date / Time No Known Allergies Allergy Verified 03/24/19 19:51 Date of admission: 03/25/19 00:08 Primary care physician: Giovanni Morrow MD Consults: 03/25/19 01:29 Consult to Nutrition [CONS] Routine Comment: Consulting Provider: NUTRITION Reason for Dietary Consult: MST Score PO Supplementation Consult to Pastoral Services [CONS] Routine Comment: 03/25/19 03:12 Consult to Yard Motor Operator [CONS] Routine Reason for SW Consult: Please assess patient for possible home needs for post-discharge planning. 03/25/19 04:27 Consult to Cardiology [CONS] Routine Comment: Consulting Provider: Cardiology Beba Reason for Consult: Patient reports CP and SOB for the past several days. Hx of abnormal nuclear stress in November 2018. Call Completed: No - Constitutional Vitals: Temp Pulse Resp BP Pulse Ox 98.3 F 61 18 104/52 93 03/26/19 11:37 03/26/19 11:37 03/26/19 11:37 03/26/19 11:37 03/26/19 11:37 General appearance: Present: cooperative, A&O X 3, pleasant, no acute distress, answers questions appropriately Exam: NAD - Head Head exam: Present: atraumatic, normocephalic - Eye Eye exam: Present: PERRL, conjuntiva pink, sclera anicteric Pupils: Present: PERRL - Neck Neck exam general surgery: Present: supple, trachea midline. Absent: lymphadenopathy - Respiratory Respiratory exam: Present: CTAB. Absent: accessory muscle use, rales, rhonchi, wheezes - Cardiovascular Cardiovascular exam: Present: RRR, +S1, +S2. Absent: diastolic murmur, gallop, rubs, systolic murmur - GI/Abdominal GI/Abdominal exam: Present: normal bowel sounds, soft, no peritoneal signs. Absent: distended, tenderness - Extremities Exam Extremities exam: Present: warm, radial pulses palpable and symmetrical. Absent: calf tenderness, cyanotic, pedal edema - Neurological Exam Neurological exam: Present: CN II-XII intact, oriented X3, no focal deficits. Absent: pronater drift, facial droop, speech deficit - Skin Skin exam: Present: dry, intact - Patient Status Disposition: Home, Self-Care Condition: Good - Discharge Instructions Follow Up With: Giovanni Morrow MD [Primary Care Provider] -
--- NOTE | 2019-03-26 14:08 | Event Note ---
Date of Encounter: 03/26/19 Time of Encounter: 14:07 Patient says he can't go home on imdur as tit 'makes him dizzy and have diarrhea." Would like to stay for physical therapy because "he's weak" and wants to discuss with cardiology in am about other medication alternatives
[2019-03-26] MEDS ORDERED: 0.9 % Sodium Chloride 500 ML IVC ONE (16:21)
[2019-03-26] MEDS ORDERED: *HR* Warfarin 2.5 MG TABLET PO ONE (18:00)
[2019-03-27 06:09] LABS: Hematocrit 36.2 % (37.5-50.1); Hemoglobin 11.7 g/dL (12.9-16.9); Mean Corpuscular HGB Conc 32.3 g/dL (31.6-35.5); Mean Corpuscular Hemoglobin 31.4 pg (28.0-33.3); Mean Corpuscular Volume 97.1 fL (83.0-100.0); Mean Platelet Volume 10.5 fL (9.4-12.4); Platelet Count 169 K/mcL (140-400); Red Blood Count 3.73 M/mcL (4.19-5.50); Red Cell Distribution Width 12.7 % (11.5-14.5); White Blood Count 7.4 K/mcL (4.3-11.1)
[2019-03-27 06:16] LABS: INR 1.5; Prothrombin Time 16.7 Seconds (9.4-12.1)
[2019-03-27 06:32] LABS: Calcium 8.5 mg/dL (8.6-10.3); Potassium 4.2 mEq/L (3.5-5.1)
[2019-03-27] MEDS: Metoprolol XL (24 HR) Succ 25 MG TAB.ER.24H PO SCH (07:29)
[2019-03-27] MEDS: traMADol 50 MG TABLET PO PRN ×2 (07:30→20:14)
[2019-03-27] MEDS: Aspirin 81 MG TAB.CHEW PO SCH (07:30)
[2019-03-27] MEDS: Insulin LISPRO 300 UNITS/3 ML VIAL SQ SCH ×3 (07:31→20:08)
--- NOTE | 2019-03-27 08:50 | Internal Med Progress Note ---
Hospitalist Progress Note - Encounter Date of Encounter: 03/27/19 Time of Encounter: 10:00 - Subjective Interval History: No acute events overnight - Exam Vitals: Temp Pulse Resp BP Pulse Ox 98.7 F 55 16 136/70 97 03/27/19 07:08 03/27/19 07:08 03/27/19 07:08 03/27/19 07:08 03/27/19 07:08 Exam: General appearance: Present: A&O X 3, no acute distress Head exam: Present: normocephalic Respiratory exam: Present: CTAB. Absent: accessory muscle use, rales, rhonchi, wheezes Cardiovascular exam: Present: RRR, +S1, +S2. Absent: diastolic murmur, gallop, rubs, systolic murmur GI/Abdominal exam: Soft, NT, ND, +BS Extremities exam: Absent: pedal edema Neurological exam: Alert to person and place - Assessment and Plan (1) Chest pain Current Visit: Yes Status: Acute Assessment and Plan: He was assessed with chest pain r/o ACS. He was noted to have a mildly abnormal stress test in nov, 2018, so stress test was not repeated. Cardiac enzymes were initially 0.04 but subsequenly 0.03 x 2 sets. He had an echo done showing preserved EF and no wall motion abnormalities. He was seen by cardiology and due to his age and comorbidities, medical ma nagement had been recommended as opposed to cardiac cath but patient prefers to have invasive intervention Cardiac cath planned for am (2) Hx of deep venous thrombosis Current Visit: Yes Status: Chronic Assessment and Plan: Hx of DVT in bilateral LEs. Dopplers of bilateral LEs ordered. Hold coumadin for cath (3) KRYSTEN (acute kidney injury) Current Visit: Yes Status: Acute Assessment and Plan: Continue fluids and monitor creatinine (4) HTN (hypertension) Current Visit: Yes Status: Chronic Assessment and Plan: Resume home meds. continue losartan (5) DVT prophylaxis Current Visit: Yes Status: Acute Assessment and Plan: On coumadin - Time Spent with Patient Total time spent is greater than 50% in coordination of care (as documented) at patient's floor/unit and/or counseling patient: Internal Medicine: Result - Labs CBC & Chem 7: 03/27/19 04:36 03/27/19 04:36 Labs: Short CBC 03/27/19 Range/Units 04:36 WBC 7.4 (4.3-11.1) K/mcL Hgb 11.7 L (12.9-16.9) g/dL Hct 36.2 L (37.5-50.1) % Plt Count 169 (140-400) K/mcL BMP 03/27/19 04:36 Sodium 139 Potassium 4.2 Chloride 106 Carbon Dioxide 23 BUN 26 H Creatinine 1.39 H Glucose 122 H Calcium 8.5 L - ABG Interpretation ABG results: PT/INR, D-dimer PT 16.7 Seconds (9.4-12.1) H 03/27/19 04:36 Consult Discharge Plan - Plan Referrals: Giovanni Morrow MD [Primary Care Provider] - Prescriptions: Aspirin 81 mg PO DAILY #30 tab.chew Isosorbide MONOnitrate (24 HR) [Imdur] 30 mg PO DAILY #60 tab.er.24h Nitroglycerin 0.4 mg SL Q5MPRN PRN #30 tab.subl PRN Reason: Chest Pain (1) Chest pain Qualifiers: Chest pain type: other chest pain Qualified Code(s): R07.89 - Other chest pain; R07.8 - Other chest pain (4) HTN (hypertension) Qualifiers: Hypertension type: essential hypertension Qualified Code(s): I10 - Essential (primary) hypertension
--- NOTE | 2019-03-27 09:28 | Cardiology Progress Note ---
Date of Encounter: 03/27/19 Time of Encounter: 09:25 Assessment and Plan (1) Chest discomfort Current Visit: Yes Status: Acute Chest discomfort of unclear significance. Serial troponin measurements negative. Chest pain continues to be intermittent, 01/31 currently. Prior stress test mildly abnormal - small area of apical lateral ischemia. Discussed options, including medical therapy +/- LHC. Recommend continue aspirin/statin/ARB therapy. Started Imdur as outpt 01/2019. Per pt, unable to tolerate due to dizziness. Repeat TTE LVEF 60-65%. Mild cLVH. Mild LVDD. Normal RV. Mild TR. Given pt's age, preserved EF and only a mildly abnormal stress, recommended continued medical management. However, intermittent chest pain persists. LHC discussed at length--R/B/A and increased risk given age. They are aware of associated risks and wish to proceed to LHC. Plan for LHC tomorrow 03/28. NPO after midnight. Creatinine 1.39 today--will give IV hydration. INR 1.5 on Coumadin. Will hold tonight's dose. Discussion w patient/family: The assessment and plan as outlined above was discussed with the patient and/or family members who expressed understanding and agreement. All questions were answered. Thank you for involving us in the care of your patient. Please call with any questions. I will discuss all the above with Dr. Guevara and make changes as necessary. Subjective Principal diagnosis: Chest pain Interval history: Reports chest pain that started overnight, currently 01/31. Reports fatigue and dyspnea. Reports dizziness with Imdur. Objective Vital Signs, Last 4 Hours Temp Pulse Resp BP Pulse Ox 03/27/19 07:08 98.7 F 55 16 136/70 97 Vital Signs Temp Pulse Resp BP BP BP BP 03/27/19 07:08 98.7 F 55 16 136/70 03/27/19 03:11 99.2 F 60 16 118/68 03/26/19 23:31 99.3 F 58 15 108/54 03/26/19 18:22 99.0 F 61 16 110/55 03/26/19 15:15 98.0 F 67 18 168/66 03/26/19 15:06 118/55 111/52 168/66 03/26/19 11:37 98.3 F 61 18 104/52 Pulse Ox 03/27/19 07:08 97 03/27/19 03:11 99 03/26/19 23:31 96 03/26/19 18:22 94 03/26/19 15:15 93 03/26/19 15:06 03/26/19 11:37 93 Intake and Output 03/26/19 03/27/19 03/27/19 23:59 07:59 15:59 Intake Total 750 / 2260 150 / 150 Output Total 200 / 500 400 / 475 75 / 475 Balance 550 / 1760 -250 / -325 -75 / -325 Intake: IV Fluids 500 / 1500 0.9 % Sodium Chloride 500 ML @ 500 / 500 999 mls/hr IVC .Q31M ONE Rx#: [id number] Oral 250 / 760 150 / 150 Output: Urine 200 / 500 400 / 475 75 / 475 Other: Meal Dinner Percent of Meal Consumed 100% # Voids 1 Weight 86.9 kg Blood Glucose* 126 119 Patient Weight 03/27/19 23:59 Weight 86.9 kg General: Conversant, No Apparent Distress HEENT: Atraumatic, Normocephaly, Mucus Membranes Moist Neck: No JVD, Normal carotid pulses Cardiac: Reg Rate and Rhythm, Normal S1 and S2, No Murmur Lungs: Normal Breath Sounds, No Wheeze, Rales, Rhonchi Neuro: Alert and responsive, No focal deficits noted Abdomen: Soft, Non-Tender Skin: No rashes noted on visualized skin Musculoskeletal: No Chest Wall Tenderness Extremities: No Clubbing, No Cyanosis, No Edema, Normal Pulses Results 03/27/19 04:36 03/27/19 04:36 Lab Results 03/27/19 03/27/19 03/27/19 04:36 04:36 04:36 WBC 7.4 Hgb 11.7 L Hct 36.2 L Plt Count 169 INR 1.5 Sodium 139 Potassium 4.2 Chloride 106 Carbon Dioxide 23 BUN 26 H Creatinine 1.39 H Glucose 122 H Calcium 8.5 L Short CBC 03/27/19 Range/Units 04:36 WBC 7.4 (4.3-11.1) K/mcL Hgb 11.7 L (12.9-16.9) g/dL Hct 36.2 L (37.5-50.1) % Plt Count 169 (140-400) K/mcL BMP 03/27/19 Range/Units 04:36 Sodium 139 (136-145) mEq/L Potassium 4.2 (3.5-5.1) mEq/L Chloride 106 (98-107) mEq/L Carbon Dioxide 23 (23-29) mEq/L BUN 26 H (8-23) mg/dL Creatinine 1.39 H (0.70-1.30) mg/dL Glucose 122 H (70-105) mg/dL Calcium 8.5 L (8.6-10.3) mg/dL Active Medications Acetaminophen (Tylenol) 650 mg PO Q6H PRN PRN Reason: Mild Pain/Fever Stop: 09/24/19 03:09 Last Admin: 03/25/19 11:13 Dose: 650 mg Documented by: Aspirin (Aspirin) 81 mg PO DAILY [facility] Stop: 09/25/19 09:01 Last Admin: 03/27/19 07:30 Dose: 81 mg Documented by: Atorvastatin Calcium (Lipitor) 20 mg PO DAILY [facility] Stop: 09/24/19 09:01 Last Admin: 03/27/19 07:30 Dose: 20 mg Documented by: Dextrose/Water (Dextrose 50% (Syg)) 25 ml IVP AD PRN PRN Reason: Hypoglycemia Stop: 09/24/19 03:16 Glucagon (Glucagen) 1 mg IM ONCE PRN PRN Reason: Hypoglycemia Stop: 09/24/19 03:16 Glucose (Gluctose) 15 gm PO ONCE PRN PRN Reason: Hypoglycemia Stop: 09/24/19 03:16 Glucose (Gluctose) 30 gm PO ONCE PRN PRN Reason: Hypoglycemia Stop: 09/24/19 03:16 Dextrose (Dextrose 5%) 1,000 mls @ 100 mls/hr IVC .Q10H PRN PRN Reason: HYPOGLYCEMIA Stop: 09/24/19 03:16 Sodium Chloride (0.9 % Sodium Chloride) 1,000 mls @ 100 mls/hr IVC .Q10H [facility] Stop: 03/27/19 21:01 Insulin Human Lispro (Humalog) 0 units SQ HS [facility]; Protocol Stop: 09/24/19 21:01 Last Admin: 03/26/19 20:24 Dose: Not Given Documented by: Insulin Human Lispro (Humalog) 0 units SQ TIDAC [facility]; Protocol Stop: 09/24/19 07:31 Last Admin: 03/27/19 07:31 Dose: Not Given Documented by: Losartan Potassium (Cozaar) 50 mg PO DAILY [facility] Stop: 09/24/19 09:01 Last Admin: 03/27/19 07:30 Dose: 50 mg Documented by: Metoprolol Succinate (Toprol Xl) 12.5 mg PO DAILY [facility] Stop: 09/24/19 14:16 Last Admin: 03/27/19 07:29 Dose: 12.5 mg Documented by: Naloxone HCl (Narcan) 0.4 mg IVP Q2MPRN PRN PRN Reason: SEE COMMENTS Stop: 09/24/19 03:09 Nitroglycerin (Nitroglycerin) 0.4 mg SL Q5MPRN PRN PRN Reason: Chest Pain Stop: 09/24/19 03:16 Omeprazole (Prilosec) 20 mg PO BID [facility]; Protocol Stop: 09/24/19 09:01 Last Admin: 03/27/19 07:31 Dose: 20 mg Documented by: Ondansetron HCl (Zofran) 4 mg IVP Q8H PRN PRN Reason: Nausea And Vomiting Stop: 09/24/19 03:09 Timolol Maleate (Timolol Maleate 0.5%) 1 drop LEFT EYE DAILY [facility] Stop: 09/24/19 09:01 Last Admin: 03/27/19 07:32 Dose: 1 drop Documented by: Tramadol HCl (Ultram) 50 mg PO Q6H PRN PRN Reason: Moderate Pain Stop: 09/24/19 03:09 Last Admin: 03/27/19 07:30 Dose: 50 mg Documented by: Warfarin Sodium (Coumadin Perpt) 1 each PO DAILY@1800 PRN; Protocol PRN Reason: SEE COMMENTS Stop: 09/24/19 18:01 - Imaging and Cardiology Stress Test: report reviewed Echo: report reviewed - EKG Interpretation EKG results cardiology: other (12 hr tele AVG HR 55, SR) Consult Discharge Plan - Plan Referrals: Giovanni Morrow MD [Primary Care Provider] - Prescriptions: Aspirin 81 mg PO DAILY #30 tab.chew Isosorbide MONOnitrate (24 HR) [Imdur] 30 mg PO DAILY #60 tab.er.24h Nitroglycerin 0.4 mg SL Q5MPRN PRN #30 tab.subl PRN Reason: Chest Pain
[2019-03-27] MEDS: 0.9 % Sodium Chloride 1,000 ML IVC SCH (10:04)
[2019-03-27] MEDS ORDERED: *HR* Heparin 5,000 UNIT/ML VIAL IVP ONE (13:58)
[2019-03-27] MEDS ORDERED: *HR* Heparin 5,000 UNIT/ML VIAL IVP PRN ×2 (13:58)
[2019-03-27] MEDS: Heparin 25,000 UNIT/250 ML D5W 25,000 UNIT/250 ML IV.SOLN IVC SCH (15:32)
[2019-03-27 16:26] LABS: Hemoglobin 13.1 g/dL (12.9-16.9); Mean Corpuscular HGB Conc 32.8 g/dL (31.6-35.5); Mean Corpuscular Volume 97.6 fL (83.0-100.0); Mean Platelet Volume 10.7 fL (9.4-12.4); Platelet Count 189 K/mcL (140-400); Red Cell Distribution Width 12.7 % (11.5-14.5); White Blood Count 8.5 K/mcL (4.3-11.1)
[2019-03-27 16:35] LABS: INR 1.5; Prothrombin Time 17.6 Seconds (9.4-12.1)
[2019-03-27 16:49] LABS: Heparin anti-factor XA UFH 1.67 IU/mL (0.30-0.70)
[2019-03-28] MEDS ORDERED: 0.9 % Sodium Chloride 1,000 ML IVC SCH (03:15)
[2019-03-28] MEDS: 0.9 % Sodium Chloride 1,000 ML IVC SCH (03:21)
[2019-03-28 05:03] LABS: Basophils # 0.1 K/mcL (0.0-0.2); Basophils % 0.7 %; Eosinophils # 0.3 K/mcL (0.0-0.6); Eosinophils % 4.5 %; Hematocrit 36.9 % (37.5-50.1); Hemoglobin 12.1 g/dL (12.9-16.9); Immature Granulocytes % 0.6 % (0-4); Lymphocytes # 1.3 K/mcL (0.6-4.6); Lymphocytes % 17.9 %; Mean Corpuscular HGB Conc 32.8 g/dL (31.6-35.5); Mean Corpuscular Hemoglobin 31.9 pg (28.0-33.3); Mean Corpuscular Volume 97.4 fL (83.0-100.0); Mean Platelet Volume 10.4 fL (9.4-12.4); Monocytes # 0.7 K/mcL (0.0-1.3); Monocytes % 9.7 %; Neutrophils # 4.8 K/mcL (1.6-8.9); Platelet Count 180 K/mcL (140-400); Red Blood Count 3.79 M/mcL (4.19-5.50); Red Cell Distribution Width 12.5 % (11.5-14.5); Segmented Neutrophils % 66.6 %; White Blood Count 7.2 K/mcL (4.3-11.1)
[2019-03-28 05:11] LABS: INR 1.5; Prothrombin Time 16.8 Seconds (9.4-12.1)
[2019-03-28 05:44] LABS: BUN/Creatinine Ratio 18 (6-26); Blood Urea Nitrogen 20 mg/dL (8-23); Calcium 8.4 mg/dL (8.6-10.3); Carbon Dioxide 23 mEq/L (23-29); Chloride 109 mEq/L (98-107); Glucose 124 mg/dL (70-105); Osmolality,Calculated 292 (280-300); Phosphorous 2.6 mg/dL (2.7-4.5); Potassium 4.2 mEq/L (3.5-5.1); Sodium 139 mEq/L (136-145); eGFR For African Americans > 60 (> 60); eGFR For Non-African Americans > 60 (> 60)
[2019-03-28] MEDS: Insulin LISPRO 300 UNITS/3 ML VIAL SQ SCH ×5 (05:44→22:33)
[2019-03-28 06:47] LABS: Bilirubin,Urine Negative (Negative); Blood,Urine Negative (Negative); Clarity,Urine Clear (Clear); Color,Urine Yellow (Yellow); Glucose,Urine (UA) Normal (Normal); Ketones,Urine Negative (Negative); Leukocyte Esterase,Urine Negative (Negative); Nitrite,Urine Negative (Negative); Protein,Urine Negative (Neg-Trace); Specific Gravity,Urine 1.018 (1.010-1.025); Urobilinogen,Urine Normal (Normal)
--- NOTE | 2019-03-28 09:27 | Event Note ---
Date of Encounter: 03/28/19 Time of Encounter: 09:23 - Cardiology Event Note Plan for LHC today for persistent chest pain and mildly abnormal stress test despite attempted medical management. R/B/A discussed at length. Pt agrees to proceed. LHC today. HAS-BLED Score - Score Elderly: Age>65 years Medication usage predisposing to bleeding: Antiplatelet agents, NSAIDs, Anticoagulants Score: 2
[2019-03-28] MEDS: Metoprolol XL (24 HR) Succ 25 MG TAB.ER.24H PO SCH (09:52)
[2019-03-28] MEDS: Aspirin 81 MG TAB.CHEW PO SCH (09:53)
[2019-03-28] MEDS ORDERED: *HR* Heparin 10,000 UNIT/10 ML VIAL ONE (12:44)
[2019-03-28] MEDS ORDERED: 0.9 % Sodium Chloride 1,000 ML ONE ×2 (12:44→13:13)
[2019-03-28] MEDS ORDERED: *HR* FentaNYL (PF) 100 MCG/2 ML VIAL ONE (12:44)
[2019-03-28] MEDS ORDERED: Heparin 1,000 UNITS/500 mL 500 ML ONE (12:44)
[2019-03-28] MEDS ORDERED: Iopamidol 125 ML INFUS..BTL ONE (12:44)
[2019-03-28] MEDS ORDERED: *HR* Midazolam HCl 2 MG/2 ML VIAL ONE (12:44)
[2019-03-28] MEDS ORDERED: Nitroglycerin 1,000 MCG/10 ML VIAL IV ONE (12:45)
--- NOTE | 2019-03-28 13:14 | Pre-Sedation Evaluation ---
Pre-sedation evaluation - Pre-sedation checklist Date of procedure: 03/28/19 Procedure: [facility] Recent Vitals: Last Vital Signs Temp 98.5 F 03/28/19 11:07 Pulse 57 03/28/19 11:07 Resp 18 03/28/19 11:07 BP 151/87 03/28/19 11:07 Pulse Ox 97 03/28/19 11:07 H&P (including ROS) documented in medical record: Yes Previous reaction to sedatives/anesthetics: No Dietary Status: NPO after Midnight Airway Assessment: Patient can open mouth completely, TMJ function normal If Yes;: History of difficult intubation ASA Classification *see protocol: CLASS II-Mild systemic disease Plan of Care: Pt appropriate candidate for procedure/moderate/conscious sedation, Risks/benefits of procedure/sedation discussed w/ patient/family Cardiac Registry (Cardio Only) - Functional Capacity Functional Capacity: >=4 METS with symptoms - Clincal Frailty Scale Clinical Frailty Scale: Managing Well
--- NOTE | 2019-03-28 13:59 | Invasive Diagnostic Lab Proc ---
Name: Deshaun Akbar Date of Study: 03/28/2019 Date: 1930 Ht: 70.1in Medical Record#: [id number] Age: 88 Wt: 191.36lb Gender: Male BSA: 2.05 Order #: [id number] BMI: 27.4 Physicians Procedure Physician: Bin Crandall MD, FACC Referring MD: Referring MD: Staff Name Position Time In Minal Boyer RN Monitor 01:12 PM Santos Burt RN Stick Puller 01:12 PM Crystal Stafford RT (R) Scrub 01:12 PM Joe Tejada RN Nurse 01:12 PM Carolina Resendiz RT (R) 01:12 PM Procedures Performed Procedure L HRT ARTERY/VENTRICLE ANGIO Pre-Procedure Checklist Informed consent is complete signed and on chart. H&P is on chart. ID band is on and ID verified with patient. Patient NPO for procedure The procedure was described for the patient and questions were answered. Blood Pressure: 151/77 ECG is on chart. Rhythm: NSR Plan of Care Patient will tolerate the procedure without complications. Adequate level of comfort will be maintained. Hemodynamics will remain stable Patient will recover from procedure without complications. Respiratory function will be maintained. Cardiac rhythm will remain stable. Patient temperature will be maintained. Patient and/or family have verbalized understanding of the procedure. Patient Education Chief Complaint/Reason for Test: Cardiac Cath Developmental Category: Geriatric (65+ years) Developmentally Appropriate for Age: Yes Learning Barriers: None Education Needs: Procedure Education Method: Verbal Information Taught: Cardiac Cath Educational Evaluation: Able to repeat information Intravenous Access Time IV Size Location DC'd Fluid/Drip Rate Units RN 20g 1 /" Patent On Arrival Rt Arm 0.9NaCl Allergies No Known Allergies Vital Signs Time BP (mmHg) HR (bpm) O2 Sat. RR (bpm) LOC 01:13 PM / % 5 = Fully awake and oriented or at pre-proc level 01:13 PM / % 4 = Oriented but drowsy 01:29 PM / % 4 = Oriented but drowsy 01:18 PM 170 / 84 54 98 % 22 01:23 PM 151 / 79 56 98 % 16 01:28 PM 136 / 78 54 98 % 29 01:33 PM 142 / 72 53 98 % 19 01:38 PM 135 / 67 66 96 % 34 01:43 PM 123 / 76 70 94 % 25 Procedural Medications Time Medication Dose Units Method Given By 01:12 PM Oxygen 2 L/min nasal cannula Santos Burt RN 01:16 PM Versed 2 mg Intravenous Santos Burt RN 01:16 PM Fentanyl 50 mcg Intravenous Santos Burt RN 01:31 PM Lidocaine 2% 1 ml Subcutaneous Bin Crandall MD, FACC 01:36 PM Heparin 2000 units Nitroglycerin 200 mcg Verapamil 2.5 mg Intraarterial Bin Cradnall MD, [facility] ASA Classification: CLASS II- Mild systemic disease (i.e. well-controlled diabetes, hypertension, asthma, cigarette smoking) Steve Score Preprocedure Postprocedure Activity 2- Moves 4 extremities sustained head lift Activity 2- Moves 4 extremities sustained head lift Circulation 2- SBP +/= 20 points of pre-anesthetic level Circulation 2- SBP +/= 20 points of pre-anesthetic level Consciousness 2- Awake and alert oriented x 3 Consciousness 2- Awake and alert oriented x 3 O2 Saturation 2- Able to maintain O2 satruation of 92% on room air O2 Saturation 2- Able to maintain O2 satruation of 92% on room air Respiratory 2- Able to deep breathe and cough well Respiratory 2- Able to deep breathe and cough well Total Score 10 Total Score 10 Contrast Agent: Isovue Diagnostic Contrast: 44 ml Total Contrast: 44 ml Fluoro Dose: 16 mGy Procedure Log Time Note Enter By 01:11 PM Pt arrived to finishing lab technician 2 at 13:11 oparker 01:12 PM Minal Byoer RN Position: Monitor [facility]: 13:12 [facility] Santos Burt RN Position: Stick Puller Time in: 13:12 [facility] 01:12 PM Crystal Stafford RT (R) Position: Scrub Time in: 13:12 [facility] 01:12 PM Patient charges- Angio tray pack, Navilyst 3mm J, Pulse Oximetry and ACIST tubing and transducer 01:12 PM IV Supplies used: J loop Angio Cath. [facility] 01:12 PM Meet and greet completed [facility] 01:12 PM Sign in performed according to hospital policy. Informed consent was obtained. [facility] 01:12 PM Procedure start 13:12 01:12 PM Hair removed from procedure site in procedure lab using clippers. Right wrist and Right groin prepped with Chloraprep by Joe Tejada RN, then patient was draped. Skin intact. 01:12 PM Joe Tejada RN Position: Nurse Time in: 13:12 [email or web address] 01:12 PM AstridCarolina RT (R) Position: Time in: 13:12 mahad :13 PM Time: 13:12 Oxygen on at 2 L/min per nasal cannula by Santos Burt RN [facility] PM Time: 13:13 Patient comfortable and pain free: Yes oumahad : PM Time: 13:13LOC: 5 = Fully awake and oriented or at pre-proc level oumahad :14 PM ASA Class CLASS II- Mild systemic disease (i.e. well-controlled diabetes, hypertension, asthma, cigarette smoking) tsoumahad :16 PM CathStat 01:16 PM Vitals capture started with the following parameters, Patient=Adult, Interval=5 min, Initial Qgzagnae=522 mmHg, Deflation Rate=3 mmHg, Cuff placed on Right Arm 01:16 PM Vitals capture stopped. 01:16 PM Time: 13:16 Versed 2 mg Intravenous Given by Santos Burt RN billy :16 PM Time: 13:16 Fentanyl 50 mcg Intravenous Given by Santos Burt RN 01:17 PM Vitals capture started with the following parameters, Patient=Adult, Interval=5 min, Initial Igornmer=230 mmHg, Deflation Rate=3 mmHg, Cuff placed on Right Arm 01:17 PM Recorded ECG: HR=56 Condition=Condition 1 01:18 PM HR=54 bpm, LMWD=459/84 mmhg, SpO2=98.0 %, Resp=22 B/min 01:23 PM HR=56 bpm, KYEJ=503/79 mmhg, SpO2=98.0 %, Resp=16 B/min 01:27 PM Pressure channel 1 zeroed. 01:28 PM HR=54 bpm, KABO=378/78 mmhg, SpO2=98.0 %, Resp=29 B/min : PM Time: 13:13LOC: 4 = Oriented but drowsy tsoummers 01:29 PM Time: 13:13 Patient comfortable and pain free: Yes tsoummers 01:31 PM Time out was performed according to hospital policy. Conscious sedation and anesthesia was achieved (see medication log with in this report above) tsoummers 01:31 PM Time: 13:31 1 ml Lidocaine 2% to right radial Subcutaneous Given by Bin Crandall MD, [facility] tsoummers 01:33 PM HR=53 bpm, LAXM=023/72 mmhg, SpO2=98.0 %, Resp=19 B/min 01:36 PM Access obtained by percutaneous puncture. 5-6Fr 10cm Terumo Glidesheath sheath placed in right Radial artery. [id number] tsoummers 01:36 PM Time: 13:36 Patient given 2,000 units Heparin, 200 mcg Nitroglycerin, and 2.5 mg Verapamil Intraarterial by Bin Crandall MD, [facility]. This is given to reduce risk of vessel spasm and thrombosis. tsoummers 01:37 PM 0.035 260cm Navilyst 3mmJ wire [id number] tsoummers 01:37 PM 5Fr TIG catheter inserted over the wire [facility] tsoummers 01:38 PM HR=66 bpm, FTAD=929/67 mmhg, SpO2=96.0 %, Resp=34 B/min 01:38 PM wire removed tsoumm 01:38 PM LCA angiography performed in multiple views. mmers 01:39 PM Recorded Pressure: Ao, HR=79, Condition=Condition 1 (Aorta) Ao 102/70/86 01:41 PM Lesion found in Proximal LMCA. Pre Stenosis: 30 Pre XANDER Flow: tsoummers 01:41 PM Left Main Coronary Artery with 30% stenosis tsoummers 01:41 PM Lesion found in Proximal LAD. Pre Stenosis: 30 Pre XANDER Flow: tsoummers 01:41 PM Proximal Left Anterior Descending Coronary Artery with 30% stenosis. If graft is supplying this territory, 0 % stenosis. tsoummers 01:42 PM Pressure channel 1 zeroed. 01:42 PM Recorded Pressure: LV, HR=73, Condition=Condition 1 (Left Ventricle) LV 121/10/21 01:42 PM Recorded Pressure: LV, Ao, HR=75, Condition=Condition 1 (Left Ventricle) LV 121/9/20, (Aorta) Ao 129/74/98 01:42 PM Catheter crossed the aortic valve and was selectively placed in the left ventricle. Pressures recorded on pullback for left heart catheterization. mm 01:42 PM RCA angiography performed in multiple views. 01:43 PM HR=70 bpm, ZWGN=649/76 mmhg, SpO2=94.0 %, Resp=25 B/min 01:43 PM Coronary Dominance: right tsoumm 01:43 PM Recorded Pressure: Ao, HR=70, Condition=Condition 1 (Aorta) Ao 119/61/90 01:43 PM Lesion found in Proximal RCA. Pre Stenosis: 20 Pre XANDER Flow: tsoumm:43 PM Lesion found in Mid RCA. Pre Stenosis: 50 Pre XANDER Flow: tsoummers :44 PM Time: 13:29 Patient comfortable and pain free: Yes oumm:44 PM Time: 13:29LOC: 4 = Oriented but drowsy tsoumm 01:44 PM Catheter removed :44 PM Lesion found in RPAV. Pre Stenosis: 70 Pre XANDER Flow: tsoummers :44 PM Right Coronary, Right Posterior Descending Arteries with Right Posterolateral and Acute Marginal branches with 70 % stenosis. If graft is supplying this area, 0 % stenosis tsoumm 01:45 PM Procedure completed at 13:45 03/28/2019 tsoummers 01:45 PM Did you address XANDER flow and Dominance? YesCoronary Dominance: right tsoummers 01:46 PM Sign out completed: Radiation Dose 139.25 mGy, 15.7 Gy/cm2 Fluoro Time: 2 Isovue 370 - 200ml contrast 44 ml given by Bin Crandall MD, [facility]. Complications: None. The patient was discharged out of the cath lab nurse in stable condition. Sedation minutes 29. Cardiac Rehab Consult needed: No. Confirmed administered medications: No oummers 01:46 PM Isovue 370 - 200ml,1 Bottle(s) used. tsoummers 01:46 PM Arterial sheath pulled, Vasc Band closure device used and was Successful S/N. tsoummers 01:46 PM 11 ml air in Vasc Band. tsoummers 01:46 PM Estimated Blood Loss: minimal tsoummers 01:46 PM Post ECG NSR tsoummers 01:46 PM Post Blood Pressure 123/76 tsoummers 01:46 PM 13:46 Post Pulses Rt Radial 1+ tsoummers 01:46 PM Information taught Cardiac Cath and Vasc Band oummers 01:46 PM Education needs Procedure, Plan of Care, and Responsibilities of Patient in Care tsoumm 01:46 PM Learning barriers :None oummers 01:46 PM Education Methods Verbal oumm 01:46 PM Education evaluation Able to repeat information oumm 01:46 PM Site status No bleeding/ No Hematoma - Rt Wrist as reported by Crystal Stafford RT (R) at 13:46 tsoummers 01:47 PM Plavix, Effient or Brilinta given No tsoummers 01:47 PM Delay to floor No tsoummers 01:47 PM Family placed in consult room. tsoummers 01:51 PM Report given to Kiah DUNBAR Pt taken to E Room #17. 13:51 tsoummers 01:51 PM [facility] Complications Complication None Hemodynamics Pressures Site Systolic/A Wave Diastolic/V Wave Mean AO 102 70 86 LV 121 10 21 LV 121 9 20 AO 129 74 98 AO 119 61 90 Post Procedure Information Blood Pressure: 123/76 mmHg Rhythm: NSR Post procedural instructions were given Closure Device Time Device Success/Fail 03/28/2019 1:46:00 PM Mechanical Compression Successful Site Checks Time Location Status Staff Sheath In? Note 01:46 PM Rt Wrist No bleeding/ No Hematoma Crystal Stafford RT (R) Pulses Time Site Pre-Procedure Post-Procedure Note Bilateral radial 2+ Bilateral DP & PT 2+ 1:46:00 PM Rt Radial 1+ Updated by Kishore Boothe RN on 03/28/2019 1:52:10 PM electronically signed on 03/28/2019 1:52:28 PM with status of Final
--- NOTE | 2019-03-28 16:07 | Internal Med Progress Note ---
Hospitalist Progress Note - Encounter Date of Encounter: 03/28/19 Time of Encounter: 16:05 - Subjective Interval History: I have seen and evaluated the patient at bedside. patient reported dysuria for the past 2 weeks, increase straining with urination. denies chest pain, shortness of breath nausea or vomiting. - Exam Vitals: Temp Pulse Resp BP Pulse Ox 97.8 F 65 14 152/78 95 03/28/19 15:45 03/28/19 15:45 03/28/19 15:45 03/28/19 15:45 03/28/19 15:45 Exam: Vitals: Reviewed General: Alert and oriented x4. In mild distress due to supra-pubic abdominal pain. Skin: Normal color, no rash, no lesions. HEENT: EOM, pupils equal, round and reactive. Cardiovascular: RRR, normal S1 & S2, no rubs, murmurs or gallops. Lungs:CTA b/l, no wheezes or crackles. Abdomen: Soft, mild tenderness in the supra-pubic area, no rigidity. Extremities: No deformity, no edema or tenderness, no joint swelling or clubbing. Neurological: Normal cognition and motor skills. 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 Assessment: 1. Chest pain (resolved) 2. CAD 3. KRYSTEN (resolved) 4. BPH like symptoms 5. Dysuria 6. Hypertension 7. Hx od DVT 8. DM 9. HLD 10. VTE prophylaxis 11. Hx of DVT Plan patient s/p LHC: Impressions: There is severe one vessel coronary artery disease PLB. Diagonal LV fistula. Normal LV function. Apical lateral ischemia on stress (SDS 4). - c/w aspirin 81mg/PO daily, bb and statin - ranexa added per cardiology recommendations - continue heparin drip as a bridge. On warfarin. INR not therapeutic - Bladder US ordered. patient with a Hx of bladder cancer. reporting 2 weeks hx of dysuria - Urology consulted, recommendations appreciated Disposition: - Patient to remain in the hospital on a heparin drip. potential discharge tomorrow. - Time Spent with Patient Total time spent is greater than 50% in coordination of care (as documented) at patient's floor/unit and/or counseling patient: Greater than 35 minutes (45) Plan of Care Discussed with: patient (and the nurse.) Internal Medicine: Result - Labs CBC & Chem 7: 03/28/19 04:23 03/28/19 04:23 Labs: Short CBC 03/27/19 03/28/19 Range/Units 15:48 04:23 WBC 8.5 7.2 (4.3-11.1) K/mcL Hgb 13.1 12.1 L (12.9-16.9) g/dL Hct 40.0 36.9 L (37.5-50.1) % Plt Count 189 180 (140-400) K/mcL Neutrophils # 4.8 (1.6-8.9) K/mcL BMP 03/28/19 04:23 Sodium 139 Potassium 4.2 Chloride 109 H Carbon Dioxide 23 BUN 20 Creatinine 1.12 Glucose 124 H Calcium 8.4 L Urine 03/28/19 Range/Units 06:30 Urine Color Yellow (Yellow) Urine Clarity Clear (Clear) Urine pH 6.0 (5.0-8.0) pH Units Ur Specific [place] 1.018 (1.010-1.025) Urine Protein Negative (Neg-Trace) mg/dL Urine Glucose (UA) Normal (Normal) mg/dL - ABG Interpretation ABG results: PT/INR, D-dimer PT 16.8 Seconds (9.4-12.1) H 03/28/19 04:23 Consult Discharge Plan - Plan Referrals: Giovanni Morrow MD [Primary Care Provider] - Prescriptions: Aspirin 81 mg PO DAILY #30 tab.chew Isosorbide MONOnitrate (24 HR) [Imdur] 30 mg PO DAILY #60 tab.er.24h Nitroglycerin 0.4 mg SL Q5MPRN PRN #30 tab.subl PRN Reason: Chest Pain (4) Chest pain Qualifiers: Chest pain type: other chest pain Qualified Code(s): R07.89 - Other chest pain; R07.8 - Other chest pain (5) HTN (hypertension) Qualifiers: Hypertension type: essential hypertension Qualified Code(s): I10 - Essential (primary) hypertension
[2019-03-28] MEDS ORDERED: Warfarin perPT PO SCH (18:00)
[2019-03-28] MEDS ORDERED: *HR* Warfarin 2.5 MG TABLET PO ONE (18:00)
[2019-03-28] MEDS: traMADol 50 MG TABLET PO PRN (18:45)
[2019-03-28] MEDS: Heparin 25,000 UNIT/250 ML D5W 25,000 UNIT/250 ML IV.SOLN IVC SCH (21:01)
[2019-03-28] MEDS ORDERED: Melatonin 3 MG TABLET PO PRN (21:22)
[2019-03-28] MEDS: Ranolazine 500 MG TAB.ER.12H PO SCH (22:35)
[2019-03-29 00:41] LABS: Basophils # 0.1 K/mcL (0.0-0.2); Basophils % 0.6 %; Eosinophils # 0.3 K/mcL (0.0-0.6); Eosinophils % 4.4 %; Hematocrit 36.9 % (37.5-50.1); Hemoglobin 12.2 g/dL (12.9-16.9); Immature Granulocytes % 0.4 % (0-4); Lymphocytes # 1.4 K/mcL (0.6-4.6); Lymphocytes % 18.2 %; Mean Corpuscular HGB Conc 33.1 g/dL (31.6-35.5); Mean Corpuscular Hemoglobin 31.8 pg (28.0-33.3); Mean Corpuscular Volume 96.1 fL (83.0-100.0); Mean Platelet Volume 10.4 fL (9.4-12.4); Monocytes # 0.6 K/mcL (0.0-1.3); Monocytes % 8.2 %; Neutrophils # 5.3 K/mcL (1.6-8.9); Platelet Count 176 K/mcL (140-400); Red Blood Count 3.84 M/mcL (4.19-5.50); Red Cell Distribution Width 12.6 % (11.5-14.5); Segmented Neutrophils % 68.2 %; White Blood Count 7.8 K/mcL (4.3-11.1)
[2019-03-29 00:55] LABS: BUN/Creatinine Ratio 15 (6-26); Blood Urea Nitrogen 15 mg/dL (8-23); Calcium 7.9 mg/dL (8.6-10.3); Carbon Dioxide 21 mEq/L (23-29); Chloride 108 mEq/L (98-107); Glucose 179 mg/dL (70-105); Magnesium 1.9 mg/dL (1.6-2.6); Osmolality,Calculated 287 (280-300); Phosphorous 2.3 mg/dL (2.7-4.5); Potassium 3.7 mEq/L (3.5-5.1); Sodium 136 mEq/L (136-145); eGFR For African Americans > 60 (> 60); eGFR For Non-African Americans > 60 (> 60)
[2019-03-29 07:46] VITALS: BP 148/78
--- NOTE | 2019-03-29 09:13 | Urology - Consult Note ---
<Delmis Rayo N - Last Filed: 03/29/19 09:10> Date of Encounter: 03/29/19 Time of Encounter: 08:45 - Assessment and Plan (1) Urinary retention with incomplete bladder emptying Status: Acute Assessment and plan: Patient is an 88-year-old male who presents with urinary retention with incomplete bladder emptying. I placed a 16-Mexican coude catheter with minimal difficulty. Patient tolerated the procedure well. I experienced immediate ret urn of 800 mL of transparent, clear yellow urine. I discussed initiating Flomax daily and arranging for an outpatient voiding trial within 1 week of discharge. Patient is in agreement and verbalizes understanding. (2) Prostate cancer Status: Chronic Assessment and plan: Patient is an 88-year-old male who presents with a history of prostate cancer. Patient was treated with brachytherapy approximately 10 years ago. PSA from 2017 is reassuring at 0.21. Patient has upcoming annual appointment with Dr. Parikh. I will hold off on ordering a PSA secondary to indwelling Cain catheter, as this may falsely elevate PSA results. Urology CN:HPI Consult date: 03/29/19 Reason for consult Urology: Other (urinary retention; hx prostate cancer) Requesting physician: Viktor Gonzalez History of present illness: Patient is an 88-year-old male who presents with a history of urinary retention with incomplete bladder emptying as well as a history of prostate cancer. Patient presented to the emergency department with complaints of weakness, dyspnea and chest pain, and he subsequently underwent a cardiac catheterization. Patient reports feeling of increased urinary hesitancy, weak stream, dysuria and incontinence. Patient has a remote history of prostate cancer that was treated by brachytherapy approximately 10 years ago. Patient was previously established with a urologist at [facility], but he has been seeing Dr. Parikh since 2017. Patient has upcoming annual appointment with Dr. Parikh on 04/04/2019. PSA from March 2018 is 0.21. Patient has no known family history of prostate cancer or other malignancy. Patient underwent a bladder ultrasound revealing an enlarged prostate and elevated postvoid residual. On my evaluation, patient is sitting upright in bed holding urinal, and he is only able to pass small amounts of clear, yellow urine. Patient repor ts significant suprapubic discomfort. Past Med Surg Social Fam HX - Past Medical History Medical history: cancer (Prostate), DVT, diabetes, hyperlipidemia, hypertension Additional medical history: prostate cancer with seeds, filter , current blod clots Psychiatric history: no psych history - Past Surgical History Surgical History: herniorrhaphy Additional surgical history: Radiation seeds (118) 2009 - Social History Smoking Status: Never smoker Smokeless Tobacco Status: No Alcohol use: none Drug use: none - Family History Son Race: Family Member Ethnicity: Non- Living Status: Still Living Hx Family Cardiac Disorders: Yes (Son had 5 stents placed) Father Race: Family Member Ethnicity: Non- Living Status: Age at : 82 Cause of : CVA Hx Family Cardiac Disorders: Yes (CVA) Hx Family Neurologic Disorders: Yes (CVA) Mother Race: Family Member Ethnicity: Non- Living Status: Age at : 69 Cause of : Complications from DM Hx Family Cardiac Disorders: Yes (CAD, HTN) Hx Family Endocrine Disorder: Yes (DM) Brother Race: Family Member Ethnicity: Non- Living Status: Age at : 73 Cause of : VA Hx Family Cardiac Disorders: Yes (VA, HTN, CAD) Sister Race: Family Member Ethnicity: Non- Living Status: Still Living Hx Family Cardiac Disorders: Yes (CVA x3) Hx Family Musculoskeletal Disorders: Yes (hip replaced) Hx Family Neurologic Disorders: Yes (CVAs) Daughter Race: Family Member Ethnicity: Non- Living Status: Hx Family Endocrine Disorder: Yes (DM) Medications and Allergies Losartan Potassium [Cozaar] 50 mg PO DAILY 06/05/17 [History] Timolol [Betimol] 1 drop LEFT EYE DAILY 04/10/18 [History] Warfarin Sodium 1.25 mg PO SUTUWEFR 04/10/18 [History] Warfarin Sodium 2.5 mg PO MOTHSA 04/10/18 [History] Omeprazole [PriLOSEC] 20 mg PO BID 04/24/18 [History] Rosuvastatin Calcium [Crestor] 10 mg PO DAILY 03/24/19 [History] metFORMIN [Glucophage] 500 mg PO BIDWM 03/24/19 [History] Metoprolol Succinate [Toprol Xl] 12.5 mg PO DAILY 03/25/19 [History] Aspirin 81 mg PO DAILY #30 tab.chew 03/26/19 [Rx] Nitroglycerin 0.4 mg SL Q5MPRN PRN #30 tab.subl 03/26/19 [Rx] Tamsulosin [Flomax] 0.4 mg PO DAILY 30 Days #30 capsule 03/29/19 [Rx] amLODIPine [Norvasc] 5 mg PO DAILY 30 Days #30 tablet 03/29/19 [Rx] Allergy/AdvReac Type Severity Reaction Status Date / Time No Known Allergies Allergy Verified 03/24/19 19:51 Review of Systems - Constitutional no chills, no fatigue, no fever(s) - EENT Nose, mouth and throat: no dizziness, no headache(s) - Cardiovascular no chest pain, no diaphoresis, no dyspnea - Respiratory no cough, no dyspnea - Gastrointestinal abdominal pain, no nausea, no vomiting - Genitourinary change in urinary stream, difficulty urinating, dysuria, nocturia, urinary frequency, urinary hesitancy, urinary incontinence, urinary urgency, no flank pain, no hematuria - Musculoskeletal no back pain, no muscle weakness - Integumentary no erythema, no rash - Neurological no confusion, no sensory deficit, no syncope - Psychiatric no anxiety, no confusion - Hematologic/Lymphatic no easy bleeding, no easy bruising - Allergic/Immunologic no throat swelling, no wheezing Exam Initial Vital Signs Temp Pulse Resp BP Pulse Ox 98.3 F 91 18 154/83 98 03/24/19 19:51 03/24/19 19:51 03/24/19 19:51 03/24/19 19:51 03/24/19 19:51 - General physical appearance Present: no distress, moderate pain - Eyes Present: PERRL, normal ocular movement - ENT Present: normal nares, no hearing loss, no congestion - Neck Present: no masses, trachea midline, no lymphadenopathy - Respiratory Present: normal respiratory effort - Cardiovascular Cardiovascular exam IM: RRR - Abdomen Abdomen: Present: soft, suprapubic tenderness. Absent: distended - Genitourinary normal penis with no external lesions, other (Transparent, clear yellow urine) Penis: Present: retractable foreskin Urethral meatis: Present: patent - Integumentary Present: no rash, no abnormal pigmentation - Neurologic Present: normal coordination - Musculoskeletal Present: other (Normal posture) Urology Results - Labs 03/29/19 00:23 03/29/19 00:23 Abnormal lab results RBC 3.84 M/mcL (4.19-5.50) L 03/29/19 00:23 Hgb 12.2 g/dL (12.9-16.9) L 03/29/19 00:23 Hct 36.9 % (37.5-50.1) L 03/29/19 00:23 PT 16.8 Seconds (9.4-12.1) H 03/28/19 04:23 Heparin Anti-Xa, Unfract 0.02 IU/mL (0.30-0.70) L 03/28/19 18:39 Sodium 134 mEq/L (136-145) L 03/25/19 12:59 Chloride 108 mEq/L (98-107) H 03/29/19 00:23 Carbon Dioxide 21 mEq/L (23-29) L 03/29/19 00:23 BUN 26 mg/dL (8-23) H 03/27/19 04:36 Creatinine 1.39 mg/dL (0.70-1.30) H 03/27/19 04:36 Est GFR ( Amer) 59 (> 60) L 03/27/19 04:36 Est GFR (Non-Af Amer) 48 (> 60) L 03/27/19 04:36 Glucose 179 mg/dL (70-105) H 03/29/19 00:23 POC Glucose 124 mg/dL (70-99) H 03/29/19 07:38 Hemoglobin A1c 7.0 % (-5.6) H 03/25/19 05:06 Calcium 7.9 mg/dL (8.6-10.3) L 03/29/19 00:23 Phosphorus 2.3 mg/dL (2.7-4.5) L 03/29/19 00:23 Troponin I 0.04 ng/mL (< 0.04) H* 03/25/19 05:06 Triglycerides 168 mg/dL (< 150) H 03/25/19 05:06 VLDL Cholesterol, Calc 34 mg/dL (< 31) H 03/25/19 05:06 HDL Cholesterol 27 mg/dL (40-59) L 03/25/19 05:06 Diabetes panel 03/29/19 Range/Units 00:23 Sodium 136 (136-145) mEq/L Potassium 3.7 (3.5-5.1) mEq/L Chloride 108 H (98-107) mEq/L Carbon Dioxide 21 L (23-29) mEq/L BUN 15 (8-23) mg/dL Creatinine 0.98 (0.70-1.30) mg/dL Glucose 179 H (70-105) mg/dL Calcium 7.9 L (8.6-10.3) mg/dL Calcium panel 03/29/19 Range/Units 00:23 Calcium 7.9 L (8.6-10.3) mg/dL Phosphorus 2.3 L (2.7-4.5) mg/dL Pituitary panel 03/29/19 Range/Units 00:23 Sodium 136 (136-145) mEq/L Potassium 3.7 (3.5-5.1) mEq/L Chloride 108 H (98-107) mEq/L Carbon Dioxide 21 L (23-29) mEq/L BUN 15 (8-23) mg/dL Creatinine 0.98 (0.70-1.30) mg/dL Glucose 179 H (70-105) mg/dL Calcium 7.9 L (8.6-10.3) mg/dL Adrenal panel 03/29/19 Range/Units 00:23 Sodium 136 (136-145) mEq/L Potassium 3.7 (3.5-5.1) mEq/L Chloride 108 H (98-107) mEq/L Carbon Dioxide 21 L (23-29) mEq/L BUN 15 (8-23) mg/dL Creatinine 0.98 (0.70-1.30) mg/dL Glucose 179 H (70-105) mg/dL Calcium 7.9 L (8.6-10.3) mg/dL All other labs normal. - Imaging US - kidney/bladder: report reviewed Procedures:Urology - Catheter Insertion (Urinary) Prophylactic antibiotics given: No Bladder Scan/Ultrasound used before catheterization: Yes (>400 cc) Estimated amount of urin (mLs): 800 Preparation: Povidone-Iodine Type of catheter inserted: 2 way, silastic Catheter Mexican Size: 16 Topical anesthesia used: No Results: successfully catheterized-immediate flow Urine Appearance: Clear Patient tolerated procedure: well, no complications Complications: none Additional comments: Patient appears in discomfort upon my entry to the room. Patient lying in supine position. Patient is in agreement to proceed with catheter placement. Patient was prepped and aped in normal sterile fashion. I gently inserted a 16-Mexican coude tip catheter into the patient's urethral meatus, advancing it into the bladder. I met minimal resistance proximally. I experienced immediate return of transparent, clear yellow urine. I instilled 10 mL of sterile water into catheter balloon. Patient tolerated the procedure well without complication. Consult Discharge Plan - Plan Instructions: Amlodipine (By mouth), Enoxaparin (Injection), Tamsulosin (By mouth), Chest Pain (DC), Cain Catheter Placement and Care (DC), Chronic Hypertension (DC), Urinary Leg Bag (GEN) Referrals: Erasmo Argueta, RANI [Advanced Practice Nurse] - (Office to call with appointment. 3-4 weeks) Giovanni Morrow MD [Primary Care Provider] - 04/03/19 11:30 am Delmis Rayo PAC [Physician Roving Can Tender] - 04/04/19 2:00 pm Prescriptions: Tamsulosin [Flomax] 0.4 mg PO DAILY 30 Days #30 capsule amLODIPine [Norvasc] 5 mg PO DAILY 30 Days #30 tablet <Melvin Gonzalez - Last Filed: 03/29/19 18:05> Date of Encounter: 03/29/19 - Assessment and Plan (1) Urinary retention with incomplete bladder emptying Status: Acute (2) Urinary retention Status: Acute Assessment and plan: Patient seen in conjunction with physician insurance claims assistant. Patient had significant incomplete emptying which was likely causing his symptoms. At this point the etiology behind the retention is unclear. This may be outlet obstruction despite previous prostate cancer treatment versus neurogenic bladder. Regardless will continue tamsulosin. Follow-up for voiding trial. Exam Initial Vital Signs Temp Pulse Resp BP Pulse Ox 98.3 F 91 18 154/83 98 03/24/19 19:51 03/24/19 19:51 03/24/19 19:51 03/24/19 19:51 03/24/19 19:51 Urology Results - Labs 03/29/19 00:23 03/29/19 00:23 Abnormal lab results RBC 3.84 M/mcL (4.19-5.50) L 03/29/19 00:23 Hgb 12.2 g/dL (12.9-16.9) L 03/29/19 00:23 Hct 36.9 % (37.5-50.1) L 03/29/19 00:23 PT 16.9 Seconds (9.4-12.1) H 03/29/19 10:54 Heparin Anti-Xa, Unfract 0.02 IU/mL (0.30-0.70) L 03/28/19 18:39 Sodium 134 mEq/L (136-145) L 03/25/19 12:59 Chloride 108 mEq/L (98-107) H 03/29/19 00:23 Carbon Dioxide 21 mEq/L (23-29) L 03/29/19 00:23 BUN 26 mg/dL (8-23) H 03/27/19 04:36 Creatinine 1.39 mg/dL (0.70-1.30) H 03/27/19 04:36 Est GFR ( Amer) 59 (> 60) L 03/27/19 04:36 Est GFR (Non-Af Amer) 48 (> 60) L 03/27/19 04:36 Glucose 179 mg/dL (70-105) H 03/29/19 00:23 POC Glucose 124 mg/dL (70-99) H 03/29/19 07:38 Hemoglobin A1c 7.0 % (-5.6) H 03/25/19 05:06 Calcium 7.9 mg/dL (8.6-10.3) L 03/29/19 00:23 Phosphorus 2.3 mg/dL (2.7-4.5) L 03/29/19 00:23 Troponin I 0.04 ng/mL (< 0.04) H* 03/25/19 05:06 Triglycerides 168 mg/dL (< 150) H 03/25/19 05:06 VLDL Cholesterol, Calc 34 mg/dL (< 31) H 03/25/19 05:06 HDL Cholesterol 27 mg/dL (40-59) L 03/25/19 05:06 Diabetes panel 03/29/19 Range/Units 00:23 Sodium 136 (136-145) mEq/L Potassium 3.7 (3.5-5.1) mEq/L Chloride 108 H (98-107) mEq/L Carbon Dioxide 21 L (23-29) mEq/L BUN 15 (8-23) mg/dL Creatinine 0.98 (0.70-1.30) mg/dL Glucose 179 H (70-105) mg/dL Calcium 7.9 L (8.6-10.3) mg/dL Calcium panel 03/29/19 Range/Units 00:23 Calcium 7.9 L (8.6-10.3) mg/dL Phosphorus 2.3 L (2.7-4.5) mg/dL Pituitary panel 03/29/19 Range/Units 00:23 Sodium 136 (136-145) mEq/L Potassium 3.7 (3.5-5.1) mEq/L Chloride 108 H (98-107) mEq/L Carbon Dioxide 21 L (23-29) mEq/L BUN 15 (8-23) mg/dL Creatinine 0.98 (0.70-1.30) mg/dL Glucose 179 H (70-105) mg/dL Calcium 7.9 L (8.6-10.3) mg/dL Adrenal panel 03/29/19 Range/Units 00:23 Sodium 136 (136-145) mEq/L Potassium 3.7 (3.5-5.1) mEq/L Chloride 108 H (98-107) mEq/L Carbon Dioxide 21 L (23-29) mEq/L BUN 15 (8-23) mg/dL Creatinine 0.98 (0.70-1.30) mg/dL Glucose 179 H (70-105) mg/dL Calcium 7.9 L (8.6-10.3) mg/dL All other labs normal.
--- NOTE | 2019-03-29 09:52 | Cardiology Progress Note ---
Date of Encounter: 03/29/19 Time of Encounter: 09:50 Assessment and Plan (1) Chest discomfort Current Visit: Yes Status: Acute Chest discomfort of unclear significance. Serial troponin measurements negative. Chest pain continues to be intermittent. Prior stress test mildly abnormal - small area of apical lateral ischemia. Discussed options, including medical therapy +/- LHC. Recommend continue aspirin/statin/ARB therapy. Started Imdur as outpt 01/2019. Per pt, unable to tolerate due to dizziness. Repeat TTE LVEF 60-65%. Mild cLVH. Mild LVDD. Normal RV. Mild TR. Given pt's age, preserved EF and only a mildly abnormal stress, recommended continued medical management. However, intermittent chest pain persisted and pt and family wished to pursue LHC. LHC yesterday showed severe one vessel coronary artery disease - PLB. Diagonal LV fistula. Normal LV function. Recommendations: Optimal medical therapy of patient's disease. Aggressive risk factor modification. Ranexa 500mg po BID (history of side effects with Imdur). Consider evaluation for ligation or coiling of diagonal LV fistula if persistent symptoms. Right radial access site healing well. No bleeding, hematoma or ecchymosis noted. Restrictions discussed. Cardiology signing off. Reconsult PRN. Will coordinate outpt follow-up in 3-4 weeks. (2) CAD (coronary artery disease) Current Visit: Yes Status: Acute As above, ASA, Statin, BB, Ranexa, ARB. Qualifiers: Coronary Disease-Associated Artery/Lesion type: [place] artery [place] vs. transplanted heart: [place] heart Associated angina: angina presence unspecified Qualified Code(s): I25.10 - Atherosclerotic heart disease of [place] coronary artery without angina pectoris Discussion w patient/family: The assessment and plan as outlined above was discussed with the patient and/or family members who expressed understanding and agreement. All questions were answered. Thank you for involving us in the care of your patient. Please call with any questions. I will discuss all the above with Dr. Guevara and make changes as necessary. Subjective Principal diagnosis: Chest pain Interval history: Reports brief episode of chest pain this AM. Chest pain free currently. Objective Vital Signs, Last 4 Hours Temp Pulse Resp BP Pulse Ox 03/29/19 07:43 98.4 F 63 16 148/78 96 Vital Signs Temp Pulse Resp BP Pulse Ox 03/29/19 07:43 98.4 F 63 16 148/78 96 03/29/19 04:09 98.6 F 57 16 141/74 94 03/28/19 23:59 98.3 F 59 17 130/66 94 03/28/19 22:38 96 03/28/19 21:07 98.4 F 60 17 158/75 96 03/28/19 16:17 97.9 F 55 14 148/68 95 03/28/19 15:45 97.8 F 65 14 152/78 95 03/28/19 15:12 97.7 F 59 14 145/81 96 03/28/19 14:45 97.4 F L 53 14 150/86 95 03/28/19 14:30 97.6 F 54 14 141/80 93 03/28/19 14:15 98.4 F 52 14 137/70 96 03/28/19 14:00 98.1 F 52 14 141/73 96 03/28/19 11:07 98.5 F 57 18 151/87 97 03/28/19 09:59 95 Intake and Output 03/28/19 03/29/19 03/29/19 23:59 07:59 15:59 Intake Total 220 / 308.8 1070 / 1430 360 / 1430 Output Total 400 / 550 150 / 150 Balance -180 / -241.2 920 / 1280 360 / 1280 Intake: IV Fluids 100 / 188.8 1070 / 1070 0.9 % Sodium Chloride 1,000 ML 1000 / 1000 @ 100 mls/hr IVC .Q10H [facility] Rx#: [id number] Heparin 25,000 UNIT/250 ML D5W 100 / 188.8 70 / 70 25,000 unit In 250 ml @ 14 UNIT /KG/HR 12.166 mls/hr IVC . [id number] [facility] Rx#:[id number] Oral 120 / 120 0 / 360 360 / 360 Output: Urine 400 / 550 150 / 150 Other: Meal Dinner Breakfast Percent of Meal Consumed 90% 25% Weight 87.1 kg Blood Glucose* 182 124 Patient Weight 03/29/19 23:59 Weight 87.1 kg General: Conversant, No Apparent Distress HEENT: Atraumatic, Normocephaly, Mucus Membranes Moist Neck: No JVD, Normal carotid pulses Cardiac: Reg Rate and Rhythm, Normal S1 and S2, No Murmur Lungs: Normal Breath Sounds, No Wheeze, Rales, Rhonchi Neuro: Alert and responsive, No focal deficits noted Abdomen: Soft, Non-Tender Skin: No rashes noted on visualized skin Musculoskeletal: No Chest Wall Tenderness Extremities: No Clubbing, No Cyanosis, No Edema, Normal Pulses Results 03/29/19 00:23 03/29/19 00:23 Lab Results 03/29/19 03/29/19 00:23 00:23 WBC 7.8 Hgb 12.2 L Hct 36.9 L Plt Count 176 Sodium 136 Potassium 3.7 Chloride 108 H Carbon Dioxide 21 L BUN 15 Creatinine 0.98 Glucose 179 H Calcium 7.9 L Magnesium 1.9 Short CBC 03/29/19 Range/Units 00:23 WBC 7.8 (4.3-11.1) K/mcL Hgb 12.2 L (12.9-16.9) g/dL Hct 36.9 L (37.5-50.1) % Plt Count 176 (140-400) K/mcL Neutrophils # 5.3 (1.6-8.9) K/mcL BMP 03/29/19 Range/Units 00:23 Sodium 136 (136-145) mEq/L Potassium 3.7 (3.5-5.1) mEq/L Chloride 108 H (98-107) mEq/L Carbon Dioxide 21 L (23-29) mEq/L BUN 15 (8-23) mg/dL Creatinine 0.98 (0.70-1.30) mg/dL Glucose 179 H (70-105) mg/dL Calcium 7.9 L (8.6-10.3) mg/dL Impressions Bladder Ultrasound 03/28/19 20:00 IMPRESSION: Patient unable to void despite large bladder volume. Cannot exclude obstruction. Enlarged prostate. The findings were sent to the Radiology Results Communication Center at 11:01 pm on 03/28/2019to be communicated to a licensed caregiver. D/ / 03/28/2019 23:13:43 Xavier Ontiveros / Mary Kay Calle Interpreting Provider: Xavier Ontiveros Active Medications Acetaminophen (Tylenol) 650 mg PO Q6H PRN PRN Reason: Mild Pain/Fever Stop: 09/24/19 03:09 Last Admin: 03/25/19 11:13 Dose: 650 mg Documented by: Aspirin (Aspirin) 81 mg PO DAILY [facility] Stop: 09/25/19 09:01 Last Admin: 03/28/19 09:53 Dose: 81 mg Documented by: Atorvastatin Calcium (Lipitor) 20 mg PO DAILY [facility] Stop: 09/24/19 09:01 Last Admin: 03/28/19 09:52 Dose: 20 mg Documented by: Dextrose/Water (Dextrose 50% (Syg)) 25 ml IVP AD PRN PRN Reason: Hypoglycemia Stop: 09/24/19 03:16 Glucagon (Glucagen) 1 mg IM ONCE PRN PRN Reason: Hypoglycemia Stop: 09/24/19 03:16 Glucose (Gluctose) 15 gm PO ONCE PRN PRN Reason: Hypoglycemia Stop: 09/24/19 03:16 Glucose (Gluctose) 30 gm PO ONCE PRN PRN Reason: Hypoglycemia Stop: 09/24/19 03:16 Heparin Sodium (Porcine) (Heparin) 6,100 unit 70 unit/kg (6100 unit) IVP Q6HR PRN PRN Reason: SEE COMMENTS Stop: 09/26/19 13:59 Last Admin: 03/28/19 19:18 Dose: 6,100 unit Documented by: Heparin Sodium (Porcine) (Heparin) 3,000 unit 35 unit/kg (3000 unit) IVP Q6H PRN PRN Reason: SEE COMMENTS Stop: 09/26/19 13:59 Last Admin: 03/28/19 05:22 Dose: 3,000 unit Documented by: Dextrose (Dextrose 5%) 1,000 mls @ 100 mls/hr IVC .Q10H PRN PRN Reason: HYPOGLYCEMIA Stop: 09/24/19 03:16 Heparin Sodium/Dextrose (Heparin 25,000 Unit/250 Ml D5w) 25,000 unit in 250 mls @ 12.166 mls/hr IVC .[id number] [facility]; Protocol Stop: 09/26/19 14:01 Last Titration: 03/29/19 06:49 Dose: 11.97 unit/kg/hr, 10.4 mls/hr Documented by: Insulin Human Lispro (Humalog) 0 units SQ HS [facility]; Protocol Stop: 09/24/19 21:01 Last Admin: 03/28/19 22:33 Dose: Not Given Documented by: Insulin Human Lispro (Humalog) 0 units SQ TIDAC [facility]; Protocol Stop: 09/24/19 07:31 Last Admin: 03/28/19 16:22 Dose: Not Given Documented by: Losartan Potassium (Cozaar) 50 mg PO DAILY [facility] Stop: 09/24/19 09:01 Last Admin: 03/28/19 09:52 Dose: 50 mg Documented by: Melatonin (Melatonin) 1.5 mg PO HS PRN PRN Reason: Insomnia Stop: 09/27/19 21:23 Last Admin: 03/28/19 22:37 Dose: 1.5 mg Documented by: Metoprolol Succinate (Toprol Xl) 12.5 mg PO DAILY [facility] Stop: 09/24/19 14:16 Last Admin: 03/28/19 09:52 Dose: 12.5 mg Documented by: Naloxone HCl (Narcan) 0.4 mg IVP Q2MPRN PRN PRN Reason: SEE COMMENTS Stop: 09/24/19 03:09 Nitroglycerin (Nitroglycerin) 0.4 mg SL Q5MPRN PRN PRN Reason: Chest Pain Stop: 09/24/19 03:16 Omeprazole (Prilosec) 20 mg PO BID [facility]; Protocol Stop: 09/24/19 09:01 Last Admin: 03/28/19 22:35 Dose: 20 mg Documented by: Ondansetron HCl (Zofran) 4 mg IVP Q8H PRN PRN Reason: Nausea And Vomiting Stop: 09/24/19 03:09 Ranolazine (Ranexa) 500 mg PO BID [facility] Stop: 09/27/19 21:01 Last Admin: 03/28/19 22:35 Dose: 500 mg Documented by: Tamsulosin HCl (Flomax) 0.4 mg PO DAILY [facility]; Protocol Stop: 09/29/19 09:01 Timolol Maleate (Timolol Maleate 0.5%) 1 drop LEFT EYE DAILY [facility] Stop: 09/24/19 09:01 Last Admin: 03/28/19 09:53 Dose: 1 drop Documented by: Tramadol HCl (Ultram) 50 mg PO Q6H PRN PRN Reason: Moderate Pain Stop: 09/24/19 03:09 Last Admin: 03/28/19 18:45 Dose: 50 mg Documented by: Warfarin Sodium (Coumadin Perpt) 1 each PO DAILY@1800 [facility]; Protocol Stop: 09/27/19 18:01 Last Admin: 03/29/19 08:02 Dose: Not Given Documented by: - Imaging and Cardiology Echo: report reviewed Cardiac cath: report reviewed - EKG Interpretation EKG results cardiology: other (12 hr tele AVG HR 55, SR) Consult Discharge Plan - Plan Referrals: Giovanni Morrow MD [Primary Care Provider] -
[2019-03-29] MEDS: Aspirin 81 MG TAB.CHEW PO SCH (10:10)
[2019-03-29] MEDS: Insulin LISPRO 300 UNITS/3 ML VIAL SQ SCH (10:10)
[2019-03-29] MEDS: Metoprolol XL (24 HR) Succ 25 MG TAB.ER.24H PO SCH (10:11)
[2019-03-29] MEDS: Ranolazine 500 MG TAB.ER.12H PO SCH (10:11)
--- NOTE | 2019-03-29 10:41 | Discharge Summary ---
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 patient admitted to the hospital due to chest pain r/o. cardiology consulted, patient underwent LHC: There is severe one vessel coronary artery disease - PLB. Diagonal LV fistula. Normal LV function. Apical lateral ischemia on stress (SDS 4). Cardiology recommended to add ranexa 500mg/PO BID and to consider evaluation for ligation or coiling of diagonal LV fistula if persistent. During this admission patient reported supra-pubic abdominal pain, a bladder US was done: Patient unable to void despite large bladder volume. Cannot exclude obstruction. Enlarged prostate. urology consulted, dumont catheter inserted, recommended outpatient follow up within a week for a voiding trial. Patient on warfarin due to Hx of DVT, during this admission warfarin was held on preparation for LHC, INR not therapeutic, Patient is being discharged on enoxaparin subq as a bridge. Patient has been connected with the [facility] for outpatient follow of INR. Patient is clinically stable to be discharged home with home health. - Time Spent with Patient Total time spent providing and/or coordinating discharge services: Time spent: Greater than 30 minutes (35) - Discharge Medications Prescriptions: New Nitroglycerin 0.4 mg SL Q5MPRN PRN #30 tab.subl PRN Reason: Chest Pain Aspirin 81 mg PO DAILY #30 tab.chew Tamsulosin [Flomax] 0.4 mg PO DAILY 30 Days #30 capsule amLODIPine [Norvasc] 5 mg PO DAILY 30 Days #30 tablet Continued Losartan Potassium [Cozaar] 50 mg PO DAILY Warfarin Sodium 2.5 mg PO MOTHSA Warfarin Sodium 1.25 mg PO SUTUWEFR Timolol [Betimol] 1 drop LEFT EYE DAILY Omeprazole [PriLOSEC] 20 mg PO BID metFORMIN [Glucophage] 500 mg PO BIDWM Rosuvastatin Calcium [Crestor] 10 mg PO DAILY Metoprolol Succinate [Toprol Xl] 12.5 mg PO DAILY Discontinued Isosorbide MONOnitrate (24 HR) [Imdur] 30 mg PO DAILY Home Medications: Losartan Potassium [Cozaar] 50 mg PO DAILY 06/05/17 [History] Timolol [Betimol] 1 drop LEFT EYE DAILY 04/10/18 [History] Warfarin Sodium 1.25 mg PO SUTUWEFR 04/10/18 [History] Warfarin Sodium 2.5 mg PO MOTHSA 04/10/18 [History] Omeprazole [PriLOSEC] 20 mg PO BID 04/24/18 [History] Rosuvastatin Calcium [Crestor] 10 mg PO DAILY 03/24/19 [History] metFORMIN [Glucophage] 500 mg PO BIDWM 03/24/19 [History] Metoprolol Succinate [Toprol Xl] 12.5 mg PO DAILY 03/25/19 [History] Aspirin 81 mg PO DAILY #30 tab.chew 03/26/19 [Rx] Nitroglycerin 0.4 mg SL Q5MPRN PRN #30 tab.subl 03/26/19 [Rx] Tamsulosin [Flomax] 0.4 mg PO DAILY 30 Days #30 capsule 03/29/19 [Rx] amLODIPine [Norvasc] 5 mg PO DAILY 30 Days #30 tablet 03/29/19 [Rx] Allergies/Adverse Reactions: Allergy/AdvReac Type Severity Reaction Status Date / Time No Known Allergies Allergy Verified 03/24/19 19:51 Date of admission: 03/29/19 07:50 Primary care physician: Giovanni Morrow MD Consults: 03/25/19 01:29 Consult to Nutrition [CONS] Routine Comment: Consulting Provider: NUTRITION Reason for Dietary Consult: MST Score PO Supplementation Consult to Pastoral Services [CONS] Routine Comment: 03/25/19 03:12 Consult to Attraction Worker [CONS] Routine Reason for SW Consult: Please assess patient for possible home needs for post-discharge planning. 03/25/19 04:27 Consult to Cardiology [CONS] Routine Comment: Consulting Provider: Daneile Yoder Reason for Consult: Patient reports CP and SOB for the past several days. Hx of abnormal nuclear stress in November 2018. Call Completed: No 03/26/19 14:09 Consult to Occupational Therapy [CONS] Routine Comment: Evaluate, develop and implement POC Reason for Consult: weakness Does patient have active BEDREST order?: No Is patient medically & hemodynamically stable?: Yes Patient assessed for mobility or mobilized this visit?: No Consult to Physical Therapy [CONS] Routine Comment: Evaluate, develop and implement POC Reason for Consult: weakness Does patient have active BEDREST order?: No Is patient medically & hemodynamically stable?: Yes Patient assessed for mobility or mobilized this visit?: No 03/27/19 07:23 Consult to Cardiology [CONS] Routine Comment: Consulting Provider: Daniele Yoder Reason for Consult: pt says he can't take imdur and wants to discuss other meds vs cath Call Completed: Yes 03/28/19 16:04 Consult to Urology [CONS] Routine Consulting Provider: Urology Beba Reason for Consult: Hx of Prostate CA. patient with 2 weeks hx of dysuria. UA: nondiagnostic for UTI. Call Completed: Yes - Constitutional Vitals: Temp Pulse Resp BP Pulse Ox 98.4 F 63 16 148/78 96 03/29/19 07:43 03/29/19 07:43 03/29/19 07:43 03/29/19 07:43 03/29/19 07:43 General appearance: Present: cooperative, A&O X 3, pleasant, no acute distress, answers questions appropriately Exam: Vitals: Reviewed General: Alert and oriented x4. In no distress Cardiovascular: RRR, normal S1 & S2, no rubs, murmurs or gallops. Lungs: CTA b/l, no wheezes or crackles. Abdomen: Soft, non-tender, no rigidity. Extremities: No edema Neurological: No focal neurological abnormalities. Rest of the physical exam is non contributory - Patient Status Disposition: Home Health Service Condition: Fair Functional capacity at discharge: independent ambulation Overall status at discharge: patient is progressing back to baseline - Discharge Instructions Follow Up With: Giovanni Morrow MD [Primary Care Provider] - - Diet and Activity Activity: as per physical therapy Diet: diabetic diet
[2019-03-29] MEDS ORDERED: amLODIPine 5 MG TABLET PO SCH (10:47)
--- NOTE | 2019-03-29 10:51 | Physician Discharge Referral ---
Home Health/Hosp Referral Info Transfer to: Home Health - Diagnosis (1) DVT prophylaxis Priority: Secondary Status: Acute (2) Hx of deep venous thrombosis Priority: Primary Status: Chronic (3) KRYSTEN (acute kidney injury) Priority: Primary Status: Resolved (4) Chest pain Priority: Primary Status: Resolved (5) HTN (hypertension) Priority: Secondary Status: Chronic - Respiratory Orders None Smoking Cessation: Smoking cessation has been advised. For more information, call the [place] Tobacco Quit Line at 5-839-ZNTU-NOW. - Diet/Nutrition Diet/Nutrition Orders: Regular - Activity Activity Orders: Ambulate - Services Needed Following services are medically necessary services: Nursing, Home Health Aide, Physical Therapy, Occupational Therapy, Med Social Work - Transfer Medications Prescriptions: Tamsulosin [Flomax] 0.4 mg PO DAILY 30 Days #30 capsule amLODIPine [Norvasc] 5 mg PO DAILY 30 Days #30 tablet Home Medications: Losartan Potassium [Cozaar] 50 mg PO DAILY 06/05/17 [History] Timolol [Betimol] 1 drop LEFT EYE DAILY 04/10/18 [History] Warfarin Sodium 1.25 mg PO SUTUWEFR 04/10/18 [History] Warfarin Sodium 2.5 mg PO MOTHSA 04/10/18 [History] Omeprazole [PriLOSEC] 20 mg PO BID 04/24/18 [History] Rosuvastatin Calcium [Crestor] 10 mg PO DAILY 03/24/19 [History] metFORMIN [Glucophage] 500 mg PO BIDWM 03/24/19 [History] Metoprolol Succinate [Toprol Xl] 12.5 mg PO DAILY 03/25/19 [History] Aspirin 81 mg PO DAILY #30 tab.chew 03/26/19 [Rx] Nitroglycerin 0.4 mg SL Q5MPRN PRN #30 tab.subl 03/26/19 [Rx] Tamsulosin [Flomax] 0.4 mg PO DAILY 30 Days #30 capsule 03/29/19 [Rx] amLODIPine [Norvasc] 5 mg PO DAILY 30 Days #30 tablet 03/29/19 [Rx] Allergies/Adverse Reactions: Allergy/AdvReac Type Severity Reaction Status Date / Time No Known Allergies Allergy Verified 03/24/19 19:51 Certification: Further, I certify that my clinical findings support that this patient is homebound (i.e. absences from home require considerable and taxing effort and are for medical reasons or islam services or infrequently or short duration when for other reasons) because: Homebound Reason: Patient requires assistance of a person or device to safely leave home Attestation: My signature below is to certify that this patient is under my care and that I, or nurse practitioner, or a physician's production assistant working with me, has a [id number] encounter with this patient.
--- NOTE | 2019-03-29 11:12 | Electrocardiograph Report ---
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
[2019-03-29 11:14] LABS: INR 1.5; Prothrombin Time 16.9 Seconds (9.4-12.1)
== END 2019-03-29 14:44 | disposition home health service (06) | DRG 287 ==
LOC: 3NENU 19:12 → EMEROOARM 19:12 → SUATTDRO 03-25 00:08 → 3NENU 03-25 00:42 → 2NENU 03-28 07:54
PROVIDERS: ADMIT Internal Medicine; ATTEND Internal Medicine